=== PATIENT | female | born 1955 | race Caucasian/White ===

== ENCOUNTER → 2016-03-16 | Outpatient (REF) | payer OTHER ==
[2016-03-16 17:31] LABS: ANION GAP 6 MEQ/L (8-16); BLOOD UREA NITROGEN 10 MG/DL (7-18); CALCIUM LEVEL 9.5 MG/DL (8.8-10.2); CARBON DIOXIDE LEVEL 32 MEQ/L (21-32); CHLORIDE LEVEL 104 MEQ/L (98-107); CREATININE FOR GFR 0.76 MG/DL (0.55-1.02); GLOMERULAR FILTRATION RATE > 60.0 (>45); GLUCOSE, FASTING 91 MG/DL (80-110); POTASSIUM SERUM 4.2 MEQ/L (3.5-5.1); SODIUM LEVEL 142 MEQ/L (136-145)
[2016-03-16 18:17] LABS: MEAN CORPUSCULAR HGB CONC 33.5 g/dl (32.0-36.5); MEAN CORPUSCULAR VOLUME 89.6 fl (80.0-96.0); RED CELL DISTRIBUTION WIDTH 13.2 % (11.5-14.5)
== END ==
LOC: M SFHCLERA 11:08
PROVIDERS: ATTEND Family Medicine
DX: R53.82 Chronic fatigue, unspecified (principal); E55.9 Vitamin D deficiency, unspecified

== ENCOUNTER → 2016-06-15 | Outpatient (REF) | payer OTHER ==
[2016-06-15 11:58] LABS: MEAN CORPUSCULAR HEMOGLOBIN 30.9 pg (27.0-33.0); MEAN CORPUSCULAR HGB CONC 34.2 g/dl (32.0-36.5); MEAN CORPUSCULAR VOLUME 90.4 fl (80.0-96.0); RED CELL DISTRIBUTION WIDTH 13.9 % (11.5-14.5)
[2016-06-15 12:19] LABS: ALBUMIN 3.3 GM/DL (3.2-5.2); ALBUMIN/GLOBULIN RATIO 1.03 (1.00-1.93); ALKALINE PHOSPHATASE 46 U/L (45-117); ALT/SGPT 24 U/L (12-78); ANION GAP 5 MEQ/L (8-16); AST/SGOT 27 U/L (15-37); BILIRUBIN,TOTAL 0.6 MG/DL (0.2-1.0); BLOOD UREA NITROGEN 11 MG/DL (7-18); CALCIUM LEVEL 8.4 MG/DL (8.8-10.2); CARBON DIOXIDE LEVEL 32 MEQ/L (21-32); CHLORIDE LEVEL 105 MEQ/L (98-107); CHOLESTEROL LEVEL 142 MG/DL (<200); CREATININE FOR GFR 0.71 MG/DL (0.55-1.02); GLOMERULAR FILTRATION RATE > 60.0 (>45); GLUCOSE, FASTING 86 MG/DL (80-110); POTASSIUM SERUM 4.4 MEQ/L (3.5-5.1); SODIUM LEVEL 142 MEQ/L (136-145); TOTAL PROTEIN 6.5 GM/DL (6.4-8.2); TRIGLYCERIDES LEVEL 66 MG/DL (<150)
== END ==
LOC: M SFHCLERA 09:46
PROVIDERS: ATTEND Family Medicine
DX: E78.2 Mixed hyperlipidemia (principal); R73.02 Impaired glucose tolerance (oral); R53.82 Chronic fatigue, unspecified; E55.9 Vitamin D deficiency, unspecified

== ENCOUNTER → 2017-01-25 | Outpatient (REF) | payer OTHER | LOC: M SFHCLERA 09:32 | PROVIDERS: ATTEND Family Medicine | DX: R53.82 Chronic fatigue, unspecified (principal); E78.5 Hyperlipidemia, unspecified ==

== ENCOUNTER → 2017-07-19 | Outpatient (CLI) | payer BC, OTHER ==
[2017-07-19 15:35] LABS: ALBUMIN 3.5 GM/DL (3.2-5.2); ALBUMIN/GLOBULIN RATIO 1.09 (1.00-1.93); ALKALINE PHOSPHATASE 51 U/L (45-117); ALT/SGPT 24 U/L (12-78); ANION GAP 6 MEQ/L (8-16); AST/SGOT 28 U/L (7-37); BILIRUBIN,TOTAL 0.7 MG/DL (0.2-1.0); BLOOD UREA NITROGEN 14 MG/DL (7-18); CARBON DIOXIDE LEVEL 32 MEQ/L (21-32); CHLORIDE LEVEL 103 MEQ/L (98-107); CHOLESTEROL LEVEL 132 MG/DL (<200); CHOLESTEROL RISK RATIO 2.588 (<5); CREATININE FOR GFR 0.73 MG/DL (0.55-1.30); GLOMERULAR FILTRATION RATE > 60.0 (>45); GLUCOSE, FASTING 94 MG/DL (70-100); HDL CHOLESTEROL 51 MG/DL (>40); LDL CHOLESTEROL 57.6 MG/DL (<100); NON-HDL-C 81 MG/DL; POTASSIUM SERUM 3.7 MEQ/L (3.5-5.1); SODIUM LEVEL 141 MEQ/L (136-145); TOTAL PROTEIN 6.7 GM/DL (6.4-8.2); TRIGLYCERIDES LEVEL 117 MG/DL (<150)
== END ==
LOC: M RAD 14:32
DX: Z12.31 Encounter for screening mammogram for malignant neoplasm of breast (principal); E78.2 Mixed hyperlipidemia; N60.31 Fibrosclerosis of right breast; N60.32 Fibrosclerosis of left breast
CPT/HCPCS: 77067

== ENCOUNTER 2017-10-07 10:54 | Emergency (ER) | payer BC, OTHER | END 2017-10-07 12:13 | disposition home or self-care (01) | LOC: M ED 10:54 | DX: S90.112A Contusion of left great toe without damage to nail, initial encounter (principal); W19.XXXA Unspecified fall, initial encounter; Y92.099 Unspecified place in other non-institutional residence as the place of occurrence of the external cause; Y93.9 Activity, unspecified; Y99.9 Unspecified external cause status; Z87.891 Personal history of nicotine dependence; Z79.82 Long term (current) use of aspirin; Z79.899 Other long term (current) drug therapy; Z88.5 Allergy status to narcotic agent; Z88.0 Allergy status to penicillin | CPT/HCPCS: 73660 ==

== ENCOUNTER → 2017-10-20 | Outpatient (CLI) | payer BC, OTHER | LOC: M RAD 08:08 | DX: M79.604 Pain in right leg (principal) | CPT/HCPCS: 73564 ==

== ENCOUNTER → 2020-03-05 | Outpatient (CLI) | payer MEDICARE, BC, OTHER ==
[~2020-03-05] MED LIST: ASPI81TA86 PO; ATOR1TAB21; CENT1TAB PO; CITA20TA6; LOSARTAN/HCT
[2020-03-05 11:45] LABS: BASO # 0.1 10^3/uL (0.0-0.2); BASO % 1.3 % (0.0-1.0); EOS # 0.2 10^3/uL (0.0-0.5); EOS % 3.4 % (0.0-3.0); HEMATOCRIT 40.4 % (36.0-47.0); HEMOGLOBIN 13.6 g/dl (12.0-15.5); LYMPH % 32.7 % (24.0-44.0); MEAN CORPUSCULAR HGB CONC 33.7 g/dl (32.0-36.5); MONO # 0.5 10^3/uL (0.0-0.8); MONO % 7.6 % (0.0-5.0); NEUTROPHILS # 3.4 10^3/uL (1.5-8.5); NEUTROPHILS % 54.5 % (36.0-66.0); PLATELET COUNT, AUTOMATED 224 10^3/uL (150-450); RED BLOOD COUNT 4.54 10^6/uL (4.00-5.40); WHITE BLOOD COUNT 6.2 10^3/uL (4.0-10.0)
[2020-03-05 12:50] LABS: BLOOD UREA NITROGEN 13 MG/DL (7-18); CALCIUM LEVEL 9.4 MG/DL (8.8-10.2); CARBON DIOXIDE LEVEL 31 MEQ/L (21-32); CHLORIDE LEVEL 104 MEQ/L (98-107); CHOLESTEROL LEVEL 125 MG/DL (<200); CHOLESTEROL RISK RATIO 2.906 (<5); GLOMERULAR FILTRATION RATE > 60.0 (>45); GLUCOSE, FASTING 98 MG/DL (70-100); HDL CHOLESTEROL 43 MG/DL (>40); LDL CHOLESTEROL 64 MG/DL (<100); NON-HDL-C 82 MG/DL; POTASSIUM SERUM 4.2 MEQ/L (3.5-5.1); SODIUM LEVEL 140 MEQ/L (136-145); TRIGLYCERIDES LEVEL 91 MG/DL (<150)
[2020-03-05 15:51] LABS: HEMOGLOBIN A1c 6.3 %
== END ==
LOC: M LAB 10:27
PROVIDERS: ATTEND Family Medicine
DX: E78.2 Mixed hyperlipidemia (principal); I10 Essential (primary) hypertension; R73.01 Impaired fasting glucose

== ENCOUNTER → 2021-01-02 | Outpatient (CLI) | payer MEDICARE, BC, OTHER ==
[~2021-01-02] MED LIST changes: +AMIT25TA17 PO; -ATOR1TAB21; +ATOR1TAB21 PO; -CITA20TA6; +CITA20TA6 PO; +HYDR12.55 PO; +LOSA50TA88 PO
== END ==
LOC: M LABSMTC 09:34
PROVIDERS: ATTEND Anesthesiology
DX: Z11.52 Encounter for screening for COVID-19 (principal); Z20.828 Contact with and (suspected) exposure to other viral communicable diseases

== ENCOUNTER 2021-01-07 07:45 | Day surgery (SDC) | payer MEDICARE, BC, OTHER ==
[~2021-01-07] VITALS: Ht 160 cm; Wt 113.1 kg
[~2021-01-07 07:45] MED LIST changes: +LIDOCAINE 2% 100MG/5ML SDV (FOR ANES.) As Ordered ONE; +NS 1,000 ML IV ONE; +propofoL 200 MG/20 ML VIAL As Ordered ONE
--- OUTSIDE RECORDS SUMMARY | 2021-01-07 07:49 | CCD | Continuity of Care Document ---
Author Author Ava WILSON DPM-PC Organization Unknown Address [address] [place] [address] Phone [phone] Care Team Providers Care Underground Roof Bolter Name Role Phone Formerly [facility], [facility] AUTM [phone] Problems Active Problems Provider Date Essential hypertension De Henderson MD Onset: 06/17/2020 Pure hypercholesterolemia De Henderson MD Onset: 021 Pain in limb Kayce Wilson DPM-pc Onset: 10/26/2020 Ingrowing nail Kayce Wilson DPM-pc Onset: 10/26/2020 Pronation Kayce Wilson DPM-pc Onset: 10/26/2020 Epidermoid cyst De Henderson MD Onset: 06/17/2020 Social History Type Date Description Comments Sex Unknown Tobacco Use Start: Unknown Patient has never smoked Smoking Status Reviewed: 10/26/20 Patient has never smoked Allergies, Adverse Reactions, Alerts Active Allergies Criticality Reaction | Severity Comments Date Penicillin V Unable to assess criticality 06/17/2020 Morphine Unable to assess criticality Nausea 10/26/2020 Medications Active Medications SIG Qnty Indications Ordering Provide r Date Hydrochlorothiazide 12.5mg Capsule s 1 tab every other day 90caps De Henderson MD 06/17/2020 Atorvastatin Calcium 20mg Tablets 1 by mouth every day 90tamartín Henderson MD 06/17/2020 Citalopram Hydrobromide 10mg Table ts 1 tablet by mouth daily. 90tamartín Henderson MD 06/18/19 Losartan Potassium 50mg Tablets Take One Tablet By Mouth Every Day Unknown Amitriptyline HCL 25mg Tablets Take One Tablet By Mouth AT Bedtime Unknown Multivitamin Tablets take one tablet by mouth every morning Unknown History Medications Lotrimin Ultra 1% Cream apply locally to skin rash twice daily for 6 weeks 24gm De Henderson MD 06/17/2020 - 10/26/2020 Immunizations Description No Information Available Vital Signs Date Vital Result Comment 07/09/2020 9:49am BP Systolic 115 mmHg BP Diastolic 78 mmHg Heart Rate 111 /min Body Temperature 98.6 F Respiratory Rate 18 /min O2 % BldC Oximetry 96 % Weight 255.00 lb Weight 115.668 kg Height 63 inches 5'3" BMI (Body Mass Index) 45.2 kg/m2 BSA (Body Surface Area) 2.14 m2 06/17/2020 10:47am BP Systolic 132 mmHg BP Diastolic 83 mmHg Heart Rate 90 /min Body Temperature 98.2 F Respiratory Rate 18 /min O2 % BldC Oximetry 97 % Weight 263.00 lb Weight 119.297 kg Height 63 inches 5'3" BMI (Body Mass Index) 46.6 kg/m2 BSA (Body Surface Area) 2.17 m2 Results Description No Information Available Procedures Date Code Description Status 10/26/2020 86483 Office/Outpatient New Low MDM 30 -44 Minutes Completed 10/26/2020 84941 Strapping Ankle/foot Completed 10/26/2020 12909 Excise Nail Bed & Matrix Complet ed 07/09/2020 78850 Office/Outpatient New SF MDM 15- 29 Minutes Completed 06/17/2020 97791 Office/Outpatient New SF MDM 15- 29 Minutes Completed Medical Devices Description No Information Available Encounters Description No Information Available Assessments Date Code Description Provider 10/26/2020 M21.6x9 Other acquired deformities of un specified foot Aj Stafford 10/26/2020 M76.62 Achilles tendinitis, left leg De Aj Canales 10/26/2020 L60.0 Ingrowing nail Aj Stafford 10/26/2020 M79.672 Pain in left foot Aj Stafford 07/09/2020 L72.3 Sebaceous cyst De Henderson MD 06/17/2020 L72.3 Sebaceous cyst De Henderson MD Plan of Treatment No Information Available Functional Status Description No Information Available Mental Status Description No Information Available Referrals Description No Information Available
--- OUTSIDE RECORDS SUMMARY | 2021-01-07 07:49 | CCD | Continuity of Care Document ---
Author Ava De Santiago DP- Organization Unknown Address [address] [place] [address] Phone [phone] Care Team Providers Care Room Attendant Name Role Phone [facility] AUTM [phone] Problems Active Problems Provider Date Essential hypertension De Henderson MD Onset: 06/17/2020 Pure hypercholesterolemia De Henderson MD Onset: 021 Epidermoid cyst De Henderson MD Onset: 06/17/2020 Social History Type Date Description Comments Sex Unknown Tobacco Use Start: Unknown Patient has never smoked Allergies, Adverse Reactions, Alerts Active Allergies Criticality Reaction | Severity Comments Date Penicillin V Unable to assess criticality 06/17/2020 Morphine Unable to assess criticality Nausea 10/26/2020 Medications Active Medications SIG Qnty Indications Ordering Provide r Date Hydrochlorothiazide 12.5mg Capsule s 1 tab every other day 90caps De Henderson MD 06/17/2020 Atorvastatin Calcium 20mg Tablets 1 by mouth every day 90tabs De Henderson MD 06/17/2020 Citalopram Hydrobromide 10mg Table ts 1 tablet by mouth daily. 90tabs De Henderson MD 06/18/19 21 Losartan Potassium 50mg Tablets Take One Tablet [...] Information Available Procedures Date Code Description Status 07/09/2020 08456 Office/Outpatient New [facility] 15- 29 Minutes Completed 06/17/2020 01524 Office/Outpatient New [facility] 15- 29 Minutes Completed Medical Devices Description No Information Available Encounters Description No Information Available Assessments Date Code Description Provider 07/09/2020 L72.3 Sebaceous cyst De Henderson MD 06/17/2020 L72.3 Sebaceous cyst De Henderson MD Plan of Treatment Future Appointment(s):* 11/04/2020 9:45 am - Kayce Cueva DPM-pc at [facility] Podiatry Functional Status Description No Information Available Mental Status Description No Information Available Referrals Description No Information Available
--- OUTSIDE RECORDS SUMMARY | 2021-01-07 07:49 | CCD | Continuity of Care Document ---
Author Ava Rosa Organization Unknown Address [address], [address] [place] [address] Phone [phone] Care Team Providers Care Grill Associate Name Role Phone Chapito Santana M.D. AUTM [phone] Problems Active Problems Provider Date Essential hypertension MICHI Espinosa Onset: 10/21/2020 Social History Type Date Description Comments Sex Unknown ETOH Use Rarely Recreational Drug Use Denies Drug Use Tobacco Use Start: Unknown End: Unknown Patient is a former smoker quit in early Allergies, Adverse Reactions, Alerts Active Allergies Criticality Reaction | Severity Comments Date Penicillin V Unable to assess criticality rash, vomiting 10/21/2020 Morphine Unable to assess criticality Rash, vomiting 10/21/2020 Medications Active Medications SIG Qnty Indications Ordering Provide r Date Amitriptyline HCL 25mg Tablets Take One Tablet By Mouth AT Bedtime Unknown Losartan Potassium 50mg Tablets Take One Tablet By Mouth Every Day Unknown Hydrochlorothiazide 12.5mg Tablets Take One Tablet By Mouth Every Morning Unknown Citalopram Hydrobromide 20mg Table ts Take One Tablet By Mouth Every Day Unknown Atorvastatin Calcium 20mg Tablets Take One Tablet By Mouth Every Day Unknown Centrum Silver 50+Women 50+Women T ablets 1 by mouth every day Unknown Stool Softener 100mg Capsules take one capsule by mouth once a day Unknown Immunizations Description No Information Available Vital Signs Date Vital Result Comment 10/21/2020 1:46pm BP Systolic 138 mmHg BP Diastolic 81 mmHg Heart Rate 87 /min Body Temperature 98.4 F Height 63 inches 5'3" Weight 251.00 lb BMI (Body Mass Index) 44.5 kg/m2 [place] Body Weight 115 lb Weight 113.854 kg BSA (Body Surface Area) 2.13 m2 Results Description No Information Available Procedures Date Code Description Status 10/21/2020 33486 Office/Outpatient New Low MDM 30 -44 Minutes Completed Medical Devices Description No Information Available Encounters Type Date Location Provider Dx Diagnosis Office Visit 10/21/2020 1:30p [facility] MICHI Walker Z12.11 Encounter for screening for malignant ne oplasm of colon Z80.0 Family history of malignant neoplasm of digestive organs Assessments Date Code Description Provider 10/21/2020 Z12.11 Encounter for screening for melissa gnant neoplasm of colon MICHI Espinosa 10/21/2020 Z80.0 Family history of malignant neop lasm of digestive organs MICHI Espinosa Plan of Treatment Future Appointment(s):* 01/18/2021 9:15 am - MICHI Espinosa at [facility] * 01/07/2021 9:00 am - Agapito Swartz JR, MD at [facility] 10/21/2020 - MICHI Espinosa* Z12.11 Encounter for screening for malignant neoplasm of colon * Z80.0 Family history of malignant neoplasm of digestive organs Functional Status Description No Information Available Mental Status Description No Information Available Referrals Description No Information Available
--- OUTSIDE RECORDS SUMMARY | 2021-01-07 07:49 | CCD | Continuity of Care Document ---
Author Ava Rosa Organization Unknown Address [address], [address] [place] [address] Phone [phone] Care Team Providers Care Coal Handling Supervisor Name Role Phone Chapito Santana M.D. AUTM [phone] Problems Active Problems Provider Date Essential hypertension [...] lb BMI (Body Mass Index) 44.5 kg/m2 [place] Body Weight 115 lb Weight 113.854 kg BSA (Body Surface Area) 2.13 m2 Results Description No Information Available Procedures Description No Information Available Medical Devices Description No Information Available Encounters Description No Information Available Assessments Date Code Description Provider 10/21/2020 Z12.11 Encounter for screening for melissa gnant neoplasm of colon MICHI Espinosa 10/21/2020 Z80.0 Family history of malignant neop lasm of digestive organs MICHI Epsinosa Plan of Treatment No Information Available Functional Status Description No Information Available Mental Status Description No Information Available Referrals Description No Information Available
--- OUTSIDE RECORDS SUMMARY | 2021-01-07 07:49 | CCD ---
Author Author [facility] Organization [facility] Address Unknown Phone Unavailable Care Team Providers Care Rental Sales Agent Name Role Phone Chapito Santana Unavailable PROBLEMS Type Condition ICD9-CM Code [id number] Code Onset Dates Condition S tatus W/U Status Risk SNOMED Code Notes Problem Essential (primary) hypertension I10 Active conf irmed 91569850 Problem Impaired glucose tolerance R73.02 Active confirmed 2756451 Problem Chronic fatigue R53.82 Active confirmed 5270 2003 Problem Mixed hyperlipidemia E78.2 Active confirmed 795535350 Problem Moderate major depression F32.1 Active confirmed 578201 Problem Vitamin D insufficiency E55.9 Active confirmed 440545886 Problem Skin candidiasis B37.2 Active confirmed 498 05476 Problem Type 2 diabetes mellitus wit hout complication, without long-term current use of insulin E11.9 Active confirmed 759839804 Problem Abdominal pannus E65 Active confirmed 106 8088656041 Problem Dysthymia F34.1 Active confirmed 82692482 Problem External hemorrhoid K64.4 Active confirmed 96702787 Problem Insomnia, unspecified type G47.00 Active confirmed 986857055 Problem Constipation, unspecified constipation type K59.00 Active confirmed 42833759 Problem Mild episode of recurrent major depressive disorder F33.0 Active confirmed 470385068 Problem Depression, unspecified depression type F32.9 Active confirmed 67604508 Problem Hyperlipidemia, unspecified hyperlipidemia type E7 8.5 Active confirmed 93526876 Problem Obesity, morbid, BMI 40.0-49.9 E66.01 Active confir med 632068984 ALLERGIES Allergen (clinical drug ingredient) Drug/Non Drug Allergy do cumented on EMR Reaction Allergy Type Onset Date Status Penicillin (For Allergies Use Only) Hives Drug Allerg y Active ENCOUNTERS from 1955 to 2020-11-05 Encounter Location Date Provider Diagnosis [facility] [place] [address] [facility] [phone] [place] [address] 29 Oct, 2020 Chapito Santana IMMUNIZATIONS Vaccine Route Administration Date Status Moderna #1 dose COVID-19(given elsewhere) SARSCOV2 VAC 100MC G/0.5ML IM Unknown Apr 03, 2020 Administered Moderna #2 dose COVID-19(given elsewhere) SARSCOV2 VAC 100MC G/0.5ML IM Unknown May 04, 2020 Administered COVID-19 dose #2 given elsewhere Unspecified Unknown Apr Administered COVID-19 dose #1 given elsewhere Unspecified Unknown Apr 03, 2020 Administered Influenza Pharmacy Given Unknown Nov 20, 2018 Adminis tered Pneumococcal Adult 0.5mL Pneumovax 23 IM Intramuscular Sep 23 Administered TDAP 0.5mL (Boostrix) IM Intramuscular Jan 24, 2018 Administe red Influenza 6mo & up Fluzone Unknown Nov 06, 2014 Admin istered Influenza 6mo & up Fluzone Unknown Apr 04, 2014 Admin istered SOCIAL HISTORY Tobacco Use: Social History Observation Description Date Details (start date - stop date) Former Smoker Sex Assigned At : Social History Observation Description Sex Assigned At Unknown Sexual Hx: Question Answer Notes Had sex in the last 12 months (vaginal, oral, or anal)? No Have you ever had an STD? No Alcohol Screening: Question Answer Notes Did you have a drink containing alcohol in the past year? No Points 0 Interpretation Negative BMI Care Goal Follow-Up Question Answer Notes Above Normal BMI Follow-Up Dietary management educatio n, guidance, and counseling Tobacco Use: Question Answer Notes Are you a: former smoker How long has it been since you last smoked? > 10 years REASON FOR REFERRAL No Information VITAL SIGNS No information MEDICATIONS Medication SIG (Take, Route, Frequency, Duration) Notes Start Da te End Date Status Amitriptyline HCl 25 MG 1 tablet at bedtime Orally Once a day for 90 days Active Losartan Potassium 50 MG 1 tablet Orally Once a day for 90 d ays take individually while combo med is on backorder Active Multivital 1 tab(s) Orally daily Act patrick Senna S 8.6-50 MG 2 tablets in the evening as needed Orally qhs for 90 day(s) Feb, Active Hydrochlorothiazide 12.5 MG 1 tablet in the morning Or ally Once a day for 90 days take individually while combo med is on backorder Active Clobetasol Propionate 0.05 % 1 application to affected area of belly Externally As needed for 30 Days Active Atorvastatin Calcium 20 MG 1 tablet Orally Once a day for 90 Active Citalopram Hydrobromide 20 MG 1 tablet Orally Once a day for 90 day(s ) Active Keflex 250 MG 1 capsule Orally four times daily Not-Taking PROCEDURES No Information RESULTS No Results REASON FOR VISIT Atorvastatin refill MEDICAL (GENERAL) HISTORY Type Description Date Medical History HTN (hypertension) Medical History Hyperglycemia Medical History Depression Medical History Morbid obesity with BMI of 40.0-44.9, ad ult Medical History Constipation Medical History Hemorrhoids Medical History Skin candidiasis Medical History Right wrist pain Medical History Sebaceous cyst of labia Medical History Covid vaccine completed Surgical History appendectomy 1982 Surgical History multiple manager gyn surgeries Surgical History total hysterectomy 1996 Hospitalization History above Hospitalization History COVID/sepsis 01/26/2020 Goals Section No Information Health Concerns No Information MEDICAL EQUIPMENT No Information MENTAL STATUS No Information FUNCTIONAL STATUS No Information ASSESSMENTS No Information PLAN OF TREATMENT Medication Medication Name Sig Start Date Stop Date Amitriptyline HCl 25 MG 1 tablet at bedtime Orally Once a day fo r 90 days Atorvastatin Calcium 20 MG 1 tablet Orally Once a day for 90 Hydrochlorothiazide 12.5 MG 1 tablet in the morning Or ally Once a day for 90 days Citalopram Hydrobromide 20 MG 1 tablet Orally Once a day for 90 day(s) Losartan Potassium 50 MG 1 tablet Orally Once a day for 90 days Next Appt Details Provider Name:Chapito Santana, 2021-03-24 11:00:00 AM, [address] [facility], , [place], [address], Insurance Providers Payer Name Payer Address Payer Phone Insured Name Patient Relati onship to Insured Coverage Start Date Coverage End Date MEDICARE Part A and B [address] [facility] [id number] ABBIE R[facility]NER [facility] [address] [facility] [id number] ABBIE YAÑEZ
--- OUTSIDE RECORDS SUMMARY | 2021-01-07 07:50 | CCD ---
Author Author [facility] Organization [facility] Address Unknown Phone Unavailable Care Team Providers Care Superintendent Police Name Role Phone Castro Falanga, A Elaine IRONING PLEATER Unavailable Unavailable Winslow Falanga, A Elaine IRONING PLEATER Unavailable Unavailable Castro Falanga, A Elaine IRONING PLEATER Unavailable Unavailable Winslow Falanga, A Elaine IRONING PLEATER Unavailable Unavailable Castro Falanga, A Elaine IRONING PLEATER Unavailable Unavailable Winslow Falanga, A Elaine IRONING PLEATER Unavailable Unavailable Winslow Falanga, A Elaine IRONING PLEATER Unavailable Unavailable Winslow Falanga, A Elaine IRONING PLEATER Unavailable Unavailable Winslow Falanga, A Elaine IRONING PLEATER Unavailable Unavailable Winslow Falanga, A Elaine IRONING PLEATER Unavailable Unavailable Castro Falanga, A Elaine IRONING PLEATER Unavailable Unavailable Castro Falanga, A Elaine IRONING PLEATER Unavailable Unavailable Winslow Falanga, A Elaine IRONING PLEATER Unavailable Unavailable Castro Falanga, A Elaine IRONING PLEATER Unavailable Unavailable Castro Falanga, A Elaine IRONING PLEATER Unavailable Unavailable Castro Falanga, A Elaine IRONING PLEATER Unavailable Unavailable Winslow Falanga, A Elaine IRONING PLEATER Unavailable Unavailable Castro Falanga, A Elaine IRONING PLEATER Unavailable Unavailable Castro Falanga, A Elaine IRONING PLEATER Unavailable Unavailable Castro Falchristaa, A Elaine IRONING PLEATER Unavailable Unavailable Winslow Falchristaa, A Elaine IRONING PLEATER Unavailable Unavailable Winslow Falchristaa, A Elaine IRONING PLEATER Unavailable Unavailable Castro Falchristaa, A Elaine IRONING PLEATER Unavailable Unavailable Winslow Falchristaa, A Elaine IRONING PLEATER Unavailable Unavailable Winslow Falchristaa, A Elaine IRONING PLEATER Unavailable Unavailable Winslow Falchristaa, A Elaine IRONING PLEATER Unavailable Unavailable Castro Monya, A Elaine IRONING PLEATER Unavailable Unavailable Castro Falchristaa, A Elaine IRONING PLEATER Unavailable Unavailable Castro Elisabeth, A Elaine IRONING PLEATER Unavailable Unavailable Castro Falchristaa, A Elaine IRONING PLEATER Unavailable Unavailable [facility] Unavailable Unavailable FINN, W ERIC Unavailable Unavailable FINN, W ERIC Unavailable Unavailable FINN, W ERIC Unavailable Unavailable FINN, W ERIC Unavailable Unavailable FINN, W ERIC Unavailable Unavailable FINN, W ERIC Unavailable Unavailable FINN, W ERIC Unavailable Unavailable FINN, W ERIC Unavailable Unavailable FINN, W ERIC Unavailable Unavailable FINN, W ERIC Unavailable Unavailable FINN, W ERIC Unavailable Unavailable FINN, W ERIC Unavailable Unavailable FINN, W ERIC Unavailable Unavailable FINN, W ERIC Unavailable Unavailable FINN, W ERIC Unavailable Unavailable FINN, W ERIC Unavailable Unavailable FINN, W ERIC Unavailable Unavailable FINN, W ERIC Unavailable Unavailable FINN, W ERIC Unavailable Unavailable FINN, W ERIC Unavailable Unavailable FINN, W ERIC Unavailable Unavailable FINN, W ERIC Unavailable Unavailable FINN, W ERIC Unavailable Unavailable FINN, W ERIC Unavailable Unavailable FINN, W ERIC Unavailable Unavailable FINN, W ERIC Unavailable Unavailable FINN, W ERIC Unavailable Unavailable FINN, W ERIC Unavailable Unavailable FINN, W ERIC Unavailable Unavailable FINN, W ERIC Unavailable Unavailable FINN, W ERIC Unavailable Unavailable FINN, W ERIC Unavailable Unavailable FINN, W ERIC Unavailable Unavailable FINN, W ERIC Unavailable Unavailable FINN, W ERIC Unavailable Unavailable FINN, W ERIC Unavailable Unavailable FINN, W ERIC Unavailable Unavailable FINN, W ERIC Unavailable Unavailable FINN, W ERIC Unavailable Unavailable Eugenia Henderson MD Unavailable Unavailable Eugenia Henderson MD Unavailable Unavailable Eugenia Henderson MD Unavailable Unavailable Eugenia Henderson MD Unavailable Unavailable Eugenia Henderson MD Unavailable Unavailable Eugenia Henderson MD Unavailable Unavailable Eugenia Henderson MD Unavailable Unavailable Santiago, Eugenia Kc MD Unavailable Unavailable Santiago, Eugenia Kc MD Unavailable Unavailable Santiago, Eugenia Kc MD Unavailable Unavailable Santiago, Eugenia Kc MD Unavailable Unavailable Santiago, Eugenia Kc MD Unavailable Unavailable Santiago, Eugenia Kc MD Unavailable Unavailable Santiago, Eugenia Kc MD Unavailable Unavailable Santiago, Eugenia Kc MD Unavailable Unavailable Santiago, Eugenia Kc MD Unavailable Unavailable Santiago, Eugenia Kc MD Unavailable Unavailable Santiago, Eugenia Kc MD Unavailable Unavailable Santiago, Eugenia Kc MD Unavailable Unavailable Santiago, Eugenia Kc MD Unavailable Unavailable Santiago, Eugenia Kc MD Unavailable Unavailable Santiago, Eugenia Kc MD Unavailable Unavailable Santiago, Eugenia Kc MD Unavailable Unavailable Santiago, Eugenia Kc MD Unavailable Unavailable Santiago, Eugenia Kc MD Unavailable Unavailable Santiago, Eugenia Kc MD Unavailable Unavailable Santiago, Eugenia Kc MD Unavailable Unavailable Santiago, Eugenia Kc MD Unavailable Unavailable Santiago, Eugenia Kc MD Unavailable Unavailable Santiago, Eugenia Kc MD Unavailable Unavailable Santiago, Eugenia Kc MD Unavailable Unavailable Santiago, Eugenia Kc MD Unavailable Unavailable Santiago, Eugenia Kc MD Unavailable Unavailable Santiago, Eugenia Kc MD Unavailable Unavailable Santiago, Eugenia Kc MD Unavailable Unavailable Santiago, Eugenia Kc MD Unavailable Unavailable Santiago, Eugenia Kc MD Unavailable Unavailable Santiago, Eugenia Kc MD Unavailable Unavailable Santiago, Eugenia Kc MD Unavailable Unavailable Satniago, Eugenia Kc MD Unavailable Unavailable Santiago, Eugenia Kc MD Unavailable Unavailable Santiago, Eugenia Kc MD Unavailable Unavailable Caterina NARANJO MD Unavailable Unavailable Caterina NARANJO MD Unavailable Unavailable Caterina NARANJO MD Unavailable Unavailable Caterina NARANJO MD Unavailable Unavailable Caterina NARANJO MD Unavailable Unavailable Caterina NARANJO MD Unavailable Unavailable Caterina NARANJO MD Unavailable Unavailable Caterina NARANJO MD Unavailable Unavailable Caterina NARANJO MD Unavailable Unavailable Davila, L Zo RPA Unavailable Unavailable Davila, L Zo RPA Unavailable Unavailable Davila, L Zo RPA Unavailable Unavailable Davila, L Zo RPA Unavailable Unavailable Davila, L Zo RPA Unavailable Unavailable Davila, L Zo RPA Unavailable Unavailable Davila, L Zo RPA Unavailable Unavailable Davila, L Zo RPA Unavailable Unavailable Davila, L Zo RPA Unavailable Unavailable Davila, L Zo RPA Unavailable Unavailable Davila, L Zo RPA Unavailable Unavailable Davila, L Zo RPA Unavailable Unavailable Davila, L Zo RPA Unavailable Unavailable Davila, L Zo RPA Unavailable Unavailable Davila, L Zo RPA Unavailable Unavailable Davila, L Zo RPA Unavailable Unavailable Davila, L Zo RPA Unavailable Unavailable Davila, L Zo RPA Unavailable Unavailable Davila, L Zo RPA Unavailable Unavailable Davila, L Zo RPA Unavailable Unavailable Davila, L Zo RPA Unavailable Unavailable Davila, L Zo RPA Unavailable Unavailable Davila, L Zo RPA Unavailable Unavailable Davila, L Zo RPA Unavailable Unavailable Davila, L Zo RPA Unavailable Unavailable Davila, L Zo RPA Unavailable Unavailable Davila, L Zo RPA Unavailable Unavailable Davila, L Zo RPA Unavailable Unavailable Davila, L Zo RPA Unavailable Unavailable Davila, L Zo RPA Unavailable Unavailable Davila, L Zo RPA Unavailable Unavailable Davila, L Zo RPA Unavailable Unavailable Eugenia Henderson MD Unavailable Unavailable SantiagoEugenia marks MD Unavailable Unavailable SantiagoEugenia marks MD Unavailable Unavailable SantiagoEugenia marks MD Unavailable Unavailable SantiagoEugenia marks MD Unavailable Unavailable SantiagoEugenia marks MD Unavailable Unavailable SantiagoEugenia marks MD Unavailable Unavailable SantiagoEugenia marks MD Unavailable Unavailable SantiagoEugenia marks MD Unavailable Unavailable SantiagoEugenia marks MD Unavailable Unavailable SantiagoEugenia marks MD Unavailable Unavailable SantiagoEugenia marks MD Unavailable Unavailable SantiagoEugenia marks MD Unavailable Unavailable SantiagoEugenia marks MD Unavailable Unavailable SantiagoEugenia marks MD Unavailable Unavailable SantiagoEugenia marks MD Unavailable Unavailable SantiagoEugenia marks MD Unavailable Unavailable SantiagouEgenia marks MD Unavailable Unavailable SantiagoEugenia marks MD Unavailable Unavailable SantiagoEugenia marks MD Unavailable Unavailable Eugenia Henderson MD Unavailable Unavailable SantiagoEugenia marks MD Unavailable Unavailable SantiagoEugenia marks MD Unavailable Unavailable SantiagoEugenia marks MD Unavailable Unavailable SantiagoEugenia marks MD Unavailable Unavailable SantiagoEugenia marks MD Unavailable Unavailable SantiaogEugenia marks MD Unavailable Unavailable Eugenia Henderson MD Unavailable Unavailable Eugenia Henderson MD Unavailable Unavailable Eugenia Henderson MD Unavailable Unavailable Eugenia Henderson MD Unavailable Unavailable SantiagoEugenia marks MD Unavailable Unavailable Eugenia Henderson MD Unavailable Unavailable Eugenia Henderson MD Unavailable Unavailable Eugenia Henderson MD Unavailable Unavailable Eugenia Henderson MD Unavailable Unavailable Eugenia Henderson MD Unavailable Unavailable Eugenia Henderson MD Unavailable Unavailable SantiagoEugenia marks MD Unavailable Unavailable SantiagoEugenia marks MD Unavailable Unavailable SantiagoEugenia marks MD Unavailable Unavailable SantiagoEugenia marks MD Unavailable Unavailable KATIE, J RENNY DPM PC Unavailable Unavailable KATIE, J RENNY DPM PC Unavailable Unavailable KATIE, J RENNY DPM PC Unavailable Unavailable KATIE, J RENNY DPM PC Unavailable Unavailable KATIE, J RENNY DPM PC Unavailable Unavailable KATIE, J RENNY DPM PC Unavailable Unavailable KATIE, J RENNY DPM PC Unavailable Unavailable KATIE, J RENNY DPM PC Unavailable Unavailable KATIE, J RENNY DPM PC Unavailable Unavailable KATIE, J RENNY DPM PC Unavailable Unavailable KATIE, J RENNY DPM PC Unavailable Unavailable KATIE, J RENNY DPM PC Unavailable Unavailable KATIE, J RENNY DPM PC Unavailable Unavailable KATIE, J RENNY DPM PC Unavailable Unavailable KATIE, J RENNY DPM PC Unavailable Unavailable KATIE, J RENNY DPM PC Unavailable Unavailable KATIE, J RENNY DPM PC Unavailable Unavailable KATIE, J RENNY DPM PC Unavailable Unavailable KATIE, J RENNY DPM PC Unavailable Unavailable KATIE, J RENNY DPM PC Unavailable Unavailable KATIE, J RENNY DPM PC Unavailable Unavailable KATIE, J RENNY DPM PC Unavailable Unavailable KATIE, J RENYN DPM PC Unavailable Unavailable KATIE, J RENNY DPM PC Unavailable Unavailable KATIE, J RENNY DPM PC Unavailable Unavailable KATIE, J RENNY DPM PC Unavailable Unavailable KATIE, J RENNY DPM PC Unavailable Unavailable KATIE, J RENNY DPM PC Unavailable Unavailable WOLFENDEN, T CASS PA Unavailable Unavailable WOLFENDEN, T CASS PA Unavailable Unavailable WOLFENDEN, T CASS PA Unavailable Unavailable WOLFENDEN, T CASS PA Unavailable Unavailable WOLFENDEN, T CASS PA Unavailable Unavailable WOLFENDEN, T CASS PA Unavailable Unavailable WOLFENDEN, T CASS PA Unavailable Unavailable WOLFENDEN, T CASS PA Unavailable Unavailable WOLFENDEN, T CASS PA Unavailable Unavailable WOLFENDEN, T CASS PA Unavailable Unavailable WOLFENDEN, T CASS PA Unavailable Unavailable WOLFENDEN, T CASS PA Unavailable Unavailable WOLFENDEN, T CASS PA Unavailable Unavailable WOLFENDEN, T CASS PA Unavailable Unavailable WOLFENDEN, T CASS PA Unavailable Unavailable WOLFENDEN, T CASS PA Unavailable Unavailable WOLFENDEN, T CASS PA Unavailable Unavailable WOLFENDEN, T CASS PA Unavailable Unavailable WOLFENDEN, T CASS PA Unavailable Unavailable WOLFENDEN, T CASS PA Unavailable Unavailable WOLFENDEN, T CASS PA Unavailable Unavailable WOLFENDEN, T CASS PA Unavailable Unavailable WOLFENDEN, T CASS PA Unavailable Unavailable WOLFENDEN, T CASS PA Unavailable Unavailable WOLFENDEN, T CASS PA Unavailable Unavailable WOLFENDEN, T CASS PA Unavailable Unavailable WOLFENDEN, T CASS PA Unavailable Unavailable WOLFENDEN, T CASS PA Unavailable Unavailable WOLFENDEN, T CASS PA Unavailable Unavailable WOLFENDEN, T CASS PA Unavailable Unavailable CHANLIECCO, C RENÉE MD Unavailable Unavailable CHANLIECCO, C RENÉE MD Unavailable Unavailable CHANLIECCO, C RENÉE MD Unavailable Unavailable CHANLIECCO, C RENÉE MD Unavailable Unavailable CHANLIECCO, C RENÉE MD Unavailable Unavailable CHANLIECCO, C RENÉE MD Unavailable Unavailable CHANLIECCO, C RENÉE MD Unavailable Unavailable CHANLIECCO, C RENÉE MD Unavailable Unavailable CHANLIECCO, C RENÉE MD Unavailable Unavailable CHANLIECCO, C RENÉE MD Unavailable Unavailable CHANLIECCO, C RENÉE MD Unavailable Unavailable Re-disclosure Warning The records that you are about to access may contain information from federally-assisted alcohol or drug abuse programs. If such information is present, then the following federally mandated warning applies: This information has been disclosed to you from records protected by federal confidentiality rules (42 CFR part 2). The federal rules prohibit you from making any further disclosure of this information unless further disclosure is expressly permitted by the written consent of the person to whom it pertains or as otherwise permitted by 42 CFR part 2. A general authorization for the release of medical or other information is NOT sufficient for this purpose. The Federal rules restrict any use of the information to criminally investigate or prosecute any alcohol or drug abuse patient.The records that you are about to access may contain highly sensitive health information, the redisclosure of which is protected by Article 27-F of the [facility] Public Health law. If you continue you may have access to information: Regarding HIV / AIDS; Provided by facilities licensed or operated by the [facility] Office of Mental Health; or Provided by the [facility] Office for People With Developmental Disabilities. If such information is present, then the following [facility] mandated warning applies: This information has been disclosed to you from confidential records which are protected by state law. State law prohibits you from making any further disclosure of this information without the specific written consent of the person to whom it pertains, or as otherwise permitted by law. Any unauthorized further disclosure in violation of state law may result in a fine or long term sentence or both. A general authorization for the release of medical or other information is NOT sufficient authorization for further disc losure. Allergies and Adverse Reactions Type Description Substance Reaction Status Data Source(s ) Propensity to adverse reactions PENICILLIN PENICILLIN HIVES [facility] Encounters Encounter Providers Location Date Indications Data Source(s ) Outpatient Attender: RENNY WILSON DPM PCConsultant: IRMA BRISENO 11/04/2020 09:22:00 AM EDT - 11/04/2020 09:22:00 AM EDT [facility] Unknown [address] [facility] [id number] 11/04/2020 12:00:00 AM EDT eCW1 ([facility]) Outpatient Attender: RENNY WILSON DPM PCConsultant: IRMA BRISENO 10/26/2020 09:36:00 AM EDT - 10/26/2020 09:36:00 AM EDT [facility] Outpatient Attender: Zo Varela/Dayna/Raul/Archana butts 10/21/2020 01:30:00 PM EDT [facility] ([facility]) Unknown [address] [facility] [place] [address] 09/30/2020 12:00:00 AM EDT eCW1 ([facility]) Unknown [address] [facility] [place] [address] 09/27/2020 12:00:00 AM EDT eCW1 ([facility]) Outpatient [address] [facility] [id number] 09/23/2020 12:00:00 AM EDT eCW1 ([facility]) Unknown [address] [facility] [place] [address] 09/23/2020 12:00:00 AM EDT eCW1 ([facility]) Unknown [address] [facility] [place] [address] 09/10/2020 12:00:00 AM EDT eCW1 ([facility]) Outpatient Attender: De Henderson MDConsultant: ERIC Kee 07/09/2020 09:44:00 AM EDT - 07/09/2020 09:44:00 AM EDT [facility] Unknown [address] [facility] [place] [address] 06/22/2020 12:00:00 AM EDT eCW1 ([facility]) Outpatient Attender: De Henderson MD [facility] 06/17/2020 1 0:30:00 AM EDT [facility] ([facility]) Outpatient Attender: De Henderson MDConsultant: ERIC Kee 06/17/2020 10:25:00 AM EDT - 06/17/2020 10:25:00 AM EDT [facility] Outpatient [address] [facility] [place] [address] 06/08/2020 12:00:00 AM EDT eCW1 ([facility]) Outpatient [address] [facility] [place] [address] 03/09/2020 12:00:00 AM EST eCW1 ([facility]) Outpatient [address] [facility] [place] [address] 02/11/2020 12:00:00 AM EST eCW1 ([facility]) Unknown [address] [facility] [place] [address] 02/06/2020 12:00:00 AM EST eCW1 ([facility]) Unknown [address] [facility] [place] [address] 02/06/2020 12:00:00 AM EST eCW1 ([facility]) Unknown [address] [facility] [place] [address] 02/05/2020 12:00:00 AM EST eCW1 ([facility]) Inpatient Attender: RENÉE Styles MDAttender: Elaine Barber FNPAttender: CASS WEST PAConsultant: ERIC BRISENO 01/29/2020 01:57:00 PM EST - 02/04/2020 01:20:00 PM EST [facility] Patient discharged. Unknown [address] [facility] [place] [address] 01/27/2020 12:00:00 AM EST eCW1 ([facility]) Outpatient Attender: [facility] 01/26/2020 09:0 2:00 AM [facility] Inpatient Attender: CASS BORDEN 1 03/28/2019 08:38:00 AM EST - 01/29/2020 01:57:00 PM [facility] Emergency Attender: RENÉE CREWS MD 01/26/2020 08:38:00 AM [facility] - 01/26/2020 11:02:00 AM [facility] TeleMedicine Phone E/M by Brenda 21-30 Min [address] [place] [address] 01/23/2020 12:00:00 AM EST eCW1 ([facility]) Unknown [address] [facility] [place] [address] 01/23/2020 12:00:00 AM EST eCW1 ([facility]) Unknown [address] [facility] [place] [address] 01/23/2020 12:00:00 AM EST eCW1 ([facility]) Unknown [address] [facility] [place] [address] 01/23/2020 12:00:00 AM EST eCW1 ([facility]) Outpatient Attender: [facility] 01/20/2020 07:0 5:00 AM [facility] Emergency Attender: RILEY NARANJO MDConsultant: ERIC ODEN 01/20/2020 06:17:00 AM EST - 01/20/2020 09:00:00 AM [facility] Patient discharged. Unknown [address] [facility] [place] [address] 12/23/2019 12:00:00 AM EST eCW1 ([facility]) Unknown [address] [facility] [place] [address] 12/21/2019 12:00:00 AM EST eCW1 [facility]) Immunizations Vaccine Date Status Description Data Source(s) COVID-19 VACCINE Moderna 12/30/2020 12:00:00 AM EST completed [employer] Vaccine Series Complete: YESThis Data wa s Submitted to [facility] Via [employer]. pneumococcal polysaccharide PPV23 09/23/2020 07:28:00 AM EDT comple madhav eCW1 ([facility]) pneumococcal polysaccharide PPV23 09/23/2020 07:28:00 AM EDT comple madhav eCW1 ([facility]) pneumococcal polysaccharide PPV23 09/23/2020 07:28:00 AM EDT comple madhav eCW1 ([facility]) pneumococcal polysaccharide PPV23 09/23/2020 07:28:00 AM EDT comple madhav eCW1 ([facility]) pneumococcal polysaccharide PPV23 09/23/2020 07:28:00 AM EDT comple madhav eCW1 ([facility]) Moderna #2 dose COVID-19(given elsewhere) SARSCOV2 VAC 100MCG/0.5ML IM 05/04/2020 11:16:00 AM EDT completed eCW1 ([facility]) Moderna #2 dose COVID-19(given elsewhere) SARSCOV2 VAC 100MCG/0.5ML IM 05/04/2020 11:16:00 AM EDT completed eCW1 ([facility]) Moderna #2 dose COVID-19(given elsewhere) SARSCOV2 VAC 100MCG/0.5ML IM 05/04/2020 11:16:00 AM EDT completed eCW1 ([facility]) Moderna #2 dose COVID-19(given elsewhere) SARSCOV2 VAC 100MCG/0.5ML IM 05/04/2020 11:16:00 AM EDT completed eCW1 ([facility]) Moderna #2 dose COVID-19(given elsewhere) SARSCOV2 VAC 100MCG/0.5ML IM 05/04/2020 11:16:00 AM EDT completed eCW1 ([facility]) COVID-19 dose #2 given elsewhere Unspecified 05/04/2020 09:5 9:00 AM EDT completed eCW1 ([facility]) COVID-19 dose #2 given elsewhere Unspecified 05/04/2020 09:5 9:00 AM EDT completed eCW1 ([facility]) COVID-19 dose #2 given elsewhere Unspecified 05/04/2020 09:5 9:00 AM EDT completed eCW1 ([facility]) COVID-19 dose #2 given elsewhere Unspecified 05/04/2020 09:5 9:00 AM EDT completed eCW1 ([facility]) COVID-19 dose #2 given elsewhere Unspecified 05/04/2020 09:5 9:00 AM EDT completed eCW1 ([facility]) COVID-19 dose #2 given elsewhere Unspecified 05/04/2020 09:5 9:00 AM EDT completed eCW1 ([facility]) COVID-19 dose #2 given elsewhere Unspecified 05/04/2020 09:5 9:00 AM EDT completed eCW1 ([facility]) COVID-19 dose #2 given elsewhere Unspecified 05/04/2020 09:5 9:00 AM EDT completed eCW1 ([facility]) COVID-19 VACCINE Moderna 05/04/2020 12:00:00 AM EDT completed [employer] Vaccine Series Complete: YESThis Data wa s Submitted to [facility] Via [employer]. COVID-19 VACCINE, MRNA-1273, LNP-S (MODERNA)/PF 05/04/2020 1 2:00:00 AM EDT completed [facility] Moderna #1 dose COVID-19(given elsewhere) SARSCOV2 VAC 100MCG/0.5ML IM 04/03/2020 11:16:00 AM EST completed eCW1 ([facility]) Moderna #1 dose COVID-19(given elsewhere) SARSCOV2 VAC 100MCG/0.5ML IM 04/03/2020 11:16:00 AM EST completed eCW1 ([facility]) Moderna #1 dose COVID-19(given elsewhere) SARSCOV2 VAC 100MCG/0.5ML IM 04/03/2020 11:16:00 AM EST completed eCW1 ([facility]) Moderna #1 dose COVID-19(given elsewhere) SARSCOV2 VAC 100MCG/0.5ML IM 04/03/2020 11:16:00 AM EST completed eCW1 ([facility]) Moderna #1 dose COVID-19(given elsewhere) SARSCOV2 VAC 100MCG/0.5ML IM 04/03/2020 11:16:00 AM EST completed eCW1 ([facility]) COVID-19 dose #1 given elsewhere Unspecified 04/03/2020 09:5 8:00 AM EST completed eCW1 ([facility]) COVID-19 dose #1 given elsewhere Unspecified 04/03/2020 09:5 8:00 AM EST completed eCW1 ([facility]) COVID-19 dose #1 given elsewhere Unspecified 04/03/2020 09:5 8:00 AM EST completed eCW1 ([facility]) COVID-19 dose #1 given elsewhere Unspecified 04/03/2020 09:5 8:00 AM EST completed eCW1 ([facility]) COVID-19 dose #1 given elsewhere Unspecified 04/03/2020 09:5 8:00 AM EST completed eCW1 ([facility]) COVID-19 dose #1 given elsewhere Unspecified 04/03/2020 09:5 8:00 AM EST completed eCW1 ([facility]) COVID-19 dose #1 given elsewhere Unspecified 04/03/2020 09:5 8:00 AM EST completed eCW1 ([facility]) COVID-19 dose #1 given elsewhere Unspecified 04/03/2020 09:5 8:00 AM EST completed eCW1 ([facility]) COVID-19 VACCINE Moderna 04/03/2020 12:00:00 AM EST completed [facility] Vaccine Series Complete: NOThis Data was Submitted to [facility] Via [facility] [employer]. COVID-19 VACCINE, MRNA-1273, LNP-S (MODERNA)/PF 04/03/2020 1 2:00:00 AM EST completed [facility] VARICELLA-ZOSTER VIRUS GLYCOPROTEIN E,REC/AS01B ADJUVA NT/PF 12/27/2019 12:00:00 AM EST completed [facility] FLU VACCINE QUADRIV (4 YEARS AND OLDER)CELL D ERIVED 11/15/2019 12:00:00 AM EDT completed [facility] Medications Medication Brand Name Start Date Product Form Dose Route Admi nistrative Instructions Pharmacy Instructions Status Indications Reaction Description Data Source(s) 100 mcg/0.5 mL 12/30/2020 12:00:00 AM EST suspension 0 INJECT DIRECTED PER STANDING ORDER INJECT DIRECTED PER STANDING ORDER SOLD: 12/30/2020 [facility] SUPREP BOWEL PREP KIT 17.5-3.13-1.6 gram SODIUM, POTASSIUM,M AG SULFATES 12/27/2020 12:00:00 AM EST recon soln 354 TAKE PER DOCTOR'S BOWEL PREP INSTRUCTIONS TAKE PER DOCTOR'S BOWEL PREP INSTRUCTIONS SOLD: 12/30/2020 [facility] 25 mg 12/09/2020 12:00:00 AM EDT tablet 90 TAKE ONE TABLET BY MOUTH AT BEDTIME TAKE ONE TABLET BY MOUTH AT BEDTIME SOLD: 12/11/2020 [facility] 50 mg 12/09/2020 12:00:00 AM EDT tablet 90 TAKE ONE TABLET BY MOUTH EVERY DAY TAKE ONE TABLET BY MOUTH EVERY DAY SOLD: 12/11/2020 [facility] 20 mg 12/09/2020 12:00:00 AM EDT tablet 90 TAKE ONE TABLET BY MOUTH EVERY DAY TAKE ONE TABLET BY MOUTH EVERY DAY SOLD: 12/11/2020 [facility] Hydrochlorothiazide 12.5 MG Oral Tablet HYDROCHLOROTHIAZIDE 12/09/2020 12:00:00 AM EDT tablet 90 TAKE ONE TABLET BY MOUTH BENIGNO RY MORNING TAKE ONE TABLET BY MOUTH EVERY MORNING SOLD: 12/11/2020 [facility] 240 mcg/0.7 mL 11/11/2020 12:00:00 AM EDT syringe 0 INJECT BY [facility] INJECT BY [facility] SOLD: 11/11/2020 [facility] atorvastatin 20 MG Oral Tablet ATORVASTATIN CALCIUM 11/06/2020 1 2:00:00 AM EDT tablet 90 TAKE ONE TABLET BY MOUTH EVERY D AY TAKE ONE TABLET BY MOUTH EVERY DAY SOLD: 11/09/2020 [facility] 25 mg 09/12/2020 12:00:00 AM EDT tablet 90 TAKE ONE TABLET BY MOUTH AT BEDTIME TAKE ONE TABLET BY MOUTH AT BEDTIME SOLD: 09/13/2020 [facility] atorvastatin 20 MG Oral Tablet ATORVASTATIN CALCIUM 08/05/2020 1 2:00:00 AM EDT tablet 90 TAKE ONE TABLET BY MOUTH EVERY D AY TAKE ONE TABLET BY MOUTH EVERY DAY SOLD: 08/09/2020 [facility] Citalopram 10 MG Oral Tablet Citalopram Hydrobromide 06/17/2020 12:00:00 AM EDT ORAL active [facility] ( [facility]) Butenafine hydrochloride 10 MG/ML Topical Cream Lotrimin Ult ra 06/17/2020 12:00:00 AM EDT completed [facility] ([facility]) Hydrochlorothiazide 12.5 MG Oral Capsule Hydrochlorothiazide 06/17/2020 12:00:00 AM EDT active [facility] ([facility]) atorvastatin 20 MG Oral Tablet Atorvastatin Calcium 06/17/2020 1 2:00:00 AM EDT ORAL active [facility] ( [facility]) 50 mg 06/08/2020 12:00:00 AM EDT tablet 90 TAKE ONE TABLET BY MOUTH EVERY DAY TAKE ONE TABLET BY MOUTH EVERY DAY SOLD: 09/13/2020 [facility] Amitriptyline Hydrochloride 25 MG Oral Tablet Amitript yline HCl 25 MG Amitriptyline HCl 25 MG 06/08/2020 12:00:00 AM EDT 1.0 {tablet_at_b edtime} active Amitriptyline HCl 25 MG e CW1 ([facility]) 20 mg 06/08/2020 12:00:00 AM EDT tablet 90 TAKE ONE TABLET BY MOUTH EVERY DAY TAKE ONE TABLET BY MOUTH EVERY DAY SOLD: 06/10/2020 [facility] Hydrochlorothiazide 12.5 MG Oral Tablet HYDROCHLOROTHIAZIDE 06/08/2020 12:00:00 AM EDT tablet 90 TAKE ONE TABLET BY MOUTH BENIGNO RY MORNING TAKE ONE TABLET BY MOUTH EVERY MORNING SOLD: 09/13/2020 [facility] 50 mg 06/08/2020 12:00:00 AM EDT tablet 90 TAKE ONE TABLET BY MOUTH EVERY DAY TAKE ONE TABLET BY MOUTH EVERY DAY SOLD: 06/10/2020 [facility] Amitriptyline Hydrochloride 25 MG Oral Tablet AMITRIPTYLINE HCL 06/08/2020 12:00:00 AM EDT tablet 90 TAKE ONE TABLET BY MOUTH AT BEDTIME TAKE ONE TABLET BY MOUTH AT BEDTIME SOLD: 06/10/2020 [facility] 20 mg 06/08/2020 12:00:00 AM EDT tablet 90 TAKE ONE TABLET BY MOUTH EVERY DAY TAKE ONE TABLET BY MOUTH EVERY DAY SOLD: 09/13/2020 [facility] Hydrochlorothiazide 12.5 MG Oral Tablet HYDROCHLOROTHIAZIDE 06/08/2020 12:00:00 AM EDT tablet 90 TAKE ONE TABLET BY MOUTH BENIGNO RY MORNING TAKE ONE TABLET BY MOUTH EVERY MORNING SOLD: 06/10/2020 [facility] Amitriptyline Hydrochloride 25 MG Oral Tablet Amitript yline HCl 25 MG Amitriptyline HCl 25 MG 06/08/2020 12:00:00 AM EDT 1.0 {tablet_at_b edtime} active Amitriptyline HCl 25 MG e CW1 ([facility]) Amitriptyline Hydrochloride 25 MG Oral Tablet Amitript yline HCl 25 MG Amitriptyline HCl 25 MG 06/08/2020 12:00:00 AM EDT 1.0 {tablet_at_b edtime} active eCW1 ([facility]) atorvastatin 20 MG Oral Tablet ATORVASTATIN CALCIUM 01/28/2020 1 2:00:00 AM EST tablet 90 TAKE ONE TABLET BY MOUTH EVERY D AY TAKE ONE TABLET BY MOUTH EVERY DAY SOLD: 02/06/2020 [facility] atorvastatin 20 MG Oral Tablet ATORVASTATIN CALCIUM 01/28/2020 1 2:00:00 AM EST tablet 90 TAKE ONE TABLET BY MOUTH EVERY D AY TAKE ONE TABLET BY MOUTH EVERY DAY SOLD: 05/09/2020 [facility] 250 mg 01/21/2020 12:00:00 AM EST capsule 40 TAKE ONE CAPSULE BY MOUTH FOUR TIMES A DAY FOR 10 DAYS TAKE ONE CAPSULE BY MOUTH FOUR TIMES A DAY FOR 10 DAYS SOLD: 01/21/2020 [facility] benzonatate 100 MG Oral Capsule BENZONATATE 01/20/2020 12:00:00 AM EST capsule 15 TAKE ONE CAPSULE BY MOUTH THREE TIMES DA MONSE TAKE ONE CAPSULE BY MOUTH THREE TIMES DAILY SOLD: 01/20/2020 [facility] Citalopram 20 MG Oral Tablet CITALOPRAM HYDROBROMIDE 12/23/2019 12:00:00 AM EST tablet 90 TAKE ONE TABLET BY MOUTH EVERY D AY TAKE ONE TABLET BY MOUTH EVERY DAY SOLD: 03/27/2020 [facility] Citalopram 20 MG Oral Tablet CITALOPRAM HYDROBROMIDE 12/23/2019 12:00:00 AM EST tablet 90 TAKE ONE TABLET BY MOUTH EVERY D AY TAKE ONE TABLET BY MOUTH EVERY DAY SOLD: 12/27/2019 [facility] 50 mg 06/14/2019 12:00:00 AM EDT tablet 90 TAKE ONE TABLET BY MOUTH EVERY DAY TAKE ONE TABLET BY MOUTH EVERY DAY SOLD: 12/18/2019 [facility] 50 mg 06/14/2019 12:00:00 AM EDT tablet 90 TAKE ONE TABLET BY MOUTH EVERY DAY TAKE ONE TABLET BY MOUTH EVERY DAY SOLD: 03/19/2020 [facility] Hydrochlorothiazide 12.5 MG Oral Tablet HYDROCHLOROTHIAZIDE 06/10/2019 12:00:00 AM EDT tablet 90 TAKE ONE TABLET BY MOUTH BENIGNO RY DAY IN THE MORNING TAKE ONE TABLET BY MOUTH EVERY DAY IN THE MORNING SOLD: 12/18/2019 [facility] Hydrochlorothiazide 12.5 MG Oral Tablet HYDROCHLOROTHIAZIDE 06/10/2019 12:00:00 AM EDT tablet 90 TAKE ONE TABLET BY MOUTH BENIGNO RY DAY IN THE MORNING TAKE ONE TABLET BY MOUTH EVERY DAY IN THE MORNING SOLD: 03/19/2020 [facility] Insurance Providers Payer name Policy type / Coverage type Policy ID Covered green party ID Covered green party's relationship to lema Policy Lema Plan Information [employer] [id number] [facility] [id number] [facility] [id number] [facility] [id number] [employer] [id number] [facility] [id number] [employer] [id number] [facility] [id number] [facility] Maintenance Organization ([facility]) [id number] Family Dependent [id number] [facility] Maintenance Organization (O) [id number] Family Dependent [id number] [facility] (O) [id number] Family Dependent [id number] [facility] (O) [id number] Family Dependent [id number] [facility] ([facility]) 8 [id number] Family Dependent [id number] [facility] ([facility]) 8 [id number] Family Dependent [id number] MEDICARE PART A -O [id number] 18 [id number] MEDICARE PART A -I/P [id number] 18 [id number] [place] [employer] -I/P [id number] 18 [id number] [facility]UE [facility] -O/P [id number] 18 [id number] MEDICARE PART A -O/P [id number] 18 [id number] [facility] [id number] 2 [id number] ANSI-Commercial [id number] ANSI-Commercial [id number] ANSI-Commercial [id number] [facility] ([facility]) O [id number] 8 [id number] [facility] [id number] 2 [id number] [employer] BL[employer]IELD -O/P [id number] ANSI-Commercial [id number] ANSI-Commercial [id number] ANSI-Commercial [id number] [employer] [id number] [employer] [id number] HU2 [id number] [employer] [id number] HU2 [id number] [facility] [id number] HU2 [id number] [facility] [id number] SP [id number] [employer] [id number] SP [id number] MEDICARE [id number] SP [id number] [facility] [id number] SP [id number] [facility] EMPIRE PLAN [id number] 18 [id number] MEDICARE PART A [facility] [id number] 18 [id number] [employer] [id number] SP [id number] MEDICARE PART B -PHYSICIAN [id number] 18 [id number] MEDICARE PART A -I [id number] 18 [id number] MEDICARE -SWING BED [id number] 18 [id number] [employer] [id number] Problems, Conditions, and Diagnoses Code Display Name Description Problem Type Effective Dates Data Source(s) M7662 Achilles tendinitis, left leg Achilles tendinitis, lef t leg Diagnosis 10/26/2020 09:36:00 AM EDT [facility] M216X9 Other acquired deformities of unspecifie d foot Other acquired deformities of unspecified foot Diagnosis 10/26/2020 09:36:00 AM [facility] L600 Ingrowing nail Ingrowing nail Diagnosis 10/26/2020 09:36: 00 AM [facility] U91169 Pain in left foot Pain in left foot Diagnosis 10/26/2020 09:36:00 AM [facility] R99 Ill-defined and unknown cause of mortali ty Ill-defined and unknown cause of mortality Diagnosis 07/09/2020 09:44:00 AM [facility] L723 Sebaceous cyst Sebaceous cyst Diagnosis 06/17/2020 10:25: 00 AM [facility] Z6842 Body mass index [BMI] 45.0-49.9, adult B irineo mass index [BMI] 45.0-49.9, adult Diagnosis 01/29/2020 01:57:00 PM [facility] E669 Obesity, unspecified Obesity, unspecified Diagnosis 01/29/2020 01:57:00 PM [facility] R739 Hyperglycemia, unspecified Hyperglycemia, unspecified Diagnosis 01/29/2020 01:57:00 PM [facility] B9729 Other coronavirus as the cause of diseas es classified elsewhere Other coronavirus as the cause of diseases classified elsewhere Diagnosis 01/29/2020 01:57:00 PM [facility] J1289 Other viral pneumonia Other viral pneumonia Diagnosis 01/29/2020 01:57:00 PM [facility] R531 Weakness Weakness Diagnosis 01/26/2020 08:38:00 AM [facility] E785 Hyperlipidemia, unspecified Hyperlipidemia, unspecifie d Diagnosis 01/26/2020 08:38:00 AM [facility] I10 Essential (primary) hypertension Essential (primary) h ypertension Diagnosis 01/26/2020 08:38:00 AM [facility] R7881 Bacteremia Bacteremia Diagnosis 01/26/2020 08:38:00 AM [facility] U071 COVID-19 COVID-19 Diagnosis 01/26/2020 08:38:00 AM [facility] J181 Lobar pneumonia, unspecified organism Lo bar pneumonia, unspecified organism Diagnosis 01/26/2020 08:38:00 AM [facility] G22795 Personal history of nicotine dependence Personal history of nicotine dependence Diagnosis 01/20/2020 06:17:00 AM [facility] E7800 Pure hypercholesterolemia, unspecified P ure hypercholesterolemia, unspecified Diagnosis 01/20/2020 06:17:00 AM [facility] R05 Cough Cough Diagnosis 01/20/2020 06:17:00 AM [facility] M21.6X9 Pronation Pronation Problem 10/26/2020 12:00:00 AM ED T [facility] ([facility]) L60.0 Ingrowing nail Ingrowing nail Problem 10/26/2020 12:00: 00 AM EDT [facility] ([facility]) M79.672 Pain in limb Pain in limb Problem 10/26/2020 12:00:00 A M EDT [facility] ([facility]) [id number] Essential hypertension Essential hypertension Problem 10/21/2020 12:00:00 AM EDT [facility] ([facility] ) L72.3 Epidermoid cyst Epidermoid cyst Problem 06/17/2020 12:0 0:00 AM EDT [facility] ([facility]) [id number] Pure hypercholesterolemia Pure hypercholesterolemia Pr oblem 06/17/2020 12:00:00 AM EDT [facility] ([facility]) [id number] Essential hypertension Essential hypertension Problem 06/17/2020 12:00:00 AM EDT [facility] ([facility]) G47.00 [id number] Insomnia, unspecified type Problem 12:00:00 AM EST eCW1 ([facility]) Surgeries/Procedures Procedure Description Date Indications Data Source(s) Excise Nail Bed & Matrix 10/26/2020 12:00:00 AM EDT [facility] ([facility]) Strapping Ankle/foot 10/26/2020 12:00:00 AM EDT [facility] ([facility]) OFFICE OUTPATIENT NEW 30 MINUTES 10/26/2020 12:00:00 A M EDT [facility] ([facility]) OFFICE OUTPATIENT NEW 30 MINUTES 10/21/2020 12:00:00 A M EDT [facility] ([facility] ) PNEUMOCOCCAL POLYSAC VACCINE 23-V 2 />YR SUBQ/IM 09/23 12:00:00 AM EDT eCW1 ([facility]) OFFICE OUTPATIENT NEW 20 MINUTES 07/09/2020 12:00:00 A M EDT [facility] ([facility]) OFFICE OUTPATIENT NEW 20 MINUTES 06/17/2020 12:00:00 A M EDT [facility] ([facility]) Introduction of Electrolytic and Water B alance Substance into Peripheral Vein, Percutaneous Approach Introduction of Electrolytic and Water B alance Substance into Peripheral Vein, Percutaneous Approach 01/26/2020 12:00:00 AM [facility] Introduction of Anesthetic Agent into Re spiratory Tract, Via Natural or Artificial Opening Introduction of Anesthetic Agent into Re spiratory Tract, Via Natural or Artificial Openin 01/26/2020 12:00:00 AM [facility] Introduction of Other Anti-infective int o Peripheral Vein, Percutaneous Approach Introduction of Other Anti-infective int o Peripheral Vein, Percutaneous Approach 01/26/2020 12:00:00 AM [facility] Results ID Date Data Source [id number] 01/02/2021 09:35:00 AM EST [facility] Name Value Range Interpretation Code Description Data Makayla rce(s) Supporting Document(s) SARS-CoV-2 (COVID-19) RNA [Presence] in Respiratory specimen by ALEJANDRA with probe detection Not Detected [facility] This lab was ordered by [facility] and reported by [email or web address]. ID Date Data Source [id number] 02/03/2020 06:54:00 AM [facility] Name Value Range Interpretation Code Description Data Makayla rce(s) Supporting Document(s) CBC W/AUTOMATED DIFF [facility] COMPLETE BLOOD COUNT Leukocytes [#/volume] in Blood by Automated count 7.3 10^3/uL 4.2 - 1 1.0 [facility] Erythrocytes [#/volume] in Blood by Automated count 4.31 10^6/uL 4. 20 - 5.40 [facility] Hemoglobin [Mass/volume] in Blood 12.7 g/dL 12.0 - 16.0 [facility] Hematocrit [Volume Fraction] of Blood by Automated count 38.1 % 3 7.0 - 47.0 [facility] Erythrocyte mean corpuscular volume [Entitic volume] by Auto mated count 88.4 fL 81.0 - 101 [facility] Erythrocyte mean corpuscular hemoglobin [Entitic mass] by Automated count 29.5 pg 27.0 - 34.0 [facility] Erythrocyte mean corpuscular hemoglobin concentration [Mass/volume] by Automated count 33.3 g/dL 31.0 - 36.0 [facility] Erythrocyte distribution width [Ratio] by Automated count 13.6 % 11.5 - 14.5 [facility] Platelets [#/volume] in Blood by Automated count 239 10^3/uL 150 - 45 0 [facility] Platelet mean volume [Entitic volume] in Blood by Automated count 9.6 fL 7.4 - 10.4 [facility] Neutrophils/100 leukocytes in Blood by Automated count 60.9 % 37. 0 - 80.0 [facility] Lymphocytes/100 leukocytes in Blood by Manual count 23.6 % 25.0 - 40.0 L [facility] Monocytes/100 leukocytes in Blood by Automated count 7.4 % 3.0 - 8.0 [facility] Eosinophils/100 leukocytes in Blood by Automated count 1.5 % 0.0 - 7.0 [facility] Basophils/100 leukocytes in Blood by Automated count 0.7 % 0.0 - 2.5 [facility] %IG 5.9 % 0.0 - [facility] % 0.0 - 0.0 [facility] al Neutrophils [#/volume] in Blood by Automated count 4.44 10^3/uL 2.00 - 6.90 [facility] Lymphocytes [#/volume] in Blood by Automated count 1.72 10^3/uL 0.60 - 3.40 [facility] Monocytes [#/volume] in Blood by Automated count 0.54 10^3/uL 0.00 - 0.90 [facility] Eosinophils [#/volume] in Blood by Automated count 0.11 10^3/uL 0.00 - 0.70 [facility] Basophils [#/volume] in Blood by Automated count 0.05 10^3/uL 0.00 - 0.20 [facility] #IG 0.43 10^3/uL 0.00 - 0.10 [facility] #NRBC 0.00 10^3/uL 0.00 - 0.00 [facility] MANUAL DIFF SEE BELOW [facility] ital Segmented neutrophils/100 leukocytes in Blood by Manual count 71 % 37 - 80 [facility] %LYMPH 19 % 25 - 40 L [facility] al %MONO 9 % 3 - 8 H [facility] al %EOS 1 % 0 - 7 [facility] al RBC MORPH NOT INDICATED [facility] ID Date Data Source [id number] 02/03/2020 06:52:00 AM EST [facility] Name Value Range Interpretation Code Description Data Makayla rce(s) Supporting Document(s) COMPREHENSIVE METABOLIC PANEL [facility] COMPREHENSIVE METABOLIC PANEL Sodium [Moles/volume] in Serum or Plasma 142 mEq/L 134 - 153 [facility] Potassium [Moles/volume] in Serum or Plasma 3.7 mEq/L 3.6 - 5.0 [facility] Chloride [Moles/volume] in Serum or Plasma 104 mEq/L 98 - 107 [facility] Carbon dioxide, total [Moles/volume] in Serum or Plasma 32 MEQ/L 22 - 30 H [facility] Glucose [Mass/volume] in Serum or Plasma 97 MG/DL 65 - 110 [facility] BUN 13 MG/DL 7 - 21 [facility] al Creatinine [Mass/volume] in Serum or Plasma 0.7 MG/DL 0.7 - 1.5 [facility] BUN/CREAT 19 8 - 27 [facility] al Protein [Mass/volume] in Serum or Plasma 5.2 G/DL 6.3 - 8.2 L [facility] Albumin [Mass/volume] in Serum or Plasma 3.2 G/DL 3.9 - 5.0 L [facility] Globulin [Mass/volume] in Serum by calculation 2.0 GM/DL 2.4 - 3.2 L [facility] A/G RATIO 1.6 0.8 - 2.0 [facility] al Calcium [Mass/volume] in Serum or Plasma 8.9 MG/DL 8.4 - 10.2 [facility] Bilirubin.total [Mass/volume] in Serum or Plasma 0.8 MG/DL 0.2 - 1.3 [facility] Alkaline phosphatase [Enzymatic activity/volume] in Serum or Plasma 36 U/L 38 - 126 L [facility] Aspartate aminotransferase [Enzymatic activity/volume] in Serum or Plasma 36 U/L 5 - 40 [facility] Alanine aminotransferase [Enzymatic activity/volume] in Seru m or Plasma 35 U/L 7 - 56 [facility] Anion gap 3 in Serum or Plasma 6.0 mmol/L 8.0 - 16.0 L [facility] AGE 64 yrs [facility] al NON-AA GFR >60 mL/min [facility] ital AFR AMER GFR >60 [facility] Male GFR In terprentation 20-49 yrs >60 mL/min Normal 50-59 yrs >56 mL/min Normal 60-69 yrs >49 mL/min Normal 70-79yrs >42 mL/min Normal 80 and above >35 mL/min Normal Female GFR Interpretation 20-39 yrs >60 mL/min Normal 40-49 yrs >58 mL/min Normal 50-59 yrs >51 mL/min Normal 60-69 yrs >45 mL/min Normal 70-79 yrs >39 mL/min Normal 80 and above >32 mL/min Normal ID Date Data Source [id number] 02/02/2020 09:40:00 AM EST [facility] Name Value Range Interpretation Code Description Data Makayla rce(s) Supporting Document(s) CBC W/AUTOMATED DIFF [facility] COMPLETE BLOOD COUNT Leukocytes [#/volume] in Blood by Automated count 8.5 10^3/uL 4.2 - 1 1.0 [facility] Erythrocytes [#/volume] in Blood by Automated count 4.38 10^6/uL 4. 20 - 5.40 [facility] Hemoglobin [Mass/volume] in Blood 13.0 g/dL 12.0 - 16.0 [facility] Hematocrit [Volume Fraction] of Blood by Automated count 38.5 % 3 7.0 - 47.0 [facility] Erythrocyte mean corpuscular volume [Entitic volume] by Auto mated count 87.9 fL 81.0 - 101 [facility] Erythrocyte mean corpuscular hemoglobin [Entitic mass] by Automated count 29.7 pg 27.0 - 34.0 [facility] Erythrocyte mean corpuscular hemoglobin concentration [Mass/volume] by Automated count 33.8 g/dL 31.0 - 36.0 [facility] Erythrocyte distribution width [Ratio] by Automated count 13.7 % 11.5 - 14.5 [facility] Platelets [#/volume] in Blood by Automated count 268 10^3/uL 150 - 45 0 [facility] Platelet mean volume [Entitic volume] in Blood by Automated count 9.6 fL 7.4 - 10.4 [facility] Neutrophils/100 leukocytes in Blood by Automated count 63.3 % 37. 0 - 80.0 [facility] Lymphocytes/100 leukocytes in Blood by Manual count 22.0 % 25.0 - 40.0 L [facility] Monocytes/100 leukocytes in Blood by Automated count 5.6 % 3.0 - 8.0 [facility] Eosinophils/100 leukocytes in Blood by Automated count 1.2 % 0.0 - 7.0 [facility] Basophils/100 leukocytes in Blood by Automated count 0.9 % 0.0 - 2.5 [facility] %IG 7.0 % 0.0 - 0.0 H [facility] al %NRBC 0.0 % 0.0 - 0.0 [facility] al Neutrophils [#/volume] in Blood by Automated count 5.36 10^3/uL 2.00 - 6.90 [facility] Lymphocytes [#/volume] in Blood by Automated count 1.86 10^3/uL 0.60 - 3.40 [facility] Monocytes [#/volume] in Blood by Automated count 0.47 10^3/uL 0.00 - 0.90 [facility] Eosinophils [#/volume] in Blood by Automated count 0.10 10^3/uL 0.00 - 0.70 [facility] Basophils [#/volume] in Blood by Automated count 0.08 10^3/uL 0.00 - 0.20 [facility] #IG 0.59 10^3/uL 0.00 - 0.10 [facility] #NRBC 0.00 10^3/uL 0.00 - 0.00 [facility] ospital MANUAL DIFF NOT INDICATED [facility] RBC MORPH NOT INDICATED [facility] spital ID Date Data Source [id number] 02/02/2020 09:00:00 AM EST [facility] Name Value Range Interpretation Code Description Data Makayla rce(s) Supporting Document(s) COMPREHENSIVE METABOLIC PANEL [facility] COMPREHENSIVE METABOLIC PANEL Sodium [Moles/volume] in Serum or Plasma 141 mEq/L 134 - 153 [facility] Potassium [Moles/volume] in Serum or Plasma 3.6 mEq/L 3.6 - 5.0 [facility] Chloride [Moles/volume] in Serum or Plasma 102 mEq/L 98 - 107 [facility] Carbon dioxide, total [Moles/volume] in Serum or Plasma 31 MEQ/L 22 - 30 H [facility] Glucose [Mass/volume] in Serum or Plasma 89 MG/DL 65 - 110 [facility] BUN 14 MG/DL 7 - 21 [facility] Creatinine [Mass/volume] in Serum or Plasma 0.8 MG/DL 0.7 - 1.5 [facility] BUN/CREAT 18 8 - 27 [facility] Protein [Mass/volume] in Serum or Plasma 5.4 G/DL 6.3 - 8.2 L [facility] Albumin [Mass/volume] in Serum or Plasma 2.9 G/DL 3.9 - 5.0 L [facility] Globulin [Mass/volume] in Serum by calculation 2.5 GM/DL 2.4 - 3.2 [facility] A/G RATIO 1.2 0.8 - 2.0 [facility] Calcium [Mass/volume] in Serum or Plasma 8.5 MG/DL 8.4 - 10.2 [facility] Bilirubin.total [Mass/volume] in Serum or Plasma 0.8 MG/DL 0.2 - 1.3 [facility] Alkaline phosphatase [Enzymatic activity/volume] in Serum or Plasma 39 U/L 38 - 126 [facility] Aspartate aminotransferase [Enzymatic activity/volume] in Serum or Plasma 45 U/L 5 - 40 H [facility] Alanine aminotransferase [Enzymatic activity/volume] in Seru m or Plasma 42 U/L 7 - 56 [facility] Anion gap 3 in Serum or Plasma 8.0 mmol/L 8.0 - 16.0 [facility] AGE 64 yrs [facility] NON-AA GFR >60 mL/min [facility] AFR AMER GFR >60 [facility] Male GFR In terprentation 20-49 yrs >60 mL/min Normal 50-59 yrs >56 mL/min Normal 60-69 yrs >49 mL/min Normal 70-79yrs >42 mL/min Normal 80 and above >35 mL/min Normal Female GFR Interpretation 20-39 yrs >60 mL/min Normal 40-49 yrs >58 mL/min Normal 50-59 yrs >51 mL/min Normal 60-69 yrs >45 mL/min Normal 70-79 yrs >39 mL/min Normal 80 and above >32 mL/min Normal ID Date Data Source [id number] 02/01/2020 08:11:00 AM EST [facility] Name Value Range Interpretation Code Description Data Makayla rce(s) Supporting Document(s) SARS coronavirus 2 RNA [facility] This lab was ordered by [facility] and reported by [facility]. ID Date Data Source [id number] 02/02/2020 02:15:00 PM EST [facility] Name Value Range Interpretation Code Description Data Makayla rce(s) Supporting Document(s) SARS-CoV-2, ALEJANDRA Not Detected Not Detected [facility] This nucleic acid amplification test was developed and its performancecharacteristics determined by [employer]. Nucleic acidamplification tests include PCR and TMA. This test has not been FDAcleared or approved. This test has been authorized by FDA under anEmergency Use Authorization (EUA). This test is only authorized forthe duration of time the declaration that circumstances existjustifying the authorization of the emergency use of in vitrodiagnostic tests for detection of SARS-CoV-2 virus and/or diagnosisof COVID-19 infection under section 564(b)(1) of the Act, 21 U.S.C.360bbb-3(b) (1), unless the authorization is terminated or revokedsooner.When diagnostic testing is negative, the possibility of a falsenegative result should be considered in the context of a patient'srecent exposures and the presence of clinical signs and symptomsconsistent with COVID- 19. An individual without symptoms of COVID-19and who is not shedding SARS-CoV-2 virus would expect to have anegative (not detected) result in this assay. ID Date Data Source [id number] 01/31/2020 07:53:00 AM EST [facility] Name Value Range Interpretation Code Description Data Makayla rce(s) Supporting Document(s) CBC W/AUTOMATED DIFF [facility] COMPLETE BLOOD COUNT Leukocytes [#/volume] in Blood by Automated count 12.1 10^3/uL 4.2 - 11.0 H [facility] Erythrocytes [#/volume] in Blood by Automated count 4.34 10^6/uL 4. 20 - 5.40 [facility] Hemoglobin [Mass/volume] in Blood 12.8 g/dL 12.0 - 16.0 [facility] Hematocrit [Volume Fraction] of Blood by Automated count 37.6 % 3 7.0 - 47.0 [facility] Erythrocyte mean corpuscular volume [Entitic volume] by Auto mated count 86.6 fL 81.0 - 101 [facility] Erythrocyte mean corpuscular hemoglobin [Entitic mass] by Automated count 29.5 pg 27.0 - 34.0 [facility] Erythrocyte mean corpuscular hemoglobin concentration [Mass/volume] by Automated count 34.0 g/dL 31.0 - 36.0 [facility] Erythrocyte distribution width [Ratio] by Automated count 13.6 % 11.5 - 14.5 [facility] Platelets [#/volume] in Blood by Automated count 272 10^3/uL 150 - 45 0 [facility] Platelet mean volume [Entitic volume] in Blood by Automated count 9.8 fL 7.4 - 10.4 [facility] Neutrophils/100 leukocytes in Blood by Automated count 66.9 % 37. 0 - 80.0 [facility] Lymphocytes/100 leukocytes in Blood by Manual count 17.1 % 25.0 - 40.0 L [facility] Monocytes/100 leukocytes in Blood by Automated count 6.2 % 3.0 - 8.0 [facility] Eosinophils/100 leukocytes in Blood by Automated count 0.0 % 0.0 - 7.0 [facility] Basophils/100 leukocytes in Blood by Automated count 1.1 % 0.0 - 2.5 [facility] %IG 8.7 % 0.0 - 0.0 H [facility] %NRBC 0.0 % 0.0 - 0.0 [facility] al Neutrophils [#/volume] in Blood by Automated count 8.10 10^3/uL 2.00 - 6.90 H [facility] Lymphocytes [#/volume] in Blood by Automated count 2.07 10^3/uL 0.60 - 3.40 [facility] Monocytes [#/volume] in Blood by Automated count 0.75 10^3/uL 0.00 - 0.90 [facility] Eosinophils [#/volume] in Blood by Automated count 0.00 10^3/uL 0.00 - 0.70 [facility] Basophils [#/volume] in Blood by Automated count 0.13 10^3/uL 0.00 - 0.20 [facility] #IG 1.05 10^3/uL 0.00 - 0.10 H [facility] #NRBC 0.00 10^3/uL 0.00 - 0.00 [facility] MANUAL DIFF NOT INDICATED [facility] RBC [facility]ORPH [facility] [Presence] in Blood by Light microscopy 1+ PRIYA L: NONE SEEN A [facility] { SICKLE CELL (NORMAL: NONE SEEN ) Platelet adequacy [Presence] in Blood by Light microscopy NORMAL NORMAL: NORMAL [facility] COMMENT: ID Date Data Source [id number] 01/31/2020 07:43:00 AM EST [facility] Name Value Range Interpretation Code Description Data Makayla rce(s) Supporting Document(s) COMPREHENSIVE METABOLIC PANEL [facility] COMPREHENSIVE METABOLIC PANEL Sodium [Moles/volume] in Serum or Plasma 138 mEq/L 134 - 153 [facility] Potassium [Moles/volume] in Serum or Plasma 3.6 mEq/L 3.6 - 5.0 [facility] Chloride [Moles/volume] in Serum or Plasma 103 mEq/L 98 - 107 [facility] Carbon dioxide, total [Moles/volume] in Serum or Plasma 26 MEQ/L 22 - 30 [facility] Glucose [Mass/volume] in Serum or Plasma 91 MG/DL 65 - 110 [facility] BUN 21 MG/DL 7 - 21 [facility] Creat[facility] [Mass/volume] in Serum or Plasma 0.7 MG/DL 0.7 - 1.5 [facility] BUN/CREAT 30 8 - 27 [facility] Protein [Mass/volume] in Serum or Plasma 5.2 G/DL 6.3 - 8.2 L [facility] Albumin [Mass/volume] in Serum or Plasma 3.2 G/DL 3.9 - 5.0 L [facility] Globulin [Mass/volume] in Serum by calculation 2.0 GM/DL 2.4 - 3.2 L [facility] A/G RATIO 1.6 0.8 - 2.0 [facility] Calcium [Mass/volume] in Serum or Plasma 8.4 MG/DL 8.4 - 10.2 [facility] Bilirubin.total [Mass/volume] in Serum or Plasma <0.7 MG/DL 0.2 - 1.3 [facility] Alkaline phosphatase [Enzymatic activity/volume] in Serum or Plasma 38 U/L 38 - 126 [facility] Aspartate aminotransferase [Enzymatic activity/volume] in Serum or Plasma 57 U/L 5 - 40 H [facility] Alanine aminotransferase [Enzymatic activity/volume] in Seru m or Plasma 53 U/L 7 - 56 [facility] Anion gap 3 in Serum or Plasma 9.0 mmol/L 8.0 - 16.0 [facility] AGE 64 yrs [facility] NON-AA GFR >60 mL/min [facility] AFR AMER GFR >60 [facility] Male GFR In terprentation 20-49 yrs >60 mL/min Normal 50-59 yrs >56 mL/min Normal 60-69 yrs >49 mL/min Normal 70-79yrs >42 mL/min Normal 80 and above >35 mL/min Normal Female GFR Interpretation 20-39 yrs >60 mL/min Normal 40-49 yrs >58 mL/min Normal 50-59 yrs >51 mL/min Normal 60-69 yrs >45 mL/min Normal 70-79 yrs >39 mL/min Normal 80 and above >32 mL/min Normal ID Date Data Source [id number] 01/30/2020 08:10:00 AM EST [facility] Name Value Range Interpretation Code Description Data Makayla rce(s) Supporting Document(s) CBC W/AUTOMATED DIFF [facility] COMPLETE BLOOD COUNT Leukocytes [#/volume] in Blood by Automated count 14.1 10^3/uL 4.2 - 11.0 H [facility] Erythrocytes [#/volume] in Blood by Automated count 4.18 10^6/uL 4. 20 - 5.40 L [facility] Hemoglobin [Mass/volume] in Blood 12.4 g/dL 12.0 - 16.0 [facility] Hematocrit [Volume Fraction] of Blood by Automated count 36.7 % 3 7.0 - 47.0 L [facility] Erythrocyte mean corpuscular volume [Entitic volume] by Auto mated count 87.8 fL 81.0 - 101 [facility] Erythrocyte mean corpuscular hemoglobin [Entitic mass] by Automated count 29.7 pg 27.0 - 34.0 [facility] Erythrocyte mean corpuscular hemoglobin concentration [Mass/volume] by Automated count 33.8 g/dL 31.0 - 36.0 [facility] Erythrocyte distribution width [Ratio] by Automated count 13.7 % 11.5 - 14.5 [facility] Platelets [#/volume] in Blood by Automated count 267 10^3/uL 150 - 45 0 [facility] Platelet mean volume [Entitic volume] in Blood by Automated count 10.0 fL 7.4 - 10.4 [facility] Neutrophils/100 leukocytes in Blood by Automated count 73.7 % 37. 0 - 80.0 [facility] Lymphocytes/100 leukocytes in Blood by Manual count 11.9 % 25.0 - 40.0 L [facility] Monocytes/100 leukocytes in Blood by Automated count 6.8 % 3.0 - 8.0 [facility] Eosinophils/100 leukocytes in Blood by Automated count 0.0 % 0.0 - 7.0 [facility] Basophils/100 leukocytes in Blood by Automated count 0.8 % 0.0 - 2.5 [facility] %IG 6.8 % 0.0 - 0.0 H [facility] %NRBC 0.0 % 0.0 - 0.0 [facility] al Neutrophils [#/volume] in Blood by Automated count 10.41 10^3/uL 2. 00 - 6.90 H [facility] Lymphocytes [#/volume] in Blood by Automated count 1.68 10^3/uL 0.60 - 3.40 [facility] Monocytes [#/volume] in Blood by Automated count 0.96 10^3/uL 0.00 - 0.90 H [facility] Eosinophils [#/volume] in Blood by Automated count 0.00 10^3/uL 0.00 - 0.70 [facility] Basophils [#/volume] in Blood by Automated count 0.11 10^3/uL 0.00 - 0.20 [facility] #IG 0.96 10^3/uL 0.00 - 0.10 H [facility] #NRBC 0.00 10^3/uL 0.00 - 0.00 [facility]spital MANUAL DIFF SEE BELOW [facility] Segmented neutrophils/100 leukocytes in Blood by Manual count 80 % 37 - 80 [facility] BAND 1 % 0 - 5 [facility] %LYMPH 13 % 25 - 40 L [facility] al %MONO 4 % 3 - 8 [facility] al Metamyelocytes/100 leukocytes in Blood by Manual count 2 % [facility] RBC MORPH NOT INDICATED [facility] ID Date Data Source [id number] 01/30/2020 07:38:00 AM EST [facility] Name Value Range Interpretation Code Description Data Makayla rce(s) Supporting Document(s) COMPREHENSIVE METABOLIC PANEL [facility] COMPREHENSIVE METABOLIC PANEL Sodium [Moles/volume] in Serum or Plasma 139 mEq/L 134 - 153 [facility] Potassium [Moles/volume] in Serum or Plasma 3.4 mEq/L 3.6 - 5.0 L [facility] Chloride [Moles/volume] in Serum or Plasma 104 mEq/L 98 - 107 [facility] Carbon dioxide, total [Moles/volume] in Serum or Plasma 26 MEQ/L 22 - 30 [facility] Glucose [Mass/volume] in Serum or Plasma 113 MG/DL 65 - 110 H [facility] BUN 19 MG/DL 7 - 21 [facility] al Creatinine [Mass/volume] in Serum or Plasma 0.7 MG/DL 0.7 - 1.5 [facility] BUN/CREAT 27 8 - 27 [facility] al Protein [Mass/volume] in Serum or Plasma 5.1 G/DL 6.3 - 8.2 L [facility] Albumin [Mass/volume] in Serum or Plasma 3.2 G/DL 3.9 - 5.0 L [facility] Globulin [Mass/volume] in Serum by calculation 1.9 GM/DL 2.4 - 3.2 L [facility] A/G RATIO 1.7 0.8 - 2.0 [facility] Calcium [Mass/volume] in Serum or Plasma 8.0 MG/DL 8.4 - 10.2 L [facility] Bilirubin.total [Mass/volume] in Serum or Plasma <0.7 MG/DL 0.2 - 1.3 [facility] Alkaline phosphatase [Enzymatic activity/volume] in Serum or Plasma 40 U/L 38 - 126 [facility] Aspartate aminotransferase [Enzymatic activity/volume] in Serum or Plasma 64 U/L 5 - 40 H [facility] Alanine aminotransferase [Enzymatic activity/volume] in Seru m or Plasma 49 U/L 7 - 56 [facility] Anion gap 3 in Serum or Plasma 9.0 mmol/L 8.0 - 16.0 [facility] AGE 64 yrs [facility] NON-AA GFR >60 mL/min [facility] AFR AMER GFR >60 [facility] Male GFR In terprentation 20-49 yrs >60 mL/min Normal 50-59 yrs >56 mL/min Normal 60-69 yrs >49 mL/min Normal 70-79yrs >42 mL/min Normal 80 and above >35 mL/min Normal Female GFR Interpretation 20-39 yrs >60 mL/min Normal 40-49 yrs >58 mL/min Normal 50-59 yrs >51 mL/min Normal 60-69 yrs >45 mL/min Normal 70-79 yrs >39 mL/min Normal 80 and above >32 mL/min Normal ID Date Data Source [id number] 01/30/2020 01:28:00 AM [facility] Name Value Range Interpretation Code Description Data Makayla rce(s) Supporting Document(s) Vancomycin [Mass/volume] in Serum or Plasma --trough 12.0 ug/mL 10.0 - 15.0 [facility] TROUG H First trough is drawn 30 minutes prior to fourth dose. If patient is not hemodynamically stable, a trough is obtained as deemed medically necessary. If patient is hemodynamically stable, a trough should be drawn once a week. The trough is drawn 30 minutes prior to the next dose. Mild Infections Trough 10-15 mg/L Severe Infections Trough 15-20 mg/L [facility] Infections Trough 20-25 mg/L *Severe Infections - Endocarditis, Osteomyelitis, Hospital Acquired Pneumonia, Sepsis ID Date Data Source [id number] 01/29/2020 08:18:00 AM [facility] Name Value Range Interpretation Code Description Data Makayla rce(s) Supporting Document(s) COMPREHENSIVE METABOLIC PANEL [facility] COMPREHENSIVE METABOLIC PANEL Sodium [Moles/volume] in Serum or Plasma 139 mEq/L 134 - 153 [facility] Potassium [Moles/volume] in Serum or Plasma 3.7 mEq/L 3.6 - 5.0 [facility] Chloride [Moles/volume] in Serum or Plasma 105 mEq/L 98 - 107 [facility] Carbon dioxide, total [Moles/volume] in Serum or Plasma 26 MEQ/L 22 - 30 [facility] Glucose [Mass/volume] in Serum or Plasma 136 MG/DL 65 - 110 H [facility] BUN 16 MG/DL 7 - 21 [facility] Creatinine [Mass/volume] in Serum or Plasma 0.6 MG/DL 0.7 - 1.5 L [facility] BUN/CREAT 27 8 - 27 [facility] Protein [Mass/volume] in Serum or Plasma 5.2 G/DL 6.3 - 8.2 L [facility] Albumin [Mass/volume] in Serum or Plasma 3.3 G/DL 3.9 - 5.0 L [facility] Globulin [Mass/volume] in Serum by calculation 1.9 GM/DL 2.4 - 3.2 L [facility] A/G RATIO 1.7 0.8 - 2.0 [facility] Calcium [Mass/volume] in Serum or Plasma 8.0 MG/DL 8.4 - 10.2 L [facility] Bilirubin.total [Mass/volume] in Serum or Plasma <0.7 MG/DL 0.2 - 1.3 [facility] Alkaline phosphatase [Enzymatic activity/volume] in Serum or Plasma 38 U/L 38 - 126 [facility] Aspartate aminotransferase [Enzymatic activity/volume] in Serum or Plasma 65 U/L 5 - 40 H [facility] Alanine aminotransferase [Enzymatic activity/volume] in Seru m or Plasma 44 U/L 7 - 56 [facility] Anion gap 3 in Serum or Plasma 8.0 mmol/L 8.0 - 16.0 [facility]GE 64 [facility]60 [facility]/min [facility] AFR AMER GFR >60 [facility] Male GFR In terprentation 20-49 yrs >60 mL/min Normal 50-59 yrs >56 mL/min Normal 60-69 yrs >49 mL/min Normal 70-79yrs >42 mL/min Normal 80 and above >35 mL/min Normal Female GFR Interpretation 20-39 yrs >60 mL/min Normal 40-49 yrs >58 mL/min Normal 50-59 yrs >51 mL/min Normal 60-69 yrs >45 mL/min Normal 70-79 yrs >39 mL/min Normal 80 and above >32 mL/min Normal ID Date Data Source [id number] 01/29/2020 07:15:00 AM EST [facility] Name Value Range Interpretation Code Description Data Makayla rce(s) Supporting Document(s) CBC W/AUTOMATED DIFF [facility] COMPLETE BLOOD COUNT Leukocytes [#/volume] in Blood by Automated count 15.0 10^3/uL 4.2 - 11.0 H [facility] Erythrocytes [#/volume] in Blood by Automated count 4.19 10^6/uL 4. 20 - 5.40 L [facility] Hemoglobin [Mass/volume] in Blood 12.4 g/dL 12.0 - 16.0 [facility] Hematocrit [Volume Fraction] of Blood by Automated count 36.9 % 3 7.0 - 47.0 L [facility] Erythrocyte mean corpuscular volume [Entitic volume] by Auto mated count 88.1 fL 81.0 - 101 [facility] Erythrocyte mean corpuscular hemoglobin [Entitic mass] by Automated count 29.6 pg 27.0 - 34.0 [facility] Erythrocyte mean corpuscular hemoglobin concentration [Mass/volume] by Automated count 33.6 g/dL 31.0 - 36.0 [facility] Erythrocyte distribution width [Ratio] by Automated count 13.7 % 11.5 - 14.5 [facility] Platelets [#/volume] in Blood by Automated count 263 10^3/uL 150 - 45 0 [facility] Platelet mean volume [Entitic volume] in Blood by Automated count 9.8 fL 7.4 - 10.4 [facility] Neutrophils/100 leukocytes in Blood by Automated count 79.7 % 37. 0 - 80.0 [facility] Lymphocytes/100 leukocytes in Blood by Manual count 9.9 % 25.0 - 40.0 L [facility] Monocytes/100 leukocytes in Blood by Automated count 5.3 % 3.0 - 8.0 [facility] Eosinophils/100 leukocytes in Blood by Automated count 0.0 % 0.0 - 7.0 [facility] Basophils/100 leukocytes in Blood by Automated count 0.3 % 0.0 - 2.5 [facility] %IG 4.8 % 0.0 - 0.0 H [facility] %NRBC 0.0 % 0.0 - 0.0 [facility] al Neutrophils [#/volume] in Blood by Automated count 11.95 10^3/uL 2. 00 - 6.90 H [facility] Lymphocytes [#/volume] in Blood by Automated count 1.48 10^3/uL 0.60 - 3.40 [facility] Monocytes [#/volume] in Blood by Automated count 0.80 10^3/uL 0.00 - 0.90 [facility] Eosinophils [#/volume] in Blood by Automated count 0.00 10^3/uL 0.00 - 0.70 [facility] Basophils [#/volume] in Blood by Automated count 0.05 10^3/uL 0.00 - 0.20 [facility] #IG 0.72 10^3/uL 0.00 - 0.10 H [facility] #NRBC 0.00 10^3/uL 0.00 - 0.00 [facility] MANUAL DIFF NOT INDICATED [facility] RBC MORPH NOT INDICATED [facility] spital ID Date Data Source [id number] 01/28/2020 07:44:00 AM EST [facility] Name Value Range Interpretation Code Description Data Makayla rce(s) Supporting Document(s) CBC W/AUTOMATED DIFF [facility] COMPLETE BLOOD COUNT Leukocytes [#/volume] in Blood by Automated count 14.1 10^3/uL 4.2 - 11.0 H [facility] Erythrocytes [#/volume] in Blood by Automated count 4.08 10^6/uL 4. 20 - 5.40 L [facility] Hemoglobin [Mass/volume] in Blood 12.2 g/dL 12.0 - 16.0 [facility] Hematocrit [Volume Fraction] of Blood by Automated count 36.0 % 3 7.0 - 47.0 L [facility] Erythrocyte mean corpuscular volume [Entitic volume] by Auto mated count 88.2 fL 81.0 - 101 [facility] Erythrocyte mean corpuscular hemoglobin [Entitic mass] by Automated count 29.9 pg 27.0 - 34.0 [facility] Erythrocyte mean corpuscular hemoglobin concentration [Mass/volume] by Automated count 33.9 g/dL 31.0 - 36.0 [facility] Erythrocyte distribution width [Ratio] by Automated count 13.6 % 11.5 - 14.5 [facility] Platelets [#/volume] in Blood by Automated count 239 10^3/uL 150 - 45 0 [facility] Platelet mean volume [Entitic volume] in Blood by Automated count 9.9 fL 7.4 - 10.4 [facility] Neutrophils/100 leukocytes in Blood by Automated count 80.1 % 37. 0 - 80.0 H [facility] Lymphocytes/100 leukocytes in Blood by Manual count 11.5 % 25.0 - 40.0 L [facility] Monocytes/100 leukocytes in Blood by Automated count 5.8 % 3.0 - 8.0 [facility] Eosinophils/100 leukocytes in Blood by Automated count 0.0 % 0.0 - 7.0 [facility] Basophils/100 leukocytes in Blood by Automated count 0.2 % 0.0 - 2.5 [facility] %IG 2.4 % 0.0 - 0.0 [facility] 0.0 % 0.0 - 0.0 [facility] al Neutrophils [#/volume] in Blood by Automated count 11.29 10^3/uL 2. 00 - 6.90 H [facility] Lymphocytes [#/volume] in Blood by Automated count 1.62 10^3/uL 0.60 - 3.40 [facility] Monocytes [#/volume] in Blood by Automated count 0.82 10^3/uL 0.00 - 0.90 [facility] Eosinophils [#/volume] in Blood by Automated count 0.00 10^3/uL 0.00 - 0.70 [facility] Basophils [#/volume] in Blood by Automated count 0.03 10^3/uL 0.00 - 0.20 [facility] #IG 0.34 10^3/uL 0.00 - 0.10 H [facility] #NRBC 0.00 10^3/uL 0.00 - 0.00 [facility] MANUAL DIFF SEE BELOW [facility] ital Segmented neutrophils/100 leukocytes in Blood by Manual count 82 % 37 - 80 H [facility] BAND 3 % 0 - 5 [facility] %LYMPH 9 % 25 - 40 L [facility] al %MONO 6 % 3 - 8 [facility] al RBC MORPH NOT INDICATED [facility] ID Date Data Source [id number] 01/28/2020 07:25:00 AM EST [facility] Name Value Range Interpretation Code Description Data Makayla rce(s) Supporting Document(s) COMPREHENSIVE METABOLIC PANEL [facility] COMPREHENSIVE METABOLIC PANEL Sodium [Moles/volume] in Serum or Plasma 142 mEq/L 134 - 153 [facility] Potassium [Moles/volume] in Serum or Plasma 4.0 mEq/L 3.6 - 5.0 [facility] Chloride [Moles/volume] in Serum or Plasma 109 mEq/L 98 - 107 H [facility] Carbon dioxide, total [Moles/volume] in Serum or Plasma 25 MEQ/L 22 - 30 [facility] Glucose [Mass/volume] in Serum or Plasma 138 MG/DL 65 - 110 H [facility] BUN 13 MG/DL 7 - 21 [facility] al Creatinine [Mass/volume] in Serum or Plasma 0.6 MG/DL 0.7 - 1.5 L [facility] BUN/CREAT 22 8 - 27 [facility] al Protein [Mass/volume] in Serum or Plasma 5.2 G/DL 6.3 - 8.2 L [facility] Albumin [Mass/volume] in Serum or Plasma 3.2 G/DL 3.9 - 5.0 L [facility] Globulin [Mass/volume] in Serum by calculation 2.0 GM/DL 2.4 - 3.2 L [facility] A/G RATIO 1.6 0.8 - 2.0 [facility] al Calcium [Mass/volume] in Serum or Plasma 8.1 MG/DL 8.4 - 10.2 L [facility] Bilirubin.total [Mass/volume] in Serum or Plasma <0.7 MG/DL 0.2 - 1.3 [facility] Alkaline phosphatase [Enzymatic activity/volume] in Serum or Plasma 36 U/L 38 - 126 L [facility] Aspartate aminotransferase [Enzymatic activity/volume] in Serum or Plasma 65 U/L 5 - 40 H [facility] Alanine aminotransferase [Enzymatic activity/volume] in Seru m or Plasma 35 U/L 7 - 56 [facility] Anion gap 3 in Serum or Plasma 8.0 mmol/L 8.0 - 16.0 [facility] AGE 64 yrs [facility] al NON-AA GFR >60 mL/min [facility] AFR AMER GFR >60 [facility] Male GFR In terprentation 20-49 yrs >60 mL/min Normal 50-59 yrs >56 mL/min Normal 60-69 yrs >49 mL/min Normal 70-79yrs >42 mL/min Normal 80 and above >35 mL/min Normal Female GFR Interpretation 20-39 yrs >60 mL/min Normal 40-49 yrs >58 mL/min Normal 50-59 yrs >51 mL/min Normal 60-69 yrs >45 mL/min Normal 70-79 yrs >39 mL/min Normal 80 and above >32 mL/min Normal ID Date Data Source [id number] 01/28/2020 12:17:00 AM EST [facility] Name Value Range Interpretation Code Description Data Makayla rce(s) Supporting Document(s) Vancomycin [Mass/volume] in Serum or Plasma --trough 15.1 ug/mL 10.0 - 15.0 H [facility] TROUG H First trough is drawn 30 minutes prior to fourth dose. If patient is not hemodynamically stable, a trough is obtained as deemed medically necessary. If patient is hemodynamically stable, a trough should be drawn once a week. The trough is drawn 30 minutes prior to the next dose. Mild Infections Trough 10-15 mg/L Severe Infections Trough 15-20 mg/L [facility] Infections Trough 20-25 mg/L *Severe Infections - Endocarditis, Osteomyelitis, Hospital Acquired Pneumonia, Sepsis ID Date Data Source [id number] 01/27/2020 11:17:00 AM EST [facility] [address] [place] [address] PHONE: [phone] FAX: [phone] Name .................. : ZURDO Shetty Acct Number.................. : [id number] ROOM. ................. : TR-1B MR Number ................... : [id number] Stay type ............. : E/R Discharge Date......... ... : Admit Date ......... : 01/26/20 Admit Phys .................... : BURTON Date of ....... : 1955 Family Phys ................... : FINN RIOS Phone .................. : [phone] Age ................................ : 64 Film# .................. .:[id number] Sex ................................. : F Unsigned transcriptions are preliminary reports and do not represent a medical or legal document CHEST PORTABLE [id number] COMPLETE:01/26/20 09:00 [facility] 569 Reason(s): shortness of breath, COVID positive PORTABLE CHEST X-RAY: CLINICAL HISTORY: 64-year-old woman with shortness of breath, COVID positive. COMPARISON: Prior study from 01/20/20. FINDINGS: A portable AP upright chest study is obtained. This study is somewhat difficult to interpret since it is underexposed. If further evaluations are required, a CT scan would be helpful. The heart, mediastinum and vascularity are within normal limits. There is a question of a subtle left upper lobe infiltrate. The left lung base is difficult to evaluate due to overlapping structures. No definite effusion is seen. There may be elevation of the left hemidiaphragm, but this appearance in the left lung base is most likely related to overlapping structures. IMPRESSION: 1. Limited study. 2. Question of a left upper lobe infiltrate. 3. A follow up chest study or CT scan of the chest would be helpful for further evaluation. Electronically Reviewed and Signed By Roque Platt MD , 01/27/20 11:17, [facility] Transcribe Initials: DEDRICK , Transcribe Date: 01/26/20 10:19, Dictation Date: Copy for: 002 [facility] Copy for: 710 [facility] REC Page 1 of 1 Name Value Range Interpretation Code Description Data Makayla rce(s) Supporting Document(s) ID Date Data Source [id number] 01/27/2020 10:11:00 [place] [address] RESPIRATORY CARE REPORT ==== ---------NAME------- NUMBER SEX AGE ADMIT DISC. XRAY# F/C GINNYJACKGEOVANNY LEIVA Sena [id number] F 64 01/26/20 [id number] M4 I/P DATE OF : 1955 M/R# [id number] #: [id number] 112-2 LOCATION: EMERGENCY DEPT EKG 76542 COMP LETE:01/27/20 07:05 ED 39869 PHYSICIAN: USNI Name Value Range Interpretation Code Description Data Makayla rce(s) Supporting Document(s) ID Date Data Source [id number] 01/27/2020 10:11:00 [place] [address] RESPIRATORY CARE REPORT ==== ---------NAME------- NUMBER SEX AGE ADMIT DISC. XRAY# F/C GINNYJACKGEOVANNY Shetty [id number] F 64 01/26/20 [id number] M4 I/P DATE OF : 1955 M/R# [id number] PH#: [phone] 112-2 LOCATION: EMERGENCY DEPT [facility] [address] COMP LETE:01/26/20 15:53 [facility] [address] PHYSICIAN: SUNI CREWS Name Value Range Interpretation Code Description Data Makayla rce(s) Supporting Document(s) ID Date Data Source [id number] 01/27/2020 09:34:00 [place] [address] PHONE: [phone] FAX: [phone] Name .................. : ZURDO Shetty Acct Number.................. : [id number] [facility]. ................. : 112-2 Number ................... : [id number] Stay type ............. : I/P Discharge Date......... ... : Admit Date ......... : 12/20/20 Admit Phys .................... : SUNI Date of ....... : 1955 Family Phys ................... : FINN RIOS Phone .................. : [phone] Age ................................ : 64 Film# .................. .:[id number] Sex ................................. : F Unsigned transcriptions are preliminary reports and do not represent a medical or legal document CT THORAX W/O CONTRAST [id number] COMPLETE:01/26/20 10:48 575 (REASON FOR CHEST: SHORTNESS OF BREATH CT OF THE CHEST WITHOUT CONTRAST: CLINICAL HISTORY: Shortness of breath. FINDINGS: The neck base is clear. There are patchy ground glass and confluent infiltrates bilaterally. The heart is normal in size. No lymphadenopathy. The visualized upper abdomen demonstrates no acute abnormality. There is no acute osseous abnormality. IMPRESSION: Findings consistent with history of COVID infection. While performing the above CT examination, radiation dose reduction was accomplished utilizing automated exposure control, adjusting of the mA and kV based on the patient's body size and/or the use of imperative reconstructive techniques. CT dose: 794.1 mGycm Electronically Reviewed and Signed By Richard Kapadia M.D. , 01/27/20 09:34, [facility] Transcribe Initials: DEDRICK , Transcribe Date: 01/26/20 20:02, Dictation Date: Copy for: 002 [facility] Copy for: 710 [facility] REC Page 1 of 1 Name Value Range Interpretation Code Description Data Makayla rce(s) Supporting Document(s) ID Date Data Source [id number] 01/27/2020 09:50:00 AM [facility] Name Value Range Interpretation Code Description Data Makayla rce(s) Supporting Document(s) Hemoglobin A1c/Hemoglobin.total in Blood 5.8 % 4.4 - 6.1 [facility] {A1]{HB] ID Date Data Source [id number] 01/27/2020 07:44:00 AM EST [facility] Name Value Range Interpretation Code Description Data Makayla rce(s) Supporting Document(s) CBC W/AUTOMATED DIFF [facility] COMPLETE BLOOD COUNT Leukocytes [#/volume] in Blood by Automated count 4.4 10^3/uL 4.2 - 1 1.0 [facility] Erythrocytes [#/volume] in Blood by Automated count 4.11 10^6/uL 4. 20 - 5.40 L [facility] Hemoglobin [Mass/volume] in Blood 12.4 g/dL 12.0 - 16.0 [facility] Hematocrit [Volume Fraction] of Blood by Automated count 36.0 % 3 7.0 - 47.0 L [facility] Erythrocyte mean corpuscular volume [Entitic volume] by Auto mated count 87.6 fL 81.0 - 101 [facility] Erythrocyte mean corpuscular hemoglobin [Entitic mass] by Automated count 30.2 pg 27.0 - 34.0 [facility] Erythrocyte mean corpuscular hemoglobin concentration [Mass/volume] by Automated count 34.4 g/dL 31.0 - 36.0 [facility] Erythrocyte distribution width [Ratio] by Automated count 13.3 % 11.5 - 14.5 [facility] Platelets [#/volume] in Blood by Automated count 189 10^3/uL 150 - 45 0 [facility] Platelet mean volume [Entitic volume] in Blood by Automated count 9.6 fL 7.4 - 10.4 [facility] Neutrophils/100 leukocytes in Blood by Automated count 74.1 % 37. 0 - 80.0 [facility] Lymphocytes/100 leukocytes in Blood by Manual count 21.1 % 25.0 - 40.0 L [facility] Monocytes/100 leukocytes in Blood by Automated count 3.4 % 3.0 - 8.0 [facility] Eosinophils/100 leukocytes in Blood by Automated count 0.0 % 0.0 - 7.0 [facility] Basophils/100 leukocytes in Blood by Automated count 0.0 % 0.0 - 2.5 [facility] %IG 1.4 % 0.0 - [facility].0 [facility] % 0.0 - 0.0 [facility] al Neutrophils [#/volume] in Blood by Automated count 3.27 10^3/uL 2.00 - 6.90 [facility] Lymphocytes [#/volume] in Blood by Automated count 0.93 10^3/uL 0.60 - 3.40 [facility] Monocytes [#/volume] in Blood by Automated count 0.15 10^3/uL 0.00 - 0.90 [facility] Eosinophils [#/volume] in Blood by Automated count 0.00 10^3/uL 0.00 - 0.70 [facility] Basophils [#/volume] in Blood by Automated count 0.00 10^3/uL 0.00 - 0.20 [facility] #IG 0.06 10^3/uL 0.00 - 0.10 [facility] #NRBC 0.00 10^3/uL 0.00 - 0.00 [facility]spital MANUAL DIFF SEE BELOW [facility] ital Segmented neutrophils/100 leukocytes in Blood by Manual count 78 % 37 - 80 [facility] %LYMPH 19 % 25 - 40 L [facility] al %MONO 2 % 3 - 8 L [facility] al %EOS 1 % 0 - 7 [facility] al RBC MORPH NOT INDICATED [facility] ID Date Data Source [id number] 01/27/2020 07:17:00 AM EST [facility] Name Value Range Interpretation Code Description Data Makayla rce(s) Supporting Document(s) COMPREHENSIVE METABOLIC PANEL [facility] COMPREHENSIVE METABOLIC PANEL Sodium [Moles/volume] in Serum or Plasma 135 mEq/L 134 - 153 [facility] Potassium [Moles/volume] in Serum or Plasma 4.1 mEq/L 3.6 - 5.0 [facility] Chloride [Moles/volume] in Serum or Plasma 102 mEq/L 98 - 107 [facility] Carbon dioxide, total [Moles/volume] in Serum or Plasma 26 MEQ/L 22 - 30 [facility] Glucose [Mass/volume] in Serum or Plasma 158 MG/DL 65 - 110 H [facility] BUN 9 MG/DL 7 - 21 [facility] Creatinine [Mass/volume] in Serum or Plasma 0.6 MG/DL 0.7 - 1.5 L [facility] BUN/CREAT 15 8 - 27 [facility] Protein [Mass/volume] in Serum or Plasma 5.8 G/DL 6.3 - 8.2 L [facility] Albumin [Mass/volume] in Serum or Plasma 3.1 G/DL 3.9 - 5.0 L [facility] Globulin [Mass/volume] in Serum by calculation 2.7 GM/DL 2.4 - 3.2 [facility] A/G RATIO 1.1 0.8 - 2.0 [facility] Calcium [Mass/volume] in Serum or Plasma 7.9 MG/DL 8.4 - 10.2 L [facility] Bilirubin.total [Mass/volume] in Serum or Plasma <0.7 MG/DL 0.2 - 1.3 [facility] Alkaline phosphatase [Enzymatic activity/volume] in Serum or Plasma 35 U/L 38 - 126 L [facility] Aspartate aminotransferase [Enzymatic activity/volume] in Serum or Plasma 58 U/L 5 - 40 H [facility] Alanine aminotransferase [Enzymatic activity/volume] in Seru m or Plasma 24 U/L 7 - 56 [facility] Anion gap 3 in Serum or Plasma 7.0 mmol/L 8.0 - 16.0 L [facility] AGE 64 yrs [facility] al NON-AA GFR >60 mL/min [facility] ital AFR AMER GFR >60 [facility] Male GFR In terprentation 20-49 yrs >60 mL/min Normal 50-59 yrs >56 mL/min Normal 60-69 yrs >49 mL/min Normal 70-79yrs >42 mL/min Normal 80 and above >35 mL/min Normal Female GFR Interpretation 20-39 yrs >60 mL/min Normal 40-49 yrs >58 mL/min Normal 50-59 yrs >51 mL/min Normal 60-69 yrs >45 mL/min Normal 70-79 yrs >39 mL/min Normal 80 and above >32 mL/min Normal ID Date Data Source [id number] 01/26/2020 08:38:00 AM EST [facility] 1 OrderSheet [facility] Emergency Department [address] [place] [address] Phone #: ext- [phone] 01/26/2020 08:38 Patient: ABBIE OTT Sex: F : 1955 Age: 64yWEIGHT:119.4 kg (M) HEIGHT:64 inches BMI:45.2ALLERGIES: PenicillinsCHIEF COMPLAINT: dyspneaDIAGNOSIS: Fever, Pneumonia, BacteremiaLAB ORDERSOrder Description Priority Entered Acknowledged InitialedBlood Culture STAT 08:42 01/26/2020 09:07 [id number] X2 (Sched Renée Crews RN08:42 01/26/2020) ;Blood Culture STAT 08:42 01/26/2020 09:07 [id number] X2 (Sched Renée Crews RN08:52 01/26/2020) ;CBC w Diff STAT 08:42 01/26/2020 09:07 Renée Anthony RN ;CMP STAT 08:42 01/26/2020 09:07 Renée Anthony RN ;Culture, Urine STAT 08:42 01/26/2020 09:07 Roxanna(Urine, Renée Wade RNCatch) ;Lactic Acid STAT 08:42 01/26/2020 09:07 Renée Anthony RN ;PT/INR STAT 08:42 01/26/2020 09:07 Renée Anthony RN ;Troponin-T STAT 08:42 01/26/2020 09:07 Renée Anthony RN ;Urinalysis (Clean STAT 08:42 01/26/2020 10:28 DorisCatch) Renée Crews RN ;ABG STAT 08:42 01/26/2020 09:07 Renée Anthony RN ; 2 OrderSheet [facility] Emergency Department [address] [place] [address] Phone #: ext- [phone] 01/26/2020 08:38 Patient: ABBIE OTT Sex: F : 1955 Age: 64yDIAGNOSTIC STUDY ORDERSOrder Description Priority Entered Acknowledged InitialedChest Portable 1 STAT 08:42 01/26/2020 09:07 Renée Espinoza RN(Oxygen?(No)) ; Reason for Study: shortness of breath, COVID positiveMEDICATION/IV/DRIP/FLUID ORDERSOrder Description Priority Entered Acknowledged InitialedIV NS : Bolus 30 08:42 01/26/2020 09:14 DorismL/kg, then 150 Renée Crews RNmL/hr ;Clindamycin IVPB 09:00 01/26/2020 09:37 [id number] mg (NOW x1) Renée Crews RN ;Zithromax IVPB 500 10:22 01/26/2020 11:20 Dorismg X1 Dose: 500 Renée Crews RNmg with Dextrose ;Intravenous 250 mL(NOW x1)Tylenol PO 650 mg 11:33 01/26/2020 12:18 Roxanna(NOW) Renée Crews RN ;GENERAL ORDERSOrder Description Priority Entered Acknowledged InitialedAccucheck 08:42 01/26/2020 09:37 Renée Anthony RN ;Blood Pressure 08:42 01/26/2020 09:07 DorisMonitor Renée Crews RN ;EKG 08:42 01/26/2020 09:31 Renée Anthony RN ;NPO 08:42 01/26/2020 09:07 Renée Anthony RN ;Oxygen titrate to 08:42 01/26/2020 09:07 Roxanna92% Renée Crews RN ;Pulse oximeter 08:42 01/26/2020 09:07 Roxanna(Continuous) Renée Crews RN 3 OrderSheet [facility] Emergency Department [address] [place] [address] Phone #: ext- [phone] 01/26/2020 08:38 Patient: ABBIE OTT Sex: F : 1955 Age: 64y ;Saline Lock 08:42 01/26/2020 09:07 Renée Anthony RN ;Vitals 08:42 01/26/2020 09:07 Renée Anthony RN ;[Electronically signed by Roxanna Ricardo RN (12:32 01/26/2020)][Electronically signed by Renée Crews (16:31 01/26/2020)][Electronically locked by Roxanna Ricardo RN (12:32 01/26/2020)] Name Value Range Interpretation Code Description Data Makayla rce(s) Supporting Document(s) ID Date Data Source [id number] 01/26/2020 08:38:00 AM EST [facility] 1 Medication Reconciliation Report [facility] Emergency Department [address] [place] [address] Phone #: ext- [phone] 01/26/2020 08:38 Patient: ABBIE OTT Sex: F : 1955 Age: 64yWeight: 119.4 kgHeight/Length: 64 in.BMI: 45.2ALLERGIES: PenicillinsThe patient's Home Medications are listed below:THE FOLLOWING MEDICATIONS NEED TO BE RECONCILED: Atorvastatin Calcium Oral 20 mg, daily Losartan Potassium-HCTZ Oral Multivitamin Oral 1 TAB, dailyThe source(s) of the original Home Medication information:Not obtained.The following Medications were given to the patient in the Emergency Department:IV NS IV Fluids bolus 1000 mL wide open, then 1000 mL/hr, administered: 09:09 01/26/2020Clindamycin [IVPB] IVPB bolus 0, then 900 mg 100 mL/hr, administered: 09:37 01/26/2020IV NS IV Fluids bolus 1000 mL over 1 hour(s), then 1000 mL/hr, administered: 10:08 01/26/2020Zithromax [IVPB] IVPB bolus 0, then 500 mg 250 mL/hr, administered: 11:08 01/26/2020Tylenol [PO] PO 650 mg, administered: 11:39 01/26/2020IV NS IV Fluids bolus 1000 mL over 1 hour(s), then 1000 mL/hr, administered: 11:40 01/26/2020The following Medications were prescribed to the patient:None. Name Value Range Interpretation Code Description Data Makayla rce(s) Supporting Document(s) ID Date Data Source [id number] 01/26/2020 08:38:00 AM EST [facility] 1 Medication Administration Record [facility] Emergency Department [address] [place] [address] Phone #: ext- [phone] 01/26/2020 08:38 Patient: ABBIE OTT Sex: F : 1955 Age: 64yWeight: 119.4 kgHeight/Length: 64 inBMI: 45.2ALLERGIES: Penicillins Date/Time Medication Administered Medication OrderedStart IV NS IV NS : Bolus 30 mL/kg, then 53595:09 01/26/2020 Dose: IV Fluids mL/Hellen Ricardo RN Rate: 1000 mL/hr over 1 hour(s)---- Bolus: 1000 mL wide openStop Dispensed: 1000 mL bag10:07 01/26/2020 Site: #1 right Zayra Plata IV NS IV NS : Bolus 30 mL/kg, then 64108:08 01/26/2020 Dose: IV Fluids mL/Hellen Ricardo RN Rate: 1000 mL/hr over 1 hour(s)---- Bolus: 1000 mL over 1 hour(s)Stop Dispensed: 1000 mL bag11:08 01/26/2020 Site: #1 right Zayra Plata IV NS IV NS : Bolus 30 mL/kg, then 54496:40 Dose: IV Fluids mL/Hellen Ricardo RN Rate: 1000 mL/hr over 1 hour(s)---- Bolus: 1000 mL over 1 hour(s)Continued Upon Admission Dispensed: 1000 mL bag12:00 01/26/2020 Site: #1 right Zayra Plata CLINDAMYCIN [IVPB] Clindamycin IVPB 900 mg (NOW09:37 01/26/2020 Dose: 900 mg IVPB x1)Roxanna Ricardo RN Rate: 100 mL/hr over 30 minute(s)---- Dispensed: 50 mL bagStop Site: #1 right AC10:07 01/26/2020Zayra Daniels ZITHROMAX [IVPB] (AZITHROMYCIN) Zithromax IVPB 500 mg X1 Dose:11:08 01/26/2020 Dose: 500 mg IVPB 500 mg with Dextrose IntravenousRoxanna Ricardo RN Rate: 250 mL/hr over 1 hour(s) 250 mL (NOW x1)---- Dispensed: 250 mL bagContinued Upon Admission Site: #1 right AC12:00 01/26/2020Roxanna Ricardo RNGiven TYLENOL [PO] (APAP) Tylenol PO 650 mg (NOW)11:39 01/26/2020 Dose: 650 mg Tablets PODchio Ricardo RN Name Value Range Interpretation Code Description Data Makayla rce(s) Supporting Document(s) ID Date Data Source [id number] 01/26/2020 08:38:00 AM [facility] 1 General Instructions [facility] Emergency Department [address] [place] [address] Phone #: ext- [phone] 01/26/2020 08:38 Patient: ABBIE OTT Sex: F : 1955 Age: 64yAcute fever.Bacteremia.Bacterial and lobar pneumonia. No hypoxemia, respiratory failure or sepsis.(Electronically signed by Renée Crews 01/26/2020 16:31) Name Value Range Interpretation Code Description Data Makayla rce(s) Supporting Document(s) ID Date Data Source [id number] 01/26/2020 08:38:00 AM [facility] 1 Clinical Report - Nurses [facility] Emergency Department [address] [place] [address] Phone #: ext- [phone] 01/26/2020 08:38 Patient: ABBIE OTT Sex: F : 1955 Age: 64yTRIAGEHistorian: patient.Triage time: 08:42 01/26/2020. Acuity: LEVEL 3.Chief Complaint: FEVER, CHILLS, SWEATS and "NOT FEELING WELL".08:42 01/26/20. Alert. No acute distress.Onset. (1 weeks ago).SEPSIS SCREEN: SIRS SCREEN: heart rate greater than 90. SEPSIS SCREEN POSITIVE. Suspected /confirmed signs of infection present. --08:58 01/26/20 Roxanna Ricardo RN08:42 01/26/20. BP: 114/41. MAP: 65. HR: 93. RR: 15. O2 saturation: 95%. Temp: 100 F (oral). Pain levelnow: 0/10. --08:58 01/26/20 Roxanna Ricardo RN08:45 01/26/20.( Fever, chills, fatigue began Monday01/18/20, seen in this ED Monday01/20/20, diagnosed withBronchitis. Patient was notified from ED RN that she had positive blood cultures was called in a Rx forKeflex. Patient states she continues to have fevers ranging from 99.-103. has been nauseous, "can nottolerate fluids"). --10:34 01/26/20 Roxanna Ricardo RNTreatment JIRA ADMINISTRATOR:Took ibuprofen. (0500). --10:35 01/26/20 Roxanna Ricardo RN.Weight: 119.4 kg measured. Height/Length: 64 inches. BMI: 45.2. --08:42 01/26/20 Roxanna Ricardo RN.MedicationsAtorvastatin Calcium Oral 20 mg, daily. Losartan Potassium-HCTZ Oral. Multivitamin Oral 1 TAB, daily. --08:57 01/26/20 Roxanna Ricardo RN.AllergiesPenicillins. Definite Moderate(hives) --08:57 01/26/20 Roxanna Ricardo RN.PROBLEMS:Hypertension.Hypercholesterolemia.Obesity. --08:57 01/26/20 Roxanna Ricardo RN.ADDITIONAL SURGERIES: 2 Clinical Report - Nurses [facility] Emergency Department [address] [place] [address] Phone #: ext- [phone] 01/26/2020 08:38 Patient: ABBIE OTT [facility]#: [id number] Sex: F : 1955 Age: 64y Hysterectomy. --08:57 01/26/20 Roxanna Ricardo RN. History 08:42 01/26/20. PAST MEDICAL HX: Immunizations: up-to-date. SOCIAL HX: Never smoker. No alcohol use or drug use. She has had contact with a sick individual. (daughter diagnosed with COVID-19). She was offered HIV testing but declined and hepatitis C testing but declined. She has not traveled outside the [place] Infectious disease exposure: No infectious disease exposure. (Diagnosed with COVID-19 Monday seen in ED). Patient is not a known carrier of tuberculosis, hepatitis, HIV, MRSA or VRE. Patient is not a known carrier of CRE. SELF HARM ASSESSMENT: Self harm assessment was performed. The patient answered "no" to the question(s) "Do you have thoughts of harming or killing yourself?" and "Have you recently had thoughts about harming or killing others?". ABUSE ASSESSMENT: Abuse assessment. The patient had positive responses to the question(s) "Do you feel safe in your home?" (yes). No report of abuse. NUTRITIONAL RISK ASSESSMENT: The nutritional risk assessment revealed no deficiencies. FUNCTIONAL ASSESSMENT: Functional assessment: no impairments noted. LEARNING NEEDS ASSESSMENT: The learning needs assessment revealed no barriers. FALL RISK ASSESSMENT: Fall risk assessment completed. Fall interventions initiated. P atient placed on stretcher. Side rails up x2. Bed in low position. Brakes on. Patient identified as a fall risk by chart flagged. Call light in reach of patient. Instructed not to get up without assistance. Instructions given to patient including fall prevention information. Verbalizes understanding. --08:58 01/26/20 Roxanna Ricardo RN. Interventions 08:42 01/26/20. CORONAVIRUS (COVID- 19) protocol initiated. Isolation precautions initiated. Patient teaching given regarding isolation precautions, handwashing and keep door closed. Patient verbalized understanding. To treatment room. --08:58 01/26/20 Roxanna Ricardo RN.PHYSICAL FDPYXYLZCH55:00 01/26/20. Ambulatory to room.GENERAL / NEURO / PSYCH: Alert. Oriented X 4. Appears in no acute distress.HEENT: Pupils equal, round and reactive to light. Mucous membranes are pink.RESPIRATORY: Mild respiratory distress. Chest nontender. Decreased breath sounds in the left lungbase.CVS: Normal sinus rhythm noted. Cardiac rhythm: normal sinus rhythm; (94). Capillary refill less than 2seconds. Pulses within normal limits. 3 Clinical Report - Nurses [facility] Emergency Department [address] [place] [address] Phone #: ext- [phone] 01/26/2020 08:38 Patient: ABBIE OTT Sex: F : 1955 Age: 64y GI / : Abdomen soft and nontender and normal bowel sounds. SKIN: Skin intact. Skin is warm and dry. Normal skin turgor. --11:31 01/26/20 Roxanna Ricardo RN.NURSING PROGRESS NOTES08:42 01/26/20. fulfillment mail clerk, NIBP monitor and pulse oximeter placed on patient; av specialist-Lead II; monitor alarms on. Patient gowned. Head of bed elevated. Two patient identifiers checked.Call light placed in reach. Side rails up x 2. Bed placed in lowest position. Brakes of bed on. Patientready for evaluation- ED physician notified. --08:59 01/26/20 Roxanna Ricardo RN 08:58 01/26/20. Portable chest x-ray completed. --08:59 01/26/20 Roxanna Ricardo RN 09:02 01/26/2020 Site #1 started via IV in the right antecubital space with an 20g angiocath, with aseptic technique and good blood return; one attempt. Blood drawn: rainbow set and cultures x2. Labeled in the presence of the patient and sent to the lab. Saline lock flushed with 10 mL saline. --09:07 01/26/20 Roxanna Ricardo RN 09:09 01/26/2020 Started bag #1 1000 mL IV Fluids IV NS; bolus of 1000 mL wide open then at 1000 mL/hr over 1 hour(s) via site #1 via IV pump. Allergies verified and confirmed 5 rights. IV patency established. IV site chec ked: no pain, redness, or swelling. IV flushed thoroughly pre- and post- medication administration. Information reviewed with patient including reason for taking this medication, signs of allergic reaction and precautions. Verbalizes understanding. Completed per protocol. --09:14 01/26/20 Roxanna Ricardo RN 09:09 01/26/20. ( Liter #1 of 3570 ml bolus up site clear, patient resting comfortably, no cough, denies pain RSR on monitor). --09:16 01/26/20 Roxanna Ricardo RN 09:27 01/26/20. EKG time: (09:01/26/2020). EKG was ordered, performed by a nurse and shown to the ED physician. --09:33 01/26/20 Sultana Ricardo RN 09:37 01/26/2020 Started 900 mg of Clindamycin IVPB in bag #1 50 mL; at 100 mL/hr over 30 minute(s) via site #1. via IV pump. Allergies verified and confirmed 5 rights. IV patency established. IV site checked: no pain, redness, or swelling. IV flushed thoroughly pre- and post-medication administration. Information reviewed with patient including reason for taking this medication, signs of allergic reaction and precautions. Verbalizes understanding. Completed per protocol. --09:37 01/26/20 Roxanna Ricardo RN 09:43 01/26/20. Point of Care Testing: Performed by nurse. Finger stick glucose: 120 mg/dL. Result shown to the ED physician. --09:44 01/26/20 Roxanna Ricardo RN 09:44 01/26/20. ( No cough, denies pain, SR on monitor 78, no ectopy). GENERAL / NEURO / PSYCH: Alert. Oriented X 4. RESPIRATORY: No respiratory distress. Breath sounds normal. SKIN: Skin is warm and dry. --09:45 01/26/20 Roxanna Ricardo RN 4 Clinical Report - Nurses [facility] Emergency Department [address] [place] [address] Phone #: ext- [phone] 01/26/2020 08:38 Patient: ABBIE OTT [facility] [id number] Sex: F : 1955 Age: 64y10:07 01/26/2020 Clindamycin IVPB via IV site #1 Discontinued: completed. Total amount infused: 50 mL.IV patency established. IV site checked: no pain, redness, or sw elling. IV flushed thoroughly. --10: Roxanna Ricardo RN10:01/26/2020 IV Fluids IV NS via IV site #1 Discontinued: bag #1 completed. Total amount infused:1000 mL. IV patency established. IV site checked: no pain, redness, or swelling. IV flushed thoroughly.--10:29 01/26/20 Roxanna Ricardo RN10:08 01/26/2020 Started bag #2 1000 mL IV Fluids IV NS; bolus of 1000 mL over 1 hour(s) then at 1000mL/hr over 1 hour(s) via site #1 via IV pump. Allergies verified and confirmed 5 rights. IV patencyestablished. IV site checked: no pain, redness, or swelling. IV flushed thoroughly pre- and post-medic ationadministration. Information reviewed with patient including reason for taking this medication, signs ofallergic reaction and precautions. Verbalizes understanding. Completed per protocol. --10:30 01/26/20Roxanna Ricardo RN09:45 01/26/20. BP: 101/61. MAP: 74. HR: 77. RR: 15. O2 saturation: 92% on room air. O2 started vianasal cannula at 2 liters/minute. Temp: 98.4 F. Pain level now: 0/10. --10:36 01/26/20 Roxanna Ricardo RN10:10 01/26/20. Assisted patient to bedside commode; tolerated well (patient dyspneic with exertion).Patient ID band checked for patient name and birthdate: patient confirmed. Instructions provided to collectclean catch urine and patient verbalized understanding. Clean catch urine collected with return ofyellow-colored clear urine; sample sent to lab for urinalysis. Specimen labeled in the presence of thepatient. --10:38 01/26/20 Roxanna Ricardo RN10:35 01/26/20. Reassessment after medication administered. No adverse reaction. Nausea gone now.Reassessment after fluids ad ministered. She reports no complaints, she is calm and resting quietly andshe has had no adverse reaction. --10:36 01/26/20 Roxanna Ricardo RN11:08 01/26/2020 Started 500 mg of Zithromax (Azithromycin) IVPB in bag #1 250 mL; at 250 mL/hr over 1hour(s) via site #1. via IV pump. Allergies verified and confirmed 5 rights. IV patency established. IV sitechecked: no pain, redness, or swelling. IV flushed thoroughly pre- and post-medication administration.Information reviewed with patient including reason for taking this medication, signs of allergic reaction andprecautions. Verbalizes understanding. Completed per protocol. --11:20 01/26/20 Roxanna Ricardo RN11:08 01/26/2020 IV Fluids IV NS via IV site #1 Discontinued: bag #2 completed. Total amount infused:1000 mL. IV patency established. IV site checked: no pain, redness, or swelling. IV flushed thoroughly.--11:20 01/26/20 Roxanna Ricardo RN10:15 01/26/20. BP: 94/64. MAP: 74. HR: 83. RR: 14. O2 saturation: 98% on nasal cannula at 2liters/minute. Pain level now: 0/10. --11:23 01/26/20 Roxanna Ricardo RN10:30 01/26/20. BP: 97/64. MAP: 75. HR: 72. RR: 16. O2 saturation: 96% on nasal cannula at 2 5 Clinical Report - Nurses [facility] Emergency Department [address] [place] [address] Phone #: ext- [phone] 01/26/2020 08:38 Patient: ABBIE OTT Sex: F : 1955 Age: 64yliters/minute. Pain level now: 0/10. --11:24 01/26/20 Roxanna Ricardo RN10:45 01/26/20. BP: 107/64. MAP: 78. HR: 72. RR: 17. O2 saturation: 96%. Pain level now: 0/10.--11:24 01/26/20 Roxanna Ricardo RN11:00 01/26/20. BP: 103/67. MAP: 79. HR: 72. RR: 20. O2 saturation: 96% on nasal cannula at 2liters/minute. Pain level now: 0/10. --11:25 01/26/20 Roxanna Ricardo RN11:15 01/26/20. BP: 98/69. MAP: 78. HR: 79. RR: 20. O2 saturation: 97% on nasal cannula at 2liters/minute. Pain level now: 0/10. --11:29 01/26/20 Roxanna Ricardo RN11:15 01/26/20. Reassessment after medication administered. No adverse reaction. Reassessment afterfluids administered. She reports no complaints, she is calm and resting quietly and she has had noadverse reaction. Overall patient status is improved.GENERAL / NEURO / PSYCH: Alert. Oriented X 4.RESPIRATORY: No respiratory distress. --11:01/26/20 Roxanna Ricardo RN11:39 01/26/2020 Tylenol (APAP) PO Tablets 650 mg given. Allergies verified and confirmed 5 rights.Information reviewed with patient including reason for taking this medication, signs of allergic reaction andprecautions. Verbalizes understanding. --12:18 01/26/20 Roxanna Ricardo RN11:40 01/26/2020 Started bag #3 1000 mL IV Fluids IV NS; bolus of 1000 mL over 1 hour(s) then at 1000mL/hr over 1 hour(s) via site #1 via IV pump. Allergies verified and confirmed 5 rights. IV patencyestablished. IV site checked: no pain, redness, or swelling. IV flushed thoroughly pre- and post-medicationadministration. Information reviewed with patient including reason for taking this medication, signs ofallergic reaction and precautions. Verbalizes understanding. Completed per protocol. --12: 01/26/20Roxanna Ricardo, RN11:30 01/26/20. BP: 103/69. MAP: 80. HR: 73. RR: 18. O2 saturation: 96% on nasal cannula at 3liters/minute. Pain level now: 0/10. --12:24 01/26/20 Roxanna Ricardo RN11:40 01/26/20. Reassessment after medication administered. No adverse reaction. Reassessment afterfluids and oxygen administered. She reports no complaints and she is calm and resting quietly. ( IV NSBag #3 infusing at 1000 ml/hour total ordered 30 ml/kg mzauu=5311 ml. Zithromax infusing, site clear.Monitor shows RSR occasional PVC.). --12:28 01/26/20 Roxanna Ricardo RN12:00 01/26/2020 Zithromax IVPB via IV site #1 Continued: upon admission at the rate of 250 mL/hr. 50mL remaining bag #1. IV patency established. IV site checked: no pain, redness, or swelling. IV flushedthoroughly. --12:22 01/26/20 Roxanna Ricardo RN12:00 01/26/2020 IV Fluids IV NS via IV site #1 Continued: upon admission at the rate of 1000 mL/hr. 700mL remaining bag #3. IV patency established. IV site checked: no pain, redness, or swelling. IV flushedthoroughly. --12:23 01/26/20 Archana Daniels 6 Clinical Report - Nurses [facility] Emergency Department [address] [place] [address] Phone #: ext- [phone] 01/26/2020 08:38 Patient: ABBIE OTT Sex: F : 1955 Age: 64yDISPOSITION / DISCHARGE 12:00 01/26/20. BP: 88/48. MAP: 61. HR: 78. RR: 19. O2 saturation: 95% on nasal cannula at 2 liters/minute. Temp: 99.1 F. Pain level now: 0/10. --12:29 01/26/20 Roxanna Ricardo RN 12:00 01/26/20. Admitted to the Acute Inpatient Unit. Transported via stretcher by nurse with monitor, IV, O2 and mask. Bed obtained and ready (112). Patient's personal items include: shirt, pants, undergarments, shoes and purse; items were placed in belongings bag, given to the patient and transported with the patient. --12:30 01/26/20 Roxanna Ricardo RN 12:05 01/26/20. Report was given to a nurse in person and at bedside. Report included information regarding patient's care, treatment, allergies and condition, current vital signs and abnormal labs. Report included treatment information regarding medications given or pending; type and amount of IV fluids and medications infusing and total volume infused. All questions were answered. Report was acknowledged and care was transferred. --12:31 01/26/20 Roxanna Ricardo RN Departure time: 12:00 01/26/2020. --12:31 01/26/20 Roxanna Ricardo RN.Locked/Released at 01/26/2020 12:32 by Roxanna Ricardo RN Name Value Range Interpretation Code Description Data Makayla rce(s) Supporting Document(s) ID Date Data Source [id number] 01/26/2020 08:38:00 AM [facility] 1 Clinical Report - Physicians/Mid Levels [facility] Emergency Department [address] [place] [address] Phone #: ext- [phone] 01/26/2020 08:38 Patient: ABBIE OTT [facility] [id number] Sex: F : 1955 Age: 64y Time Seen: 08:39 01/26/2020; initial patient contact, initial documentation. Arrived- By private vehicle. Historian- patient. RETURN VISIT: recently seen in this ED by another ED physician within past 30 days. Seen now for the same problem as before. Disposition decision: 10:28 01/26/2020.HISTORY OF PRESENT ILLNESS Chief Complaint: DYSPNEA. This started 8 days ago and is still present. The dyspnea is described as moderate. The dyspnea is worsened by walking and ex ertion and is improved by rest. No improvement of dyspnea with oxygen or sitting upright. The patient has had a cough, fever, chills and dyspnea on exertion. No sputum production, sweating episodes, wheezing or chest pain or discomfort. No calf pain, foot swelling, orthopnea, paroxysmal nocturnal dyspnea or anxiety. No dizziness, tingling, numbness or palpitations. (this is a 64 y/o female who presented to the ER for general illness on Jan 20, 2000. had blood work done and tested for COVID. she was discharged home. and was told she had bronchitis. she was having fevers then. her blood culture came back positive on the and was t prescribed keflex and advised to follow up with her PMD for repeat blood cultures. she tested positive for COVID on the . she states that she has not been able to follow up with her doctor because of the COVID. she persisted to have fevers of 101-103 associated with note feeling well. she also states that she has been having non productive cough and some shortness of breath so she decided to come to the ERshe took Motrin prior to coming to the ER for her fever). Similar symptoms previously. Patient has had similar symptoms twice. Recent medical care: The patient was seen recently at this facility in the emergency department. ( 3 days ago).REVIEW OF SYSTEMSThe patient has not had weight loss. No muscle aches, eye irritation, sore throat, nasal discharge or s inusdrainage. No nausea, vomiting, abdominal pain, diarrhea or black stools. No bloody stools, headache,fainting episodes, blurred vision or difficulty with urination. No excessive urination, skin rash, enlargedlymph nodes or joint pain.PAST HISTORYProblems:Sick Contact.Hypertension.Hypercholesterolemia.Obesity. Medications: 2 Clinical Report - Physicians/Mid Levels [facility] Emergency Department [address] [place] [address] Phone #: ggl- [phone] 01/26/2020 08:38 Patient: ABBIE OTT Sex: F : 1955 Age: 64y Atorvastatin Calcium Oral 20 mg, daily. Losartan Potassium- HCTZ Oral. Multivitamin Oral 1 TAB, daily. Allergies: Penicillins. Definite Moderate(hives).SOCIAL HISTORYNever smoker. No alcohol use.ADDITIONAL NOTESThe nursing notes have been reviewed.PHYSICAL EXAMVital Signs: 01/26/2020 08:42 BP: 114/41. MAP: 65. HR: 93. RR: 15. O2 saturation: 95%. Temp: 100 F.Pain level now: 0/10. Have been reviewed. Febrile. Oxygen saturation normal.Appearance: Alert. No acute distress. (irritable).Eyes: Eyes normal inspection.ENT: Ears normal. No se normal. Pharynx normal. Uvula midline.Neck: Normal inspection. No jugular venous distention.CVS: Normal heart rhythm. Heart sounds normal. Pulses normal.Respiratory: No respiratory distress. Painless inspiration. Breath sounds normal. No accessorymuscle use, retractions, prolonged expiration, wheezes or stridor. No crackles or rhonchi.Abdomen: Soft and nontender. No organomegaly. Obese.Back: Normal inspection. CVA tenderness.Skin: Skin warm. Normal skin color. No rash. Normal skin turgor.Extremities: Extremities exhibit normal ROM. No lower extremity edema. No calf tenderness. No lowerextremity edema.Neuro: Oriented X 3. No motor deficit.LABS, X-RAYS, AND EKGEKG: EKG time: 09:40 01/26/2020. No acute process. No acute ischemia. Normal EKG. Normalsinus rhythm. Rate: 80. Normal P waves. Normal QRS complex. Normal ST and T waves. The EKGappears to be a good tracing. Artifact present.Chest X-ray: (Giulia malone Joseph - 01/26/2020 9:10:31 AMlimited; ?kerry infiltrate). The X-rays were interpreted by the radiologist.Laboratory Tests: CBC w Diff: (ADAMARIS: 01/26/2020 09:02) ( MsgRcvd 01/26/2020 09:43) Final results Test Result Flag Units (Reference) CBC W/AUTOMATED DIFF COMPLETE BLOOD COUNT WBC 5.2 10/uL (4.2 - 11.0) RBC 4.62 10/uL (4.20 - 5.40) HEMOGLOBIN 14.1 g/dL (12.0 - 16.0) HEMATOCRIT 40.7 % (37.0 - 47.0) MCV 88.1 fL (81.0 - 101) 3 Clinical Report - Physicians/Mid Levels [facility] Emergency Department [address] [place] [address] Phone #: ext- [phone] 01/26/2020 08:38 Patient: ABBIE OTT Sex: F : 1955 Age: 64y MCH 30.5 pg (27.0 - 34.0) MCHC 34.6 g/dL (31.0 - 36.0) RDW 13.5 % (11.5 - 14.5) PLATELETS 196 10/uL (150 - 450) MPV 9.6 fL (7.4 - 10.4) NEUT 73.2 % (37.0 - 80.0) LYMPH 21.0 L % (25.0 - 40.0) MONO 4.6 % (3.0 - 8.0) EOS 0.0 % (0.0 - 7.0) BASO 0.2 % (0.0 - 2.5) %IG 1.0 H % (0.0 - 0.0) %NRBC 0.0 % (0.0 - 0.0) #NEUT 3.79 10/uL (2.00 - 6.90) #LYMPH 1.09 10/uL (0.60 - 3.40) #MONO 0.24 10/uL (0.00 - 0.90) #EOS 0.00 10/uL (0.00 - 0.70) #BASO 0.01 10/uL (0.00 - 0.20) #IG 0.05 10/uL (0.00 - 0.10) #NRBC 0.00 10/uL (0.00 - 0.00) MANUAL DIFF NOT INDICATED RBC MORPH NOT INDICATEDCMP: (ADAMARIS: 01/26/2020 09:02) ( MsgRcvd 01/26/2020 10:06) Final results Test Result Flag Units (Reference) COMPREHENSIVE METABOLIC PANEL COMPREHENSIVE METABOLIC PANEL SODIUM 132 L mEq/L (134 - 153) POTASSIUM 4.0 mEq/L (3.6 - 5.0) CHLORIDE 96 L mEq/L (98 - 107) CO2 25 MEQ/L (22 - 30) GLUCOSE 162 H MG/DL (65 - 110) BUN 13 MG/DL (7 - 21) CREATININE 0.7 MG/DL (0.7 - 1.5) BUN/CREAT 19 (8 - 27) TOTAL PROTEIN 6.1 L G/DL (6.3 - 8.2) ALBUMIN 3.7 L G/DL (3.9 - 5.0) GLOBULIN 2.4 GM/DL (2.4 - 3.2) A/G RATIO 1.5 (0.8 - 2.0) CALCIUM 8.4 MG/DL (8.4 - 10.2) TOTAL BILI 0.7 MG/DL (0.2 - 1.3) ALKALINE PHOS 38 U/L (38 - 126) SGOT/AST 68 H U/L (5 - 40) SGPT/ALT 23 U/L (7 - 56) ANION GAP 11.0 mmol/L (8.0 - 16.0) AGE 64 yrs NON-AA GFR >60 mL/min AFR AMER GFR >60 Male GFR Interprentation 20-49 yrs >60 mL/min Ktvhjm54-10 yrs >56 mL/min Normal 60-69 yrs >49 mL/min Normal 70-79yrs>42 mL/min Normal 80 and above >35 mL/min Normal Female GFRInterpretation 20-39 yrs >60 mL/min Normal 40-49 yrs >58 mL/minNormal 50-59 yrs >51 mL/min Normal 60-69 yrs >45 mL/min Ztahvs25-84 yrs >39 mL/min Normal 80 and above >32 mL/min NormalPT/INR: (ADAMARIS: 01/26/2020 09:02) ( [facility] 09[facility]54) Final results Test Result Flag Units (Reference) PROTIME 13.2 SECONDS (11.0 - 15.5) INR 0.95 (0.93 - 1.23) 4 Clinical Report - Physicians/Mid Levels [facility] Emergency Department [address] [place] [address] Phone #: ext- [phone] 01/26/2020 08:38 Patient: ABBIE OTT Sex: F : 1955 Age: 64y \\BLDo\\INR INTERPRETATION\\BLDx\\ Therapeutic range for Coumadin and related oral anticoagulants. -International Normalized Ratio (INR): 2.0 - 3.0 for Venous Thrombosis, Pulmonary Embolus, Tissue heart valves, Acute PR, Atrial Fibrillation, Valvular heart disease and recurrent Systemic Embolism. -International Normalized Ratio (INR): 2.5 - 3.5 for Mechanical Prosthetic valve. Troponin-T: (ADAMARIS: 01/26/2020 09:02) ( [facility] 01/26/2020 10:06) Final results Test Result Flag Units (Reference) TROPONIN T <0.01 NG/ML (0.00 - 0.10) TROPONIN T0.1 ng/ml Recommended as the clinical threshold value forTroponin T. Chest Portable 1 View: (ADAMARIS: 01/26/2020 08:42) ( [facility] 01/26/2020 09:01) In Progress CHEST PORTABLE Reason(s): shortness of breath, COVID positive TRANSPORTATION: IV? O2? Oxygen?(No) Room: ED.PROGRESS AND PROCEDURESCourse of Care: 10:01/26/20. sepsis protocol initiated. patient's blood work reviewed and wbc normal .however patient has been on kelfex for positive blood culture which gre staph epidermidis. she wasgiven Clindamycin 900 mg IVPB for positive blood culture 10:21 01/26/20. CXR read by the radiologist as positive KERRY pneumonia. will give her zithromax IV as well to cover atypical organism 10:25 01/26/20. discussed the case with agronomy research manager hospitalist Cass BORDEN who accepted the patient. Critical care performed (60 minutes). Time is exclusive of separately billable procedures. Time includes: direct patient care, patient reassessment, coordination of patient care, interpretation of data (laboratory data, pulse oximetry and chest xrays), review of patient's medical records, medical consultation and documentation of patient care- see progress notes. Procedures included in critical care time: peripheral IV placement- see progress notes. Discussed case with hospitalist, (10:28). Reviewed test results. Agreed upon treatment plan and decision to admit. Health care provider will see patient in hospital. Disposition: Condition: good and stable. Admitted due to failed outpatient therapy and anticipated length of stay greater than 2 midnights. Admit decision based on need for further evaluation, monitoring and IV hydration, antibiotics and medications.CLINICAL IMPRESSION Acute fever. Bacteremia. 5 Clinical Report - Physicians/Mid Levels [facility] Emergency Department [address] [place] [address] Phone #: ext- [phone] 01/26/2020 08:38 Patient: ABBIE OTT Sex: F : 1955 Age: 64y Bacterial and lobar pneumonia. No hypoxemia, respiratory failure or sepsis.(Electronically signed by Renée Crews 01/26/2020 16:31) Name Value Range Interpretation Code Description Data Makayla rce(s) Supporting Document(s) ID Date Data Source [id number] 01/26/2020 01:00:00 PM EST [facility] Name Value Range Interpretation Code Description Data Makayla rce(s) Supporting Document(s) COVID-19 [facility]ENTER [facility] and reported [facility]. ID Date Data Source [id number] 01/26/2020 01:00:00 PM [facility] Name Value Range Interpretation Code Description Data Makayla rce(s) Supporting Document(s) COVID-19 [facility] This lab was [facility] and reported by [facility]. ID Date Data Source [id number] 01/26/2020 01:37:00 PM EST [facility] Name Value Range Interpretation Code Description Data Makayla rce(s) Supporting Document(s) COVID-19 DETECTED [facility] al COVID-19 REENTER DETECTED [facility] { PROCEDURAL CONTROL VALID KIT LOT # _[id number] 01/26/20.1332.CM . KIT EXP DATE _05/14/20 01/26/20.1332.CM . NORMAL RANGE IS NOT DETECTEDNEGATIVE RESULTS SHOULD BE TREATED PREUMPTIVE AND, IF INCONSISTENT WITHCLINICAL SIGNS AND SYMPTOMS OR NECESSARY FOR PATIENT MANAGEMENT, SHOULD BETESTED WITH DIFFERENT AUTHORIZED OR CLEARED MOLECULAR TESTS. NEGATIVE RESULTSDO NOT PRECLUDE SARS-CoV-2 INFECTION AND SHOULD NOT BE USED THE SOLE BASISFOR PATIENT MANAGEMENT DECISIONS. ID Date Data Source [id number] 01/30/2020 02:27:00 PM EST [facility] Name Value Range Interpretation Code Description Data Makayla rce(s) Supporting Document(s) CULTURE URINE [facility] spital _CULTURE URINE_$$[id number]$$[id number]$$[id number]$$[id number]$$275906$$334481$$575408$$295294$$366610$$ 636023$$869123$$227856$$814249$$019913$$364168$$346385$$660882$$079447$$[id number]$$ 069578$$240508$$240713$$667127$$051125$$096757$$755085$$[id number] -- Continued on next page --Patient: ZURDO Shetty Order: [id number] Page 2Culture: CULTURE URINE Status: Final ==== -- Continued on next page --Patient: ZURDO Shetty Order: [id number] Page 2Culture: CULTURE URINE Status: Prelim =====$$[id number]$$[id number] DATE/TIME: 01/30/2020 09:06Culture: CULTURE URINE Status: FinalUrine Culture,Comprehensive: P1No growth in 36 - 48 hours. Previous result entered on 01/29/2020 07:01 ET No growth after 18-24 hours.P1 Test performed by: [facility] Kaylan RAMOS #: [id number] [address] [place] [id number] [facility] [phone] Director : Newton Chandler MD NPI #:Lab Di antoinette : 01/29/20.0800.XMT.SENT REF 01/30/20.1427.XMT.SENT REF ID Date Data Source [id number] 01/26/2020 10:50:00 AM EST [facility] Name Value Range Interpretation Code Description Data Makayla rce(s) Supporting Document(s) [facility]IS [facility] URINALYSIS SOURCE Clean Catch [facility] COLOR yellow NORMAL: Yellow [facility] CLARITY clear NORMAL: Clear [facility] Specific gravity of Urine by Test strip 1.015 1.001 - 1.030 [facility] 7 5 - [facility] Gl[facility] [Mass/volume] in Urine by Test strip NORM NORMAL: Negat [facility] Bilirubin.total [Presence] in Urine by Test strip NEG NORMAL: Negative [facility] Ketones [Presence] in Urine by Test strip NEG NORMAL: Negative [facility] Protein [Mass/volume] in Urine by Test strip NEG NORMAL: Negat [facility] Nitrite [Presence] in Urine by Test strip NEG NORMAL: Negative [facility] BLOOD NEG NORMAL: Negative [facility] Leukocyte esterase [Presence] in Urine by Test strip NEG RPIYA L: Negative [facility] Urobilinogen [Mass/volume] in Urine by Test strip NOR less carline n 1.0 mg/dL [facility] MICROSCOPIC Not Indicate [facility] ID Date Data Source [id number] 02/01/2020 09:22:00 AM [facility] [address] Name Value Range Interpretation Code Description Data Makayla rce(s) Supporting Document(s) Bacteria identified in Blood by Culture [facility] NO GROWTH AFTER 5 DAYS ID Date Data Source [id number] 02/07/2020 05:54:00 PM [facility] Name Value Range Interpretation Code Description Data Makayla rce(s) Supporting Document(s) CULTURE BLOOD [facility] _CULTURE BLOOD_ TEST PERFORM ED AT [address] [address] CLIA# [id number] SEE SCANNED REPORT{ PRELIM ID Date Data Source [id number] 02/07/2020 05:54:00 PM [facility] Name Value Range Interpretation Code Description Data Makayla rce(s) Supporting Document(s) CULTURE BLOOD [facility] _CULTURE BLOOD_ TEST PERFORM ED AT [address] [address] CLIA# [id number] SEE SCANNED REPORT{ PRELIM ID Date Data Source [id number] 01/26/2020 01:25:00 PM [facility] Name Value Range Interpretation Code Description Data Makayla rce(s) Supporting Document(s) C reactive protein [Mass/volume] in Serum or Plasma by High sensitivity method 59.41 MG/L 1.00 - 3.00 H [facility]/S HS-CRP CUT-OFF: RELATIVE RISK: <1.0 mg/L Low 1.0 - 3.0 mg/L Average >3.0 mg/L High Optimally, the average of HS-CRP results repeated two weeks apart should be used for risk assessment. ID Date Data Source [id number] 01/26/2020 11:45:00 AM [facility] Name Value Range Interpretation Code Description Data Makayla rce(s) Supporting Document(s) Ferritin [Mass/volume] in Serum or Plasma 770.4 ng/mL 3.0 - 105 H [facility] ID Date Data Source [id number] 01/26/2020 10:19:00 AM [facility] Name Value Range Interpretation Code Description Data Makayla rce(s) Supporting Document(s) Lactate [Moles/volume] in Serum or Plasma 2.2 MMOL/L 0.2 - 2.2 [facility] ID Date Data Source [id number] 01/26/2020 10:06:00 AM [facility] Value Range Interpretation Code Description Data Makayla rce(s) Supporting Document(s) TROPONIN T <0.01 NG/ML 0.00 - 0.10 [facility] ospital TROPONIN T0.1 ng/ml Recommended as the c linical threshold value forTroponin T. ID Date Data Source [id number] 01/26/2020 10:06:00 AM [facility] Name Value Range Interpretation Code Description Data Makayla rce(s) Supporting Document(s) COMPREHENSIVE METABOLIC PANEL [facility] COMPREHENSIVE METABOLIC PANEL Sodium [Moles/volume] in Serum or Plasma 132 mEq/L 134 - 153 L [facility] Potassium [Moles/volume] in Serum or Plasma 4.0 mEq/L 3.6 - 5.0 [facility] Chloride [Moles/volume] in Serum or Plasma 96 mEq/L 98 - 107 L [facility] Carbon dioxide, total [Moles/volume] in Serum or Plasma 25 MEQ/L 22 - 30 [facility] Glucose [Mass/volume] in Serum or Plasma 162 MG/DL 65 - 110 H [facility] BUN 13 MG/DL 7 - 21 [facility] Creatinine [Mass/volume] in Serum or Plasma 0.7 MG/DL 0.7 - 1.5 [facility] BUN/CREAT 19 8 - 27 [facility] al Protein [Mass/volume] in Serum or Plasma 6.1 G/DL 6.3 - 8.2 L [facility] Albumin [Mass/volume] in Serum or Plasma 3.7 G/DL 3.9 - 5.0 L [facility] Globulin [Mass/volume] in Serum by calculation 2.4 GM/DL 2.4 - 3.2 [facility] A/G RATIO 1.5 0.8 - 2.0 [facility] Calcium [Mass/volume] in Serum or Plasma 8.4 MG/DL 8.4 - 10.2 [facility] Bilirubin.total [Mass/volume] in Serum or Plasma 0.7 MG/DL 0.2 - 1.3 [facility] Alkaline phosphatase [Enzymatic activity/volume] in Serum or Plasma 38 U/L 38 - 126 [facility] Aspartate aminotransferase [Enzymatic activity/volume] in Serum or Plasma 68 U/L 5 - 40 H [facility] Alanine aminotransferase [Enzymatic activity/volume] in Seru m or Plasma 23 U/L 7 - 56 [facility] Anion gap 3 in Serum or Plasma 11.0 mmol/L 8.0 - 16.0 [facility] AGE 64 yrs [facility] al NON-AA GFR >60 mL/min [facility] ital AFR AMER GFR >60 [facility] Male GFR In terprentation 20-49 yrs >60 mL/min Normal 50-59 yrs >56 mL/min Normal 60-69 yrs >49 mL/min Normal 70-79yrs >42 mL/min Normal 80 and above >35 mL/min Normal Female GFR Interpretation 20-39 yrs >60 mL/min Normal 40-49 yrs >58 mL/min Normal 50-59 yrs >51 mL/min Normal 60-69 yrs >45 mL/min Normal 70-79 yrs >39 mL/min Normal 80 and above >32 mL/min Normal ID Date Data Source [id number] 01/26/2020 09:54:00 AM [facility] Name Value Range Interpretation Code Description Data Makayla rce(s) Supporting Document(s) Prothrombin time (PT) 13.2 SECONDS 11.0 - 15.5 [facility] INR in Platelet poor plasma by Coagulation assay 0.95 0.93 - 1. 23 [facility] \\BLDo\\INR INTERPRETATION\\BLDx\\ Therapeutic range for Coumadin and related oral anticoagulants. - International Normalized Ratio (INR): 2.0 - 3.0 for Venous Thrombosis, Pulmonary Embolus, Tissue heart valves, Acute PR, Atrial Fibrillation, Valvular heart disease and recurrent Systemic Embolism. -International Normalized Ratio (INR): 2.5 - 3.5 for Mechanical Prosthetic valve. ID Date Data Source [id number] 01/26/2020 09:43:00 AM [facility] Name Value Range Interpretation Code Description Data Makayla rce(s) Supporting Document(s) CBC W/AUTOMATED DIFF [facility] COMPLETE BLOOD COUNT Leukocytes [#/volume] in Blood by Automated count 5.2 10^3/uL 4.2 - 1 1.0 [facility] Erythrocytes [#/volume] in Blood by Automated count 4.62 10^6/uL 4. 20 - 5.40 [facility] Hemoglobin [Mass/volume] in Blood 14.1 g/dL 12.0 - 16.0 [facility] Hematocrit [Volume Fraction] of Blood by Automated count 40.7 % 3 7.0 - 47.0 [facility] Erythrocyte mean corpuscular volume [Entitic volume] by Auto mated count 88.1 fL 81.0 - 101 [facility] Erythrocyte mean corpuscular hemoglobin [Entitic mass] by Automated count 30.5 pg 27.0 - 34.0 [facility] Erythrocyte mean corpuscular hemoglobin concentration [Mass/volume] by Automated count 34.6 g/dL 31.0 - 36.0 [facility] Erythrocyte distribution width [Ratio] by Automated count 13.5 % 11.5 - 14.5 [facility] Platelets [#/volume] in Blood by Automated count 196 10^3/uL 150 - 45 0 [facility] Platelet mean volume [Entitic volume] in Blood by Automated count 9.6 fL 7.4 - 10.4 [facility] Neutrophils/100 leukocytes in Blood by Automated count 73.2 % 37. 0 - 80.0 [facility] Lymphocytes/100 leukocytes in Blood by Manual count 21.0 % 25.0 - 40.0 L [facility] Monocytes/100 leukocytes in Blood by Automated count 4.6 % 3.0 - 8.0 [facility] Eosinophils/100 leukocytes in Blood by Automated count 0.0 % 0.0 - 7.0 [facility] Basophils/100 leukocytes in Blood by Automated count 0.2 % 0.0 - 2.5 [facility] %IG 1.0 % 0.0 - [facility].0 [facility] % 0.0 - 0.0 [facility] al Neutrophils [#/volume] in Blood by Automated count 3.79 10^3/uL 2.00 - 6.90 [facility] Lymphocytes [#/volume] in Blood by Automated count 1.09 10^3/uL 0.60 - 3.40 [facility] Monocytes [#/volume] in Blood by Automated count 0.24 10^3/uL 0.00 - 0.90 [facility] Eosinophils [#/volume] in Blood by Automated count 0.00 10^3/uL 0.00 - 0.70 [facility] Basophils [#/volume] in Blood by Automated count 0.01 10^3/uL 0.00 - 0.20 [facility] #IG 0.05 10^3/uL 0.00 - 0.10 [facility] #NRBC 0.00 10^3/uL 0.00 - 0.00 [facility] MANUAL DIFF NOT INDICATED [facility] RBC MORPH NOT INDICATED [facility] spital ID Date Data Source [id number] 01/20/2020 06:17:00 AM EST [facility] 1 OrderSheet [facility] Emergency Department [address] [place] [address] Phone #: ext- [phone] 01/20/2020 06:17 Patient: ABBIE OTT Sex: F : 1955 Age: 64yWEIGHT:113.3 kg (S) HEIGHT:64 inches (S) BMI:42.9ALLERGIES: PenicillinsCHIEF COMPLAINT: headache, nausea, nasal congestion, chills, cough, headache, nausea, nasalcongestion, chills, coughDIAGNOSIS: Upper respiratory infection, Upper respiratory infection, BronchitisLAB ORDERSOrder Description Priority Entered Acknowledged InitialedUrinalysis (Clean STAT 06:48 01/20/2020 07:08 Linnetteatch) Riley Burgos RN Physician;Blood Culture STAT 06:48 01/20/2020 07:36 [id number] X2 (Sched Riley Ricardo RN06:48 01/20/2020) Physician;Blood Culture STAT 06:48 01/20/2020 07:08 [id number] X2 (Sched Riley Burgos RN06:58 01/20/2020) Physician;CMP STAT 06:48 01/20/2020 07:09 Gerardo Burgos RN Physician;CBC w Diff STAT 06:48 01/20/2020 07:09 Gerardo Burgos RN Physician;Influenza Nasal A B STAT 06:48 01/20/2020 07:09 Gerardo Burgos RN Physician;CORONAVIRUS STAT 06:49 01/20/2020 07:09 DavidenCOVID-19 Riley Burgos RN(Symptomatic as Physician;Defined by CDC)(01/17/20) (FirstTest) (NotHospitalized) (Not) (NotResident inCongregate CareSetting) (NotEmployed inHealthcare Setting) 2 OrderSheet [facility] Emergency Department [address] [place] [address] Phone #: ext- [phone] 01/20/2020 06:17 Patient: ABBIE OTT [facility]#: [id number] Sex: F : 1955 Age: 64yDIAGNOSTIC STUDY ORDERSOrder Description Priority Entered Acknowledged InitialedChest Portable 1 STAT 06:48 01/20/2020 07:09 Geoffrey Burgos RN(Oxygen?(No)) Physician; Reason for Study: Cough, FeverChest 2 View STAT 07:33 01/20/2020 Ack'd: 07:37 08:02 Roxanna(Oxygen?(No)) Irvin Landin Jennifer Hagenston RN M.D.; R.N. Reason for Study: Cough, FeverMEDICATION/IV/DRIP/FLUID ORDERSOrder Description Priority Entered Acknowledged InitialedGENERAL ORDERSOrder Description Priority Entered Acknowledged Initialed[Electronically signed by Leela Gonzalez R.N. (09:13 01/20/2020)][Electronically signed by Irvin Landin M.D. (09:14 01/20/2020) ][Electronically signed by Riley Naranjo Physician (21:52 01/21/2020)][Electronically locked by Leela Gonzalez R.N. (09:13 01/20/2020)] Name Value Range Interpretation Code Description Data Makayla rce(s) Supporting Document(s) ID Date Data Source [id number] 01/20/2020 06:17:00 AM EST [facility] 1 Medication Reconciliation Report [facility] Emergency Department [address] [place] [address] Phone #: [phone]- [phone] 01/20/2020 06:17 Patient: ABBIE OTT Sex: F : 1955 Age: 64yWeight: 113.3 kgHeight/Length: 64 in.BMI: 42.9ALLERGIES: PenicillinsThe patient's Home Medications are listed below:CONTINUE TAKING THE FOLLOWING MEDICATIONS: Atorvastatin Calcium Oral 20 mg, daily Losartan Potassium-HCTZ Oral Multivitamin Oral 1 TAB, dailyThe s ource(s) of the original Home Medication information:patientThe following Medications were given to the patient in the Emergency Department:None.The following Medications were prescribed to the patient:Tessalon Perles 100 mg capsule Take 1 capsule three times a day for 5 days -- Dispense 15 capsule.Refills: 1. Substitution permitted.Pharmacy - [id number] - [address] ; [place], [place] [id number]. . -- Irvin Landin M.D. Name Value Range Interpretation Code Description Data [facility](s) Supporting Document(s) ID Date Data Source [id number] 01/20/2020 06:17:00 AM [place] [address] Medication Administration Record [facility] Emergency Department [address] [place] [address] Phone #: ext- [phone] 01/20/2020 06:17 Patient: ABBIE OTT Sex: F : 1955 Age: 64yWeight: 113.3 kgHeight/Length: 64 inBMI: 42.9ALLERGIES: PenicillinsDate/Time Medication Administered Medication Ordered Name Value Range Interpretation Code Description Data [facility](s) Supporting Document(s) ID Date Data Source [id number] 01/20/2020 06:17:00 AM [facility] 1 General Instructions [facility] Emergency Department [address] [place] [address] Phone #: ext- [phone] 01/20/2020 06:17 Patient: ABBIE OTT Sex: F : 1955 Age: 64y Acute viral (presumed) rhinitis and laryngitis (Pending Flu / COVID).(Electronically signed by Riley Naranjo, Physician 01/21/2020 21:52) Acute viral bronchitis. No viral (influenza) bronchitis. Acute viral rhinitis. Rule out Covid-19.INSTRUCTIONS (PLEASE QUARANTINE AT HOME UNTIL WE CALL YOU WITH A NEGATIVE COVID TEST RESULT). Warnings: Further evaluation is necessary. It is very important to follow up with a healthcare provider. GENERAL WARNINGS: Return or contact your physician immediately if your condition worsens or changes unexpectedly, if not improving as expected, or if other problems arise. Specifically return if pain, vomiting, bleeding, breathing difficulty or fever greater than 102 degrees F and not controlled by acetaminophen or ibuprofen worsens. Your Current Medications: Your current home medications have been reviewed. CONTINUE TAKING THE FOLLOWING MEDICATIONS: Atorvastatin Calcium Oral : 20 mg daily. Losartan Potassium-HCTZ Oral. Multivitamin Oral : 1 TAB daily. Prescription Medications: Tessalon Perles 100 mg capsule Take 1 capsule three times a day for 5 days -- Dispense 15 capsule. 2 General Instructions [facility] Emergency Department [address] [place] [address] Phone #: ext- [phone] 01/20/2020 06:17 Patient: ABBIE OTT Sex: F : 1955 Age: 64y Refills: 1. Substitution permitted. Pharmacy - [id number] - [address] ; [place], [place] [phone]. FaxNumber: . Follow-up: Return to the emergency department as needed. Follow up with your healthcare provider in seven days even if well. Call for an appointment. Reason for referral: evaluation and treatment. Summary of care provided to patient via paper. Understanding of the discharge instructions verbalized by patient. Expected course of illness, discharge instructions, activity level, diet, prescriptions x1, follow-up appointment and risks and benefits of treatment reviewed with patient and understanding verbalized. Agrees to plan of care. ADDITIONAL INFORMATIONViral Bronchitis (Adult) 3 General Instructions [facility] Emergency Department [address] [place] [address] Phone #: ext- [phone] 01/20/2020 06:17 Patient: ABBIE OTT Sex: F : 1955 Age: 64yYou have a viral bronchitis. Bronchitis is inflammation and swelling of the lining of the lungs. This isoften caused by an infection. Symptoms include a dry, hacking cough that is worse at night. Thecough may bring up yellow-green mucus. You may also feel short of breath or wheeze. Othersymptoms may include tiredness, chest discomfort, and chills.Bronchitis that is caused by a virus is not treated with antibiotics. Instead, medicines may be given tohelp relieve symptoms. Symptoms can last up to 2 weeks, although the cough may last much longer.This illness is contagious during the first few days and is spread through the air by coughing andsneezing, or by direct contact (touching the sick person and then touching your own eyes, nose, ormouth).Most viral illnesses resolve within 10 to 14 days with rest and simple home remedies, although theyma y sometimes last for several weeks.Home care If symptoms are severe, rest at home for the first 2 to 3 days. When you go back to your usual activities, don't let yourself get too tired. Do not smoke. Also avoid being exposed to secondhand smoke. You may use uirn-wjc-kinqekq medicine to control fever or pain, unless another pain medicine was prescribed. If you have chronic liver or kidney disease or have ever had a stomach ulcer or gastrointestinal bleeding, talk with your healthcare provider before using these medicines. Also talk to your provider if you are taking medicine to prevent blood clots. Aspirin should never be given to anyone younger than 18 years of age who is ill with a viral infection or fever. It may cause severe liver or brain damage. Your appetite may be poor, so a light diet is fine. Avoid dehydration by drinking 6 to 8 glasses of fluids per day (such as water, soft drinks, sports drinks, juices, tea, or soup). Extra fluids will help loosen secretions in the nose and lungs. Chsm-fmk-myjfibt cough, cold, and sore-throat medicines will not shorten the length of the illness, but they may help to reduce symptoms. Don't use decongestants if you have high blood pressure.Follow-up careFollow up with your healthcare provider, or as advised. If you had an X-ray or ECG(electrocardiogram), a specialist will review it. You will be notified of any new findings that may affectyour care.If you are age 65 or older, or if you have a chronic lung disease or condition that affects your immunesystem, or you smoke, ask your healthcare provider about getting a pneumococcal vaccine and a 4 General Instructions [facility] Emergency Department [address] [place] [address] Phone #: ext- [phone] 01/20/2020 06:17 Patient: ABBIE OTT [facility]#: [id number] Sex: F : 1955 Age: 64yyearly flu shot (influenza vaccine).When to seek medical adviceCall your healthcare provider right away if any of these occur: Fever of 100.4F (38C) or higher, or as directed by your healthcare provider Coughing up increased amounts of colored sputum Weakness, drowsiness, headache, facial pain, ear pain, or a stiff neckCall 911Call 911 if any of these occur: Coughing up blood Worsening weakness, drowsiness, headache, or stiff neck Trouble breathing, wheezing, or pain with breathing [id number] [employer] [place] [address]. All rights reserved. This information is not intended as asubstitute for professional medical care. Always follow your healthcare professional's instructions.Viral Upper Respiratory Illness (Adult) 5 General Instructions [facility] Emergency Department [address] [place] [address] Phone #: ext- [phone] 01/20/2020 06:17 Patient: ABBIE OTT Sex: F : 1955 Age: 64yYou have a viral upper respiratory illness (URI), which is another term for the common cold. Thisillness is contagious during the first few days. It is spread through the air by coughing and sneezing. Itmay also be spread by direct contact (touching the sick person and then touching your own eyes,nose, or mouth). Frequent handwashing will decrease risk of spread. Most viral illnesses go awaywithin 7 to 10 days with rest and simple home remedies. Sometimes the illness may last for severalweeks. Antibiotics will not kill a virus, and they are generally not prescribed for this condition.Home care If symptoms are severe, rest at home for the first 2 to 3 days. When you resume activity, don't let yourself get too tired. 6 General In structions [facility] Emergency Department [address] [place] [address] Phone #: ext- [phone] 01/20/2020 06:17 -- Patient: [facility]BIE OTT [facility] [id number] Sex: F : 1955 Age: 64y Don't smoke. If you need help stopping, talk with your healthcare provider. Avoid being exposed to cigarette smoke (yours or others'). You may use acetaminophen or ibuprofen to control pain and fever, unless another medicine was prescribed. If you have chronic liver or kidney disease, have ever had a stomach ulcer or gastrointestinal bleeding, or are taking blood-thinning medicines, talk with your healthcare provider before using these medicines. Aspirin should never be given to anyone under 18 years of age who is ill with a viral infection or fever. It may cause severe liver or brain damage. Your appetite may be poor, so a light diet is fine. Stay well hydrated by drinking 6 to 8 glasses of fluids per day (water, soft drinks, juices, tea, or soup). Extra fluids will help loosen secretions in the nose and lungs. Tbto-sln-biflnhm cold medicines will not shorten the length of time you're sick, but they may be helpful for the following symptoms: cough, sore throat, and nasal and sinus congestion. If you take prescription medici myriam, ask your healthcare provider or pharmacist which youk-noi-cowgkcy medicines are safe to use. (Note: Don't use decongestants if you have high blood pressure.)Follow-up careFollow up with your healthcare provider, or as advised.When to seek medical adviceCall your healthcare provider right away if any of these occur: Cough with lots of colored sputum (mucus) Severe headache; face, neck, or ear pain Difficulty swallowing due to throat pain Fever of 100.4F (38C) or higher, or as directed by your healthcare provider Call 911 Call 911 if any of these occur: Chest pain, shortness of breath, wheezing, or difficulty breathing Coughing up blood Very severe pain with swallowing, especially if it goes along with a muffled voice [employer]. [address] [place] [address]. All rights reserved. This information is not intended as a 7 General Instructions [facility] Emergency Department [address] [place] [address] Phone #: ext- [phone] 01/20/2020 06:17 Patient: ABBIE OTT Sex: F : 1955 Age: 64ysubstitute for professional medical care. Always follow your healthcare professional's instructions. Prevention steps for People with confirmed or suspected COVID-19 (including persons under investigation) who do not need to be hospitalized And People with confirmed COVID- 19 who were hospitalized and determined to be medically stable to go home Your healthcare provider and public health staff will evaluate whether you can be cared for at home. If it isdetermined that you do not need to be hospitalized and can be isolated at home, you will be monitored by staff [facility] or [facility]. You should follow the prevention steps below until a healthcare provider [facility] or [facility] says you can return to your normal activities. Stay home except to get medical care People who are mildly ill with COVID-19 are able to isolate at home during their illness. You should restrict activities outside yourhome, except for getting medical care. Do not go to work, school, or public areas. Avoid using public transportation, ride-sharing, ortaxis. Separate yourself from other people and animals in your home People: As much as possible, you should stay in a specificroom and away from other people in your home. Also, you should use a separate bathroom, if available.Animals: You should restrict contact with pets and other animals while you are sick with COVID-19, just like you would around otherpeople. Although there have not been reports of pets or other animals becoming sick with COVID-19, it is still recommended thatpeople sick with COVID-19 limit contact with animals until more information is known about the virus. When possible, have anothermember of your household care for your animals while you are sick. If you are sick with COVID- 19, avoid contact with your pet,including petting, snuggling, being kissed or licked, and sharing food. If you must care for your pet or be around animals while you aresick, wash your hands before and after you interact with pets and wear a facemask. See https:// www.cdc.gov/coronavirus/2019-ncov/faq.html#1565-wTqS-evf-animals for more information. Call ahead before visiting your doctor If you have a medical appointment, call the healthcare provider and tell them that you have or may have COVID-19. This will helpthe healthcare provider's office take steps to keep other people from getting infected or exposed. Wear a facemask You should wear a facemask when you are around other people {e.g., sharing a room or vehicle} or pets and before you enter [facility] provider's office. If you are not able to wear a facemask {for example, because it causes trouble breathing}, thenpeople who live with you should not stay in the same room with you, or they should wear a facemask if they enter your room. Cover your coughs and sneezes Cover your mouth and nose with a tissue when you cough or sneeze. Throw used tissues in a lined trash can. Immediately washyour hands with soap and water for at least 20 seconds or, if soap and water are not available, clean your hands with analcohol-based hand coiled coil inspector that contains at least 60% alcohol. Clean your hands often Wash your hands often with soap and water for at least 20 seconds, especially after blowing your nose, coughing, or sneezing;going to the bathroom; and before eating or preparing food. If soap and water are not readily available, use an alcohol-based handsanitizer with at least 60% alcohol, covering all surfaces of your hands and rubbing them together until they feel dry. Soap and water are the best option if hands are visibly dirty. Avoid touching your eyes, nose, and mouth with unwashedhands. 8 General Instructions [facility] Emergency Department [address] [place] [address] Phone #: ext- [phone] 01/20/2020 06:17 Patient: ABBIE OTT Sex: F : 1955 Age: 64yFlu Like Symptoms / Coronavirus Exposure - 30a Page 1 of 2Avoid sharing personal household itemsYou should not share dishes, drinking glasses, cups, eating utensils, towels, or bedding with other people or pets in yourhome. After using these items, they should be washed thoroughly with soap and water.Clean all "high-touch" surfaces everydayHigh touch surfaces include counters, tabletops, doorknobs, bathroom fixtures, toilets, phones, keyboards, tablets, and bedsidetables. Also, clean any surfaces that may have blood, stool, or body fluids on them. Use a household cleaning spray or wipe,according to the label instructions.Labels contain instructions for safe and effective use of the cleaning product including precautions you should take when applyingthe product, such as wearing gloves and making sure you have good ventilation during use of the product.Monitor your symptomshttps://www.tsystem.com/index.php Seek prompt medical attention if your illness is worsening {e.g., difficulty breathing}. Before seeking care, call your healthcareprovider and tell them that you have, or are being evaluated for, COVID-19. Put on a facemask before you enter the facility.These steps will help the healthcare provider's office to keep other people in the office or waiting room from getting infected orexposed. Ask your healthcare provider to call the local or state health department. Persons who are placed under activemonitoring or facilitated self-monitoring should follow instructions provided by their local health department or occupational healthprofessionals, as appropriate. When working with your local health department check their available hours.If you have a medical emergency and need to call 911, notify the dispatch personnel that you have, or are being evaluated forCOVID-19. If possible, put on a facemask before emergency medical services arrive.Discontinuing home isolationPatients with confirmed COVID-19 should remain under home isolation precautions until the risk of secondary transmission toothers is thought to be low. The decision to discontinue home isolation precautions should be made on a ugfa-yk-dltz basis, inconsultation with healthca reproviders and state and local health departments.Contacts 2019 [employer].Online informationhttps://www.cdc.gov/coronavirus/2019-ncov/about/index.html Content source: National Center for Immunization and Respiratory Diseases (NCIRD), Division of Viral Diseases 9 General Instructions [facility] Emergency Department [address] [place] [address] Phone #: ext- [phone] 01/20/2020 06:17 Patient: ABBIE OTT Sex: F : 1955 Age: 64y Recommended precautions for household members, intimate partners, and caregivers in a nonhealthcare setting1 of A patient with symptomatic laboratory-confirmed COVID-19 or A patient under investigationHousehold members, intimate partners, and caregivers in a nonhealthcare setting may have close contact2 with aperson with symptomatic, laboratory-confirmed COVID-19 or a person under investigation. Close contacts shouldmonitor their health; they should call their healthcare provider right away if they develop symptoms suggestive of COVID-19 {e.g., fever, cough, shortness of breath} {see Interim [place] Guidance for Risk Assessment and Public Health Management of Persons with Potential Coronavirus Disease 2019 {COVID-19} Exposure in Travel-associated or Community Settings.}Close contacts should also follow these recommendations: Make sure that you understand and can help the patient follow their healthcare provider's instructions for medication{s} and care. You should help the patient with basic needs in the home and provide support for getting groceries, prescriptions, and other personal needs. Monitor the patient's symptoms. If the patient is getting sicker, call his or her healthcare provider and tell them that the patient has laboratory-confirmed COVID-19. This will help the healthcare provider's office take steps to keep other people in the office or waiting room from getting infected. Ask the healthcare provider to call the local or state health department for additional guidance. If the patient has a medical emergency and you need to call 911, notify the dispatch personnel that the patient has, or is being evaluated for COVID-19. Household members should stay in another room or be from the patient as much as possible. Household members should use a separate bedroom and bathroom, if available. Prohibit visitors who do not have an essential need to be in the home. Household members should care for any pets in the home. Do not handle pets or other animals while sick. For more information, see COVID-19 and Animals. Make sure that shared spaces in the home have good air flow, such as by an air conditioner or an opened window, weather permitting. Perform hand hygiene frequently. Wash your hands often with soap and water for at least 20 seconds or use an alcohol-based hand coiled coil inspector that contains 60 to 95% alcohol, covering all surfaces of your hands and rubbing them together until they feel dry. Soap and water should be used preferentially if hands are visibly dirty.Avoid touching your eyes, nose, and mouth with unwashed hands. The patient should wear a facemask when around other people, except when unable {for example, because it causes trouble breathing}. You, as the caregiver should always wear a mask, regardless if the patient has one on or not whenever you are in the same room as the patient. Wear a disposable facemask and gloves when you touch or have contact with the patient's blood, stool, or body fluids, such as saliva, sputum, nasal mucus, vomit, urine. Throw out disposable facemasks and gloves after using them. Do not reuse. When removing personal protective equipment, first remove and dispose of gloves. Then, immediately clean your hands with soap and water or alcohol-based hand coiled coil inspector. Next, remove and dispose of facemask, and immediately clean your hands again with soap and water or alcohol-based hand coiled coil inspector. Avoid sharing household items with the patient. You should not share dishes, drinking glasses, cups, eating utensils, towels, bedding, or other items. After the patient uses these items, you should wash them thoroughly {see below "Wash laundry thoroughly"}. 10 General Instructions [facility] Emergency Department [address] [place] [address] Phone #: ext- [phone] 01/20/2020 06:17 Patient: ABBIE OTT Sex: F : 1955 Age: 64y Flu Like Symptoms / Coronavirus Exposure - 30a Page 2 of 2 Clean all "high-touch" surfaces, such as counters, tabletops, doorknobs, bathroom fixtures, toilets, phones, keyboards, tablets, and bedside tables, every day. Also, clean any surfaces that may have blood, stool, or body fluids on them. Use a household cleaning spray or wipe, according to the label instructions. Labels contain instructions for safe and effective use of the cleaning product including precautions you should take when applying the product, such as wearing gloves and making sure you have good ventilation during use of the product. Wash laundry thoroughly. Immed iately remove and wash clothes or bedding that have blood, stool, or body fluids on them. Wear disposable gloves while handling soiled items and keep soiled items away from your body. Clean your hands {with soap and water or an alcohol-based hand coiled coil inspector} immediately after removing your gloves. https://www.[employer]/index.php Read and follow directions on labels of laundry or clothing items and detergent. In general, using a normal laundry detergent according to washing machine instructions and dry thoroughly using the warmest temperatures recommended on the clothing label. Place all used disposable gloves, facemasks, and other contaminated items in a lined container before disposing of them with other household waste. Clean your hands {with soap and water or an alcohol-based hand coiled coil inspector} immediately after handling these items. Soap and water should be used preferentially if hands are visibly dirty. Discuss any additional questions with your state or local health department or healthcare provider. Check available hours when contacting your local health department.Contacts [employer] information https://www.cdc.gov/coronavirus/2019-ncov/about/index.htmlContent source: National Center for Immunization and Respiratory Diseases (NCIRD), Division of Viral DiseasesFootnotes 1Home healthcare personnel should refer to I janetm Infection Prevention and Control Recommendations for Patients with Known or Patients Under Investigationfor Coronavirus Disease 2019 (COVID-19) in a Healthcare Setting. 2Close contact is defined as-1. being within approximately 6 feet (2 meters) of a COVID-19 case for a prolonged period of time; close contact can occur while caring for, living with, visiting, or sharing a health care waiting area or room with a COVID-19 case - or - 11 General Instructions [facility] Emergency Department [address] [place] [address] Phone #: ext- [phone] 01/20/2020 06:17 Patient: ABBIE OTT Sex: F : 1955 Age: 64y2. having direct contact with infectious secretions of a COVID-19 case (e.g., being coughed on You have been given the following additional information: Bronchitis, No Antibiotic (Adult) URI, Viral, No Abx (Adult) COVID-19(Electronically signed by Irvin Landin M.D. 01/20/2020 09:14) Name Value Range Interpretation Code Description Data Makayla rce(s) Supporting Document(s) ID Date Data Source [id number] 01/20/2020 06:17:00 AM EST [facility] 1 Clinical Report - Nurses [facility] Emergency Department [address] [place] [address] Phone #: ext- [phone] 01/20/2020 06:17 Patient: ABBIE OTT [facility]#: [id number] Sex: F : 1955 Age: 64yTRIAGEArrived by private vehicle. Historian: patient. Accompanied by family.Triage time: 06:01/20/2020. Acuity: LEVEL 3.Chief Complaint: FEVER, COUGH and BODY ACHES.Onset was gradual. Symptoms are constant and still present (3 days ago). She has had chills, fatigue rubina headache. ( dry cough).Treatment JIRA ADMINISTRATOR:None.SEPSIS SCREEN: SIRS SCREEN NEGATIVE. SEPSIS SCREEN NEGATIVE. No suspected or confirmedsigns of infection present. --06:01/20/20 Gerardo Burgos RN06:01/20/20. BP: 122/90 (regular adult cuff) taken on the left arm, via an automated monitor, whilesitting. MAP: 100. HR: 107 (regular). RR: 20 (regular, unlabored and normal). O2 saturation: 95% on roomair. Temp: 1 00.1 F (oral). Pain level now: 710. --06:01/20/20 Gerardo Burgos RN.Weight: 113.3 kg stated. Height/Length: 64 inches Per Patient. BMI: 42.9. --06:01/20/20 ZEINA Concepcion.MedicationsAtorvastatin Calcium Oral 20 mg, daily. Multivitamin Oral 1 TAB, daily. --06:24 01/20/20 Gerardo Burgos RN Losartan Potassium-HCTZ Oral. --06:01/20/20 Gerardo Burgos RN.AllergiesPenicillins. Definite Moderate(hives) --06:01/20/20 Gerardo Burgos RN.PROBLEMS:Hypertension.Hypercholesterolemia. --06:27 01/20/20 Gerardo Burgos RN.Medication/allergy information source: the patient. --:01/20/20 Gerardo Burgos RN.HistoryPAST MEDICAL HX: Immunizations: up-to-date. The patient has had a hysterectomy.SOCIAL HX: Former smoker, end date 02/07/1984. No alcohol use or drug use. No recent travel. Noknown contact with a sick individual. She was offered HIV testing but declined and hepatitis C testing but 2 Clinical Report - Nurses [facility] Emergency Department [address] [place] [address] Phone #: ext- [phone] 01/20/2020 06:17 Patient: ABBIE OTT Sex: F : 1955 Age: 64y declined. She has not traveled outside the [place] Infectious disease exposure: No infectious disease exposure. Patient is not a known carrier of tuberculosis, hepatitis, HIV, MRSA or VRE. Patient is not a known carrier of CRE. SELF HARM ASSESSMENT: Self harm assessment was performed. The patient answered "no" to the question(s) "Have you recently felt down, depressed, or hopeless?", "Do you have thoughts of harming or killing yourself?", "Do you have a plan for harming or killing yourself?", "Have you recently had thoughts about harming or killing others?", "Do you have any dangerous items in your possession?", "Have you noticed less interest or pleasure in doing things?", "Are you here because you tried to hurt yourself?" and "Have you ever tried to hurt yourself before today?". ABUSE ASSESSMENT: No report of abuse. FALL RISK ASSESSMENT: Fall risk assessment completed. No risk factors identified. --06:28 01/20/20 Gerardo Burgos RN.PHYSICAL ASSESSMENTAmbulatory to room.GENERAL / NEURO / PSYCH: Alert. Oriented X 4. Appears in no acute distress.HEENT: Pupils equal, round and reactive to light. Mucous membranes are pink.RESPIRATORY: Mild respiratory distress. Respirations not labored. Chest nontender. Decreasedbreath sounds in the bases bilaterally.CVS: Capillary refill less than 2 seconds. Pulses within normal limits.GI / : Abdomen soft and nontender and normal bowel sounds.SKIN: Skin intact. Skin is warm and dry. Normal skin turgor. --06:29 01/20/20 Gerardo Burgos RN.NURSING PROGRESS NOTESPatient gowned. Head of bed elevated. Reassurance given to the patient. Call light placed in reach.Bed placed in lowest position. Brakes of bed on. Patient ready for evaluation- ED physician notified.--06:30 01/20/20 Gerardo Burgos RN Patient ID band checked for patient name and birthdate: patient confirmed. Flu swab obtained by RN via nasal swab. Labeled in the presence of the patient and sent to lab. Patient ID band checked for patient name and birthdate: patient confirmed. RSV nasal swab obtained by RN via nasal swab. Labeled in the presence of the patient and sent to lab. --07:10 01/20/20 Gerardo Burgos RN Patient ID band checked for patient name and birthdate: patient confirmed. COVID-19 specimen obtained by RN. Labeled in the presence of the patient and sent to lab. --07:10 01/20/20 Gerardo Burgos RN The patient is calm and resting quietly. ( MD Landin seeing pt currently.). Patient waiting for lab results and radiology study to be done. --07:38 01/20/20 Leela Gonzalez R.N. late entry - 07:55 01/20/20. Patient transported to radiology by wheelchair with mask and energy technician. --08:09 01/20/20 Leela Gonzalez R.N. 3 Clinical Report - Nurses [facility] Emergency Department [address] [place] [address] Phone #: ext- [phone] 01/20/2020 06:17 Patient: ABBIE OTT [facility]#: [id number] Sex: F : 1955 Age: 64y late entry - 08:00 01/20/20. Patient returned from radiology by wheelchair with mask and energy technician. --08:09 01/20/20 Leela Gonzalez R.N. late entry - 08:30 01/20/20. Reassessment acuity: LEVEL 3. Rounding: Pain: assessed pain level. Position: states comfortable. Proximity of possessions / care items: call light within easy reach. Set expectations: advised patient of rounding protocol timing and asked if they needed anything else at this time. The patient reports no complaints and she is calm and resting quietly. Overall patient status is the same- she states feels the same. RESPIRATORY: No respiratory distress. --09:11 01/20/20 Leela Gonzalez R.N.DISPOSITION / DISCHARGE Condition at departure: stable. --08:56 01/20/20 Leela Gonzalez R.N. 08:54 01/20/20. BP: 126/95. MAP: 105. HR: 100. RR: 20. O2 saturation: 98% on room air. Temp: 101.4 F (oral). --08:56 01/20/20 Leela Gonzalez R.N. Departure time: late entry - 09:00 01/20/2020. ( MD aware of pt VS, pt states she will take Motrin when she gets home and MD Landin okay with this and okay with D/C.). No learning barriers present. Discharge instructions provided and reviewed with the patient. Reviewed warnings (please see paper copy; QUARENTINE PRECAUTIONS). Reviewed medication(s) (Tessalon). Reviewed fever care instructions. Activity restrictions reviewed. Patient verbalized understanding. Written instructions provided in Cambodian. The patient was discharged by the physician. She was discharged home and unaccom panied at time of discharge. She left ambulatory and via private vehicle. Patient driving. --09:12 01/20/20 Leela Gonzalez R.N. 09:13 01/20/20. Pain level now 0/10. --09:13 01/20/20 Leela Gonzalez R.N.Locked/Released at 01/20/2020 09:13 by Leela Gonzalez R.N. Name Value Range Interpretation Code Description Data Makayla rce(s) Supporting Document(s) ID Date Data Source [id number] 01/20/2020 06:17:00 AM EST [facility] 1 Clinical Report - Physicians/Mid Levels [facility] Emergency Department [address] [place] [address] Phone #: ext- [phone] 01/20/2020 06:17 Patient: ABBIE OTT Sex: F : 1955 Age: 64y Time Seen: 06:33 01/20/2020. Arrived- By private vehicle. Historian- patient.HISTORY OF PRESENT ILLNESS Chief Complaint: CHILLS, NASAL CONGESTION, COUGH, NAUSEA and HEADACHE Says she had fever yesterday. This started 3 days ago and is still present. It was abrupt in onset. When seen in the E.D., severity described as 7 / 10. Modifying factors- worsened by movement and cough. No loss of appetite, weight loss, visual disturbance or muscle aches. She has had a headache and fatigue. Denies sleep problem. No decreased urine output. Similar symptoms previously. (for 3 days). Recent medical care: Not recently seen/assessed.REVIEW OF SYSTEMSThe patient has had fever (At home 102F?). No sore throat, chest pain, abdominal pain, nausea orvomiting. No diarrhea, black stools, bloody stools, difficulty with urination or abnormal bleeding. No skinrash, back pain, calf pain, headache or blackouts. No double vision. The patient has had mild difficultybreathing, sinus drainage, nasal congestion, a mild cough and chills. No difficulty with ambulation.PAST HISTORYPast history not negative. See nurses notes. Hypertension. ObesityHyperlipidemia. Surgeries: Hysterectomy.SOCIAL HISTORYFormer smoker. No alcohol use or drug use. No recent travel.ADDITIONAL NOTESThe nursing notes have been reviewed with agreement regarding the chief complaint, HPI, ROS, PMH andpatient medications and allergies.PHYSICAL EXAMVital Signs: 01/20/2020 06:21 BP: sitting 122/90. MAP: 100. HR: 107. RR: 20. O2 saturation: 95% onroom air. Temp: 100.1 F. Pain level now: 7/10. Have been reviewed and appear to be correct. Bloodpressure normal. Tachycardic. Respiratory rate normal. Temperature normal. Oxygen saturationnormal.Appearance: Alert. Anxious. Patient in mild distress. In distress.Eyes: Pupils equal, round and reactive to light. Eyes normal inspection.ENT: Ears normal. Nose normal. Pharynx normal. 2 Clinical Report - Physicians/Mid Levels [facility] Emergency Department [address] [place] [address] Phone #: ext- [phone] 01/20/2020 06:17 Patient: ABBIE OTT Sex: F : 1955 Age: 64y Neck: Normal inspection. Neck supple. CVS: Normal heart rate and rhythm. Heart sounds normal. Pulses normal. Respiratory: No respiratory distress. Painless inspiration. Breath sounds normal. Chest nontender. Abdomen: No visible injury. Soft and nontender. Bowel sounds normal. No organomegaly. No mass. Obese. Back: Normal inspection. Skin: Skin warm and dry. Normal skin color. No rash. Normal skin turgor. Extremities: Extremities exhibit normal ROM. No lower extremity edema. Neuro: Oriented X 3. No motor deficit. No sensory deficit.PROGRESS AND PROCEDURESCourse of Care: 07:00 Jan 20 2020. Patient is stable. 07:00 Jan 20 2020. Pt. is being worked up for fever / URI symptoms. Influenza swab and COVID swab are being done. All labs pending. Discussed case with physician. Case discussed and ED care transferred. Assumed care (Dr. Naranjo transferring care to Dr. Landin at 07:00 Jan 20 2020).CLINICAL IMPRESSION Acute viral (presumed) rhinitis and laryngitis (Pending Flu / COVID).(Electronically signed by Riley Naranjo, Physician 01/21/2020 21:52) Time Seen: 06:33 01/20/2020. Arrived- By private vehicle. Historian- patient. Disposition decision: 08:39 01/20/2020.HISTORY OF PRESENT ILLNESS Chief Complaint: CHILLS, NASAL CONGESTION, COUGH, NAUSEA and HEADACHE Says she had fever yesterday. This started 3 days ago and is still present. It was abrupt in onset. When seen in the E.D., severity described as . Modifying factors- worsened by movement and cough. No loss of appetite, weight loss, visual disturbance or muscle aches. She has had a headache and fatigue. Denies sleep problem. No decreased urine output. Similar symptoms previously. (for 3 days). Recent medical care: Not recently seen/assessed. 3 Clinical Report - Physicians/Mid Levels [facility] Emergency Department [address] [place] [address] Phone #: ext- [phone] 01/20/2020 06:17 Patient: ABBIE OTT Sex: F : 1955 Age: 64yREVIEW OF SYSTEMSThe patient has had fever (At home 102F?). No sore throat, chest pain, abdominal pain, nausea orvomiting. No diarrhea, black stools, bloody stools, difficulty with urination or abnormal bleeding. No skinrash, back pain, calf pain, headache or blackouts. No double vision. The patient has had mild difficultybreathing, sinus drainage, nasal congestion, a mild cough and chills. No difficulty with ambulation. Allother systems reviewed and are negative.PAST HISTORYPast history not negative. See nurses notes. Hypertension. ObesityHyperlipidemia. Problems: Obesity. Hypercholesterolemia. Additional Surgeries: Hysterectomy. Medications: Losartan Potassium-HCTZ Oral. Atorvastatin Calcium Oral 20 mg, daily. Multivitamin Oral 1 TAB, daily. Allergies: Penicillins. Definite Moderate(hives).SOCIAL HISTORYFormer smoker. No alcohol use or drug use. No recent travel.ADDITIONAL NOTESThe nursing notes have been reviewed with agreement regarding the chief complaint, HPI, ROS, PMH andpatient medications and allergies.PHYSICAL EXAMVital Signs: 01/20/2020 06:21 BP: sitting 122/90. MAP: 100. HR: 107. RR: 20. O2 saturation: 95% onroom air. Temp: 100.1 F. Pain level now: 08/15. Have been reviewed and appear to be correct. Bloodpressure normal. Tachycardic. Respiratory rate normal. Temperature normal. Oxygen saturationnormal.Appearance: Alert. Anxious. Patient in mild distress. In distress.Eyes: Pupils equal, round and reactive to light. Eyes normal inspection.ENT: Ears normal. Nose normal. Pharynx normal.Neck: Normal inspection. Neck supple.CVS: Normal heart rate and rhythm. Heart sounds normal. Pulses normal.Respiratory: No respiratory distress. Painless inspiration. Breath sounds normal. Chest nontender.Abdomen: No visible injury. Soft and nontender. Bowel sounds normal. No organomegaly. No mass. 4 Clinical Report - Physicians/Mid Levels [facility] Emergency Department [address] [place] [address] Phone #: ext- [phone] 01/20/2020 06:17 Patient: ABBIE OTT Sex: F : 1955 Age: 64y Femoral pulses equal. Obese. Back: Normal inspection. Skin: Skin warm and dry. Normal skin color. No rash. Normal skin turgor. Extremities: Extremities exhibit normal ROM. No lower extremity edema. Neuro: Oriented X 3. No motor deficit. No sensory deficit. Reflexes normal.LABS, X-RAYS, AND EKGChest X-ray: No acute disease. Views: PA and lateral. Technique: good. The X-rays were interpretedby the radiologist. Interpretation time: 07:58 01/20/2020.Laboratory Tests: Laboratory tests have been ordered, with results reviewed and considered in themedical decision making process. Chest 2 View: (ADAMARIS: 01/20/2020 07:33) ( MsgRcvd 01/20/2020 08:12) In Progress CHEST 2 VIEWS Reason(s): Cough TRANSPORTATION: IV? O2? Oxygen?(No) Room: ED Exam CHEST [address] [place] [address] PHONE: [phone] FAX: [phone] Name .................. : ZURDO Shetty Acct Number.................. : [id number] ROOM. ................. : -1B MR Number ................... : [id number] Stay type ............. : E/R Discharge Date......... ... : Admit Date ......... : 01/20/20 Admit Phys .................... : WENDYS BR Date of ....... : 1955 Family Phys ................... : FINN GABRIEL Phone .................. : [phone] Age ................................ : 64 Film# .................. .:[id number] Sex ................................. : F Unsigned transcriptions are preliminary reports and do not represent a medical or legal document CHEST 2 VIEWS [id number] COMPLETE:01/20/20 08:07 [place] 145 Reason(s): Cough Fever CHEST TWO VIEW, 01/20/20: INDICATION: Cough. FINDINGS: PA and lateral views of the chest were submitted. Improved inspiratory effort. Improved technique. No infiltrate or effusion. Cardiac silhouette within normal limits. Osseous structures unremarkable. IMPRESSION: No acute cardiopulmonary disease. 5 Clinical Report - Physicians/Mid Levels [facility] Emergency Department [address] [place] [address] Phone #: ext- [phone] 01/20/2020 06:17 Patient: ABBIE OTT Sex: F : 1955 Age: 64y Electronically Reviewed and Signed By DCTNAME , SIGNDATE, LI Transcribe Initials: SSR, Transcribe Date: 01/20/20 08:10, Dictation Date: <<REPDIST>> Page 1of 1CMP: (ADAMARIS: 01/20/2020 07:05) ( MsgRcvd 01/20/2020 08:19) Final results Test Result Flag Units (Reference) COMPREHENSIVE METABOLIC PANEL COMPREHENSIVE METABOLIC PANEL SODIUM 136 mEq/L (134 - 153) POTASSIUM 4.0 mEq/L (3.6 - 5.0) CHLORIDE 99 mEq/L (98 - 107) CO2 28 MEQ/L (22 - 30) GLUCOSE 119 H MG/DL (65 - 110) BUN 12 MG/DL (7 - 21) CREATININE 0.9 MG/DL (0.7 - 1.5) BUN/CREAT 13 (8 - 27) TOTAL PROTEIN 7.0 G/DL (6.3 - 8.2) ALBUMIN 3.8 L G/DL (3.9 - 5.0) GLOBULIN 3.2 GM/DL (2.4 - 3.2) A/G RATIO 1.2 (0.8 - 2.0) CALCIUM 8.9 MG/DL (8.4 - 10.2) TOTAL BILI <0.7 MG/DL (0.2 - 1.3) ALKALINE PHOS 45 U/L (38 - 126) SGOT/AST 78 H U/L (5 - 40) SGPT/ALT 33 U/L (7 - 56) ANION GAP 9.0 mmol/L (8.0 - 16.0) AGE 65 yrs NON- AA GFR >60 mL/min AFR AMER GFR >60 Male GFR Interprentation 20-49 yrs >60 mL/min Vzeoav34-50 yrs >56 mL/min Normal 60-69 yrs >49 mL/min Normal 70-79yrs>42 mL/min Normal 80 and above > 35 mL/min Normal Female GFRInterpretation 20-39 yrs >60 mL/min Normal 40-49 yrs >58 mL/minNormal 50-59 yrs >51 mL/min Normal 60-69 yrs >45 mL/min Zwnvar70-10 yrs >39 mL/min Normal 80 and above >32 mL/min NormalCBC w Diff: (ADAMARIS: 01/20/2020 07:05) ( MsgRcvd 01/20/2020 07:36) Final results Test Result Flag Units (Reference) CBC W/AUTOMATED DIFF COMPLETE BLOOD COUNT WBC 5.8 10/uL (4.2 - 11.0) RBC 4.71 10/uL (4.20 - 5.40) HEMOGLOBIN 14.2 g/dL (12.0 - 16.0) HEMATOCRIT 42.0 % (37.0 - 47.0) MCV 89.2 fL (81.0 - 101) MCH 30.1 pg (27.0 - 34.0) MCHC 33.8 g/dL (31.0 - 36.0) 6 Clinical Report - Physicians/Mid Levels [facility] Department [address] [place] [address] Phone #: ext- [phone] 01/20/2020 06:17 Patient: ABBIE OTT Sex: F : 1955 Age: 64y RDW 13.5 % (11.5 - 14.5) PLATELETS 215 10/uL (150 - 450) MPV 9.2 fL (7.4 - 10.4) NEUT 70.7 % (37.0 - 80.0) LYMPH 17.4 L % (25.0 - 40.0) MONO 10.1 H % (3.0 - 8.0) EOS 0.3 % (0.0 - 7.0) BASO 0.5 % (0.0 - 2.5) %IG 1.0 H % (0.0 - 0.0) %NRBC 0.0 % (0.0 - 0.0) #NEUT 4.07 10/uL (2.00 - 6.90) #LYMPH 1.00 10/uL (0.60 - 3.40) #MONO 0.58 10/uL (0.00 - 0.90) #EOS 0.02 10/uL (0.00 - 0.70) #BASO 0.03 10/uL (0.00 - 0.20) #IG 0.06 10/uL (0.00 - 0.10) #NRBC 0.00 10/uL (0.00 - 0.00) MANUAL DIFF NOT INDICATED RBC MORPH NOT INDICATEDInfluenza Nasal A B: (ADAMARIS: 01/20/2020 07:00) ( [facility] Final results Test Result [place] g Units (Reference) INFLUENZA A NEGATIVE (NORMAL: NEGAT INFLUENZA B NEGATIVE (NORMAL: NEGAT INFLUENZA A REENTER NEGATIVE (NORMAL: NEGAT INFLUENZA B REENTER NEGATIVE (NORMAL: NEGAT PROCEDURAL CONTROL VALID KIT LOT # _[id number] 01/20/2033. . KIT EXP DATE _04.24.20 01/20/2033. .The Influenza A utilizing an isothermal nucleic acid amplification technology for thequalitativedetection of influenza A and B viral RNA.Negative results do not preclude influenza virus infection and shouldnot beused as the sole basis for diagnosis, treatment or other patient managementdecisions.Chest Portable 1 View: (ADAMARIS: 01/20/2020 06:48) ( [facility] 01/20/[facility] 08:09) In ProgressCHEST PORTABLEReason(s): CoughTRANSPORTATION: S IV? O2? Oxygen?(No) Room: ED Exam CHEST PORTABLE [facility] [address] [place] [address] PHONE: [phone] FAX: [phone] Name .................. : ZURDO Shetty Acct Number.................. : [id number] ROOM. ................. : -1B MR Number ................... : [id number] Stay type ............. : E/R Discharge Date......... ... : Admit Date ......... : 01/20/20 Admit Phys .................... : MARCELLA DUBON Date of ....... : 1955 Family Phys ................... : FINN RIOS Phone ........ .......... : [phone] Age ................................ : 64 Film# .................. .:[id number] Sex ................................. : F Unsigned transcriptions are preliminary reports and do not represent a medical or legal document CHEST PORTABLE [id number] COMPLETE:01/20/20 07:06 KJE 142 Reason(s): Cough Fever 7 Clinical Report - Physicians/Mid Levels [facility] Emergency Department [address] [place] [address] Phone #: ext- [phone] 01/20/2020 06:17 Patient: ABBIE OTT Sex: F : 1955 Age: 64y CHEST PORTABLE, 01/20/20: INDICATION: Cough. No prior. FINDINGS: Study is limited due to patient body habitus. Under expansion. Mild cardiomegaly. Aerated lungs noted bilaterally. Evaluation for infiltrates was suboptimal. IMPRESSION: Suboptimal chest x-ray secondary to patient's body habitus. Under expansion of the lungs. Infiltrate is not excluded. Electronically Reviewed and Signed By DCTNAME , SIGNDATE, LI Transcribe Initials: KELLI, Transcribe Date: 01/20/20 08:07, Dictation Date: <<REPDIST>> Page 1 of 1.PROGRESS AND PROCEDURESCourse of Care: 07:43 01/20/20. Hreviewed as above; pt re-examined and has nml exam, waiting forworkup to come in, will do 2 view CXR since portable is poor quality; pt has probable viral URI, bronchitis,r/o Covid 08:11 01/20/20. CBC, rapid flu test and 2 view CXR all nml; pt doing well, will treat for viral bronchitis, URI, r/o Covid; quarantine instructions given; pt understands and agrees. ED care transferred. Case discussed with Dr. Naranjo. Assumed care. Brief hx: as per H. Pending items: lab and xray results. Tentative impression: Bronchitis, URI. Expected disposition: discharge from ED. Patient counseled in person regarding the patient's stable condition, test results, diagnosis and need for follow-up. Patient agrees with plan of care. Disposition: Condition: good and stable. Discharge decision based on the following: patient's condition is stable; patient's condition is improved; patient is ambulatory; patient is active; patient drinking fluids; patient eating; patient's pain is controlled; patient's exam is improved; no abnormal test results; improving condition on multiple repeat evaluations; social support is good; transportation is available; follow-up is available; clinical impression is consistent with outpatient treatment. 8 Clinical Report - Physicians/Mid Levels [facility] Emergency Depa rtment [address] [place] [address] Phone #: ext- [phone] 01/20/2020 06:17 Patient: ABBIE OTT Sex: F : 1955 Age: 64yCLINICAL IMPRESSION Acute viral bronchitis. No viral (influenza) bronchitis. Acute viral rhinitis. Rule out Covid-19.INSTRUCTIONS (PLEASE QUARANTINE AT HOME UNTIL WE CALL YOU WITH A NEGATIVE COVID TEST RESULT). Warnings: Further evaluation is necessary. It is very important to follow up with a healthcare provider. GENERAL WARNINGS: Return or contact your physician immediately if your condition worsens or changes unexpectedly, if not improving as expected, or if other problems arise. Specifically return if pain, vomiting, bleeding, breathing difficulty or fever greater than 102 degrees F and not controlled by acetaminophen or ibuprofen worsens. Your Current Medications: Your current home medications have been reviewed. CONTINUE TAKING THE FOLLOWING MEDICATIONS: Atorvastatin Calcium Oral : 20 mg daily. Losartan Potassium-HCTZ Oral. Multivitamin Oral : 1 TAB daily. Prescription Medications: Tessalon Perles 100 mg capsule Take 1 capsule three times a day for 5 days -- Dispense 15 capsule. Refills: 1. Substitution permitted. Pharmacy - [facility] - [address] [place], [place] [phone]. FaxNumber: [phone]. Follow-up: Return to the emergency department as needed. Follow up with your healthcare provider in seven days even if well. Call for an appointment. Reason for referral: evaluation and treatment. Summary of care provided to patient via paper. Understanding of the discharge instructions verbalized by patient. Expected course of illness, discharge instructions, activity level, diet, prescriptions x1, follow-up appointment and risks and benefits of treatment reviewed with patient and understanding verbalized. Agrees to plan of care.(Electronically signed by Irvin Landin M.D. 01/20/2020 09:14) 9Clinical Report - Physicians/Mid Levels [facility] Emergency Department [address] [place] [address] Phone #: ext- [phone] 01/20/2020 06:17 Patient: ABBIE OTT Sex: F : 1955 Age: 64y Name Value Range Interpretation Code Description Data Makayla rce(s) Supporting Document(s) ID Date Data Source [id number] 01/20/2020 06:17:00 AM [facility] Addenda for ABBIE OTT VisitID: [id number] Date: 16:03Pt blood cultures growing gram positive cocci, no meds given while here, staph species. NKDA. MICHI Hillman aware at 1400, states to prescribe Keflex 250 mg PO QID x10 days. Pt was called at 1450 andleft voicemail. Pt did not call back and pt was called back at 1555 and made aware of all of this, how totake antbx, when to come back, come back with worsening symptoms/any concerns and to f/u with PCPafter Keflex finished to redraw BC and she verbalized understanding. Antbx prescribed to Chris Schmitt per pt request(Electronically signed by Leela Gonzalez R.N. - 01/21/2020 16:03)01/22/2020 8:12covid results positive, pt made aware and results faxed to [facility](Electronically signed by Geovanna Bridges RN - 01/22/2020 8:12) Name Value Range Interpretation Code Description Data Makayla rce(s) Supporting Document(s) ID Date Data Source [id number] 01/20/2020 09:37:00 AM [place] [id number] PHONE: [phone] FAX: [phone] Name .................. : ZURDO Shetty Acct Number.................. : [id number] ROOM. ................. : -1B MR Number ................... : [id number] Stay type ............. : E/R Discharge Date......... ... : Admit Date ......... : 1 03/22/19 Admit Phys .................... : VENERUS BR Date of ....... : 1955 Family Phys ................... : FINN GABRIEL Phone .................. : [phone] Age ................................ : 64 Film# .................. .:[id number] Sex ................................. : F Unsigned transcriptions are preliminary reports and do not represent a medical or legal document CHEST PORTABLE [id number] COMPLETE:01/20/20 07:06 KJE 142 Reason(s): Cough CHEST PORTABLE, 01/20/20: INDICATION: Cough. No prior. FINDINGS: Study is limited due to patient body habitus. Under expansion. Mild cardiomegaly. Aerated lungs noted bilaterally. Evaluation for infiltrates was suboptimal. IMPRESSION: Suboptimal chest x-ray secondary to patient's body habitus. Under expansion of the lungs. Infiltrate is not excluded. Electronically Reviewed and Signed By Gerald Castro MD , 01/20/20 09:37, LI Transcribe Initials: SSR, Transcribe Date: 01/20/20 08:07, Dictation Date: Copy for: 710 MED REC DISCHARGED Page 1 of 1 Name Value Range Interpretation Code Description Data [facility] Supporting Document(s) ID Date Data Source [id number] 01/21/2020 12:56:00 PM [facility] 01/21/20 1253 CALLED TO WENDY Weinberg BY AAYUSH , RESULTS READ BACKThe FilmArray BCID Panel is a qualitative multiplexednucleic acid-based test - PCRNormal results for each test is "Not detected"The BCID panel detects KPC,mecA,Dell/Bresistance,enterococcus,L.monocytogenes,Staphlococcus,S.aureus,St reptococcus,GRP B, GRP A, S.pneumoniae,A.baumanii,Enterobacteriaceae,E.cloacae complex,E.coli,K.oxytoca, K.pneumoniae,Proteus,S.marcescens,H.influenzae,N.meningitidis,P.aeruginosa,C. albicans,C.glabrata ,C.krusei,C.parapsilosis,C.tropicalisTraditional Culture ID and Sensitivities will still beperformed on all positive blood cultures.The FilmArray BCID panel may not distinguish mixed cultureswhen two or more species of the same genus or organism groupare present in a specimen.This test is a qualitative test and does not provide aquantitative value for the organism(s)in the sample.Antimicrobial resistance can occur via multiple mechanisms.A Not detected result for the FilmArray antimicrobialresistance gene assays does not indicate antimicrobialsusceptibility. Subculturing and standard susceptibilitytesting of isolates is requried to determine antimicrobialsusceptibility.Results from this test must be correlated with the clinicalhistory, epidemiological data,and otherdata available to theclinician evaluating the patient.Staphylococcus species Name Value Range Interpretation Code Description Data Makayla rce(s) Supporting Document(s) ID Date Data Source [id number] 01/21/2020 01:06:00 PM [facility] Name Value Range Interpretation Code Description Data [facility] rce(s) Supporting Document(s) CULTURE BLOOD [facility] _CULTURE BLOOD_{ PRELIM POSITIVE AEROBIC BOTTLE GRAM POSITIVE COCCIIN CLUSTERS BCID STAPH SPECIES REPORTTO RAYMOND GONZALEZ IN ER 12.15.20 1305 AEROBIC Growth NORMAL: NEGATIVE [facility] ID Date Data Source [id number] 01/23/2020 07:49:00 AM EST [facility] [address] Name Value Range Interpretation Code Description Data Makayla rce(s) Supporting Document(s) TRIMETHOPRIM/SULFAMETHOXAZOLE <0.5/9.5 [place] sceptible. Indicates for microbiology susceptibilities only. [facility] Amoxicillin+Clavulanate [Susceptibility] by Minimum inhibitory concentration (JEAN) <4/2 Susceptible. Indicates for microbiology s usceptibilities only. [facility] Ampicillin+Sulbactam [Susceptibility] by Minimum inhib itory concentration (JEAN) <8/4 Susceptible. Indicates for microbiology suscepti bilities only. [facility] Cefazolin [Susceptibility] by Minimum inhibitory concentration ( JEAN) <4 Susceptible. Indicates for microbiology susceptibilities only. [facility] Ciprofloxacin [Susceptibility] by Minimum inhibitory concentrati on (JEAN) <1 Susceptible. Indicates for microbiology susceptibilities only. [facility] Clindamycin [Susceptibility] by Minimum inhibitory concentration (JAEN) <0.5 Susceptible. Indicates for microbiology susceptibilities only. [facility] Erythromycin [Susceptibility] by Minimum inhibitory concentratio n (JEAN) <0.5 Susceptible. Indicates for microbiology susceptibilities only. [facility] Gentamicin [Susceptibility] by Minimum inhibitory concentration (JEAN) <4 Susceptible. Indicates for microbiology susceptibilities only. [facility] Oxacillin [Susceptibility] by Minimum inhibitory concentration ( JEAN) <0.25 Susceptible. Indicates for microbiology susceptibilities only. [facility] Tetracycline [Susceptibility] by Minimum inhibitory concentratio n (JEAN) <4 Susceptible. Indicates for microbiology susceptibilities only. [facility] Vancomycin [Susceptibility] by Minimum inhibitory concentration (JEAN) 2 Susceptible. Indicates for microbiology susceptibilities only. [facility] Levofloxacin [Susceptibility] by Minimum inhibitory concentratio n (JEAN) <1 Susceptible. Indicates for microbiology susceptibilities only. [facility] Moxifloxacin [Susceptibility] by Minimum inhibitory concentratio n (JEAN) <0.5 Susceptible. Indicates for microbiology susceptibilities only. [facility] ID Date Data Source [id number] 01/25/2020 06:09:00 PM EST [facility] [address] Name Value Range Interpretation Code Description Data Makayla rce(s) Supporting Document(s) Bacteria identified in Blood by Culture [facility] NO GROWTH AFTER 5 DAYS ID Date Data Source [id number] 01/26/2020 10:41:00 PM [facility] Name Value Range Interpretation Code Description Data Makayla rce(s) Supporting Document(s) CULTURE BLOOD [facility] spital _CULTURE BLOOD_ TEST [place] [address] CLIA# [id number] SEE SCANNED REPORT{ PRELIM ID Date Data Source [id number] 01/20/2020 08:19:00 AM [facility] Name Value Range Interpretation Code Description Data Makayla rce(s) Supporting Document(s) COMPREHENSIVE METABOLIC PANEL [facility] COMPREHENSIVE METABOLIC PANEL Sodium [Moles/volume] in Serum or Plasma 136 mEq/L 134 - 153 [facility] Potassium [Moles/volume] in Serum or Plasma 4.0 mEq/L 3.6 - 5.0 [facility] Chloride [Moles/volume] in Serum or Plasma 99 mEq/L 98 - 107 [facility] Carbon dioxide, total [Moles/volume] in Serum or Plasma 28 MEQ/L 22 - 30 [facility] Glucose [Mass/volume] in Serum or Plasma 119 MG/DL 65 - 110 H [facility] BUN 12 MG/DL 7 - [facility] Creatinine [Mass/volume] in Serum or Plasma 0.9 MG/DL 0.7 - 1.5 [facility] BUN/CREAT 13 8 - 27 [facility] Protein [Mass/volume] in Serum or Plasma 7.0 G/DL 6.3 - 8.2 [facility] Albumin [Mass/volume] in Serum or Plasma 3.8 G/DL 3.9 - 5.0 L [facility] Globulin [Mass/volume] in Serum by calculation 3.2 GM/DL 2.4 - 3.2 [facility] A/G RATIO 1.2 0.8 - 2.0 [facility] Calcium [Mass/volume] in Serum or Plasma 8.9 MG/DL 8.4 - 10.2 [facility] Bilirubin.total [Mass/volume] in Serum or Plasma <0.7 MG/DL 0.2 - 1.3 [facility] Alkaline phosphatase [Enzymatic activity/volume] in Serum or Plasma 45 U/L 38 - 126 [facility] Aspartate aminotransferase [Enzymatic activity/volume] in Serum or Plasma 78 U/L 5 - 40 H [facility] Alanine aminotransferase [Enzymatic activity/volume] in Seru m or Plasma 33 U/L 7 - 56 [facility] Anion gap 3 in Serum or Plasma 9.0 mmol/L 8.0 - 16.0 [facility]GE 64 yrs [facility] GFR >60 mL/min [facility] AFR AMER GFR >60 [facility] Male GFR In terprentation 20-49 yrs >60 mL/min Normal 50-59 yrs >56 mL/min Normal 60-69 yrs >49 mL/min Normal 70-79yrs >42 mL/min Normal 80 and above >35 mL/min Normal Female GFR Interpretation 20-39 yrs >60 mL/min Normal 40-49 yrs >58 mL/min Normal 50-59 yrs >51 mL/min Normal 60-69 yrs >45 mL/min Normal 70-79 yrs >39 mL/min Normal 80 and above >32 mL/min Normal ID Date Data Source [id number] 01/20/2020 07:36:00 AM EST [facility] Name Value Range Interpretation Code Description Data Makayla rce(s) Supporting Document(s) CBC W/AUTOMATED DIFF [facility] COMPLETE BLOOD COUNT Leukocytes [#/volume] in Blood by Automated count 5.8 10^3/uL 4.2 - 1 1.0 [facility] Erythrocytes [#/volume] in Blood by Automated count 4.71 10^6/uL 4. 20 - 5.40 [facility] Hemoglobin [Mass/volume] in Blood 14.2 g/dL 12.0 - 16.0 [facility] Hematocrit [Volume Fraction] of Blood by Automated count 42.0 % 3 7.0 - 47.0 [facility] Erythrocyte mean corpuscular volume [Entitic volume] by Auto mated count 89.2 fL 81.0 - 101 [facility] Erythrocyte mean corpuscular hemoglobin [Entitic mass] by Automated count 30.1 pg 27.0 - 34.0 [facility] Erythrocyte mean corpuscular hemoglobin concentration [Mass/volume] by Automated count 33.8 g/dL 31.0 - 36.0 [facility] Erythrocyte distribution width [Ratio] by Automated count 13.5 % 11.5 - 14.5 [facility] Platelets [#/volume] in Blood by Automated count 215 10^3/uL 150 - 45 0 [facility] Platelet mean volume [Entitic volume] in Blood by Automated count 9.2 fL 7.4 - 10.4 [facility] Neutrophils/100 leukocytes in Blood by Automated count 70.7 % 37. 0 - 80.0 [facility] Lymphocytes/100 leukocytes in Blood by Manual count 17.4 % 25.0 - 40.0 L [facility] Monocytes/100 leukocytes in Blood by Automated count 10.1 % 3.0 - 8.0 H [facility] Eosinophils/100 leukocytes in Blood by Automated count 0.3 % 0.0 - 7.0 [facility] Basophils/100 leukocytes in Blood by Automated count 0.5 % 0.0 - 2.5 [facility] %IG 1.0 % 0.0 - 0.0 H [facility] al %NRBC 0.0 % 0.0 - 0.0 [facility] al Neutrophils [#/volume] in Blood by Automated count 4.07 10^3/uL 2.00 - 6.90 [facility] Lymphocytes [#/volume] in Blood by Automated count 1.00 10^3/uL 0.60 - 3.40 [facility] Monocytes [#/volume] in Blood by Automated count 0.58 10^3/uL 0.00 - 0.90 [facility] Eosinophils [#/volume] in Blood by Automated count 0.02 10^3/uL 0.00 - 0.70 [facility] Basophils [#/volume] in Blood by Automated count 0.03 10^3/uL 0.00 - 0.20 [facility] #IG 0.06 10^3/uL 0.00 - 0.10 [facility] #NRBC 0.00 10^3/uL 0.00 - 0.00 [facility] MANUAL DIFF NOT INDICATED [facility] RBC MORPH NOT INDICATED [facility] ID Date Data Source [id number] 01/20/2020 07:00:00 AM EST [facility] Name Value Range Interpretation Code Description Data Makayla rce(s) Supporting Document(s) SARS coronavirus 2 RNA [facility] This lab was ordered by [facility] and reported by [facility]. ID Date Data Source [id number] 01/21/2020 09:24:00 PM EST [facility] Name Value Range Interpretation Code Description Data Makayla rce(s) Supporting Document(s) SARS-CoV-2, ALEJANDRA Detected Not Detected [facility] This nucleic acid amplification test was developed and its performancecharacteristics determined by [facility]. Nucleic acidamplification tests include PCR and TMA. This test has not been FDAcleared or approved. This test has been authorized by FDA under anEmergency Use Authorization (EUA). This test is only authorized forthe duration of time the declaration that circumstances existjustifying the authorization of the emergency use of in vitrodiagnostic tests for detection of SARS-CoV-2 virus and/or diagnosisof COVID-19 infection under section 564(b)(1) of the Act, 21 U.S.C.360bbb-3(b) (1), unless the authorization is terminated or revokedsooner.When diagnostic testing is negative, the possibility of a falsenegative result should be considered in the context of a patient'srecent exposures and the presence of clinical signs and symptomsconsistent with COVID- 19. An individual without symptoms of COVID-19and who is not shedding SARS-CoV-2 virus would expect to have anegative (not detected) result in this assay. ID Date Data Source [id number] 01/20/2020 07:33:00 AM EST [facility] Name Value Range Interpretation Code Description Data Makayla rce(s) Supporting Document(s) Influenza virus A Ag [Presence] in Nasopharynx by Immunoassa y NEGATIVE NORMAL: NEGATIVE [facility] Influenza virus B Ag [Presence] in Nasopharynx by Immunoassa y NEGATIVE NORMAL: NEGATIVE [facility] NEGATIVENEGATIVE PROCEDURAL CO NTROL VALID KIT LOT # _[id number] 01/20/20. . KIT EXP DATE _04.24.20 01/20/20. .The Influenza A & B assay is a rapid molecular in vitro diagnostic testutilizing an isothermal nucleic acid amplification technology for thequalitative detection of influenza A and B viral RNA.Negative results do not preclude influenza virus infection and should not beused as the sole basis for diagnosis, treatment or other patient managementdecisions. Procedure Social History Code Duration Value Status Description Data Source(s ) Smoking 10/26/2020 12:00:00 AM EDT Patient has never smoked co mpleted Patient has never smoked [facility] ([facility]) Smoking 09/23/2020 12:00:00 AM EDT Former Smoker completed Former Smoker eCW1 ([facility]) Smoking 09/23/2020 12:00:00 AM EDT Former Smoker completed Former Smoker eCW1 ([facility]) Smoking 09/23/2020 12:00:00 AM EDT Former Smoker completed Former Smoker eCW1 ([facility]) Smoking 09/23/2020 12:00:00 AM EDT Former Smoker completed Former Smoker eCW1 ([facility]) Smoking 09/23/2020 12:00:00 AM EDT Former Smoker completed Former Smoker eCW1 ([facility]) Smoking 06/08/2020 12:00:00 AM EDT Former Smoker completed Former Smoker eCW1 ([facility]) Smoking 06/08/2020 12:00:00 AM EDT Former Smoker completed Former Smoker eCW1 ([facility]) Smoking 06/08/2020 12:00:00 AM EDT Former Smoker completed Former Smoker eCW1 ([facility]) Smoking 03/09/2020 12:00:00 AM EST Former Smoker completed Former Smoker eCW1 ([facility]) Smoking 02/11/2020 12:00:00 AM EST Former Smoker completed Former Smoker eCW1 ([facility]) Smoking 02/11/2020 12:00:00 AM EST Former Smoker completed Former Smoker eCW1 ([facility]) Smoking 02/11/2020 12:00:00 AM EST Former Smoker completed Former Smoker eCW1 ([facility]) Smoking 01/23/2020 12:00:00 AM EST Former Smoker completed Former Smoker eCW1 ([facility]) Smoking 01/23/2020 12:00:00 AM EST Former Smoker completed Former Smoker eCW1 ([facility]) Smoking 01/23/2020 12:00:00 AM EST Former Smoker completed Former Smoker eCW1 ([facility]) Smoking 01/23/2020 12:00:00 AM EST Former Smoker completed Former Smoker eCW1 ([facility]) Smoking 01/23/2020 12:00:00 AM EST Former Smoker completed Former Smoker eCW1 ([facility]) Smoking 01/23/2020 12:00:00 AM EST Former Smoker completed Former Smoker eCW1 ([facility]) Vital Signs ID Date Data Source UNK Name Value Range Interpretation Code Description Data Source(s) Systolic blood pressure 138 mm[Hg] 138 mm[Hg] M [facility] ([facility]) Diastolic blood pressure 81 mm[Hg] 81 mm[Hg] [facility] ([facility]) Heart rate 87 /min 87 /min [facility] ([facility]) Body temperature 98.4 [degF] 98.4 [degF] [facility] ([facility]) Body height 63 [in_i] 63 [in_i] [facility] ([facility]) 5'3" Body weight 251.00 [lb_av] 251.00 [lb_av] [facility] Body mass index (BMI) [Ratio] 44.5 kg/m2 44.5 k g/m2 [facility] ([facility]) [place] body weight 115 [lb_av] 115 [lb_av] [facility] ([facility]) Body weight 113.854 kg 113.854 kg [facility] ([facility], ) Body surface area Derived from formula 2.13 m2 2.13 m2 [facility] ([facility], ) Body weight 258 [lb_av] 258 [lb_av] eCW1 ([facility]) Body height 64 [in_i] 64 [in_i] eCW1 ([facility]) Body mass index (BMI) [Ratio] 44.28 kg/m2 44.28 kg/m2 eCW1 ([facility]) Heart rate 83 /min 83 /min eCW1 ([facility]) Respiratory rate 18 /min 18 /min eCW1 ([facility]) Body temperature 98.3 [degF] 98.3 [degF] eCW1 ( [facility]) Systolic blood pressure 132 mm[Hg] 132 mm[Hg] e CW1 ([facility]) Diastolic blood pressure 75 mm[Hg] 75 mm[Hg] eCW1 ([facility]) Body temperature 98.6 [degF] 98.6 [degF] [facility] ([facility]) Respiratory rate 18 /min 18 /min [facility] ( [facility]) Oxygen saturation in Arterial blood by Pulse oximetry 96 % 96 % [facility] ([facility]) Body weight 255.00 [lb_av] 255.00 [lb_av] [facility] T ([facility]) Body weight 115.668 kg 115.668 kg [facility] ([facility]) Body height 63 [in_i] 63 [in_i] [facility] ([facility]) 5'3" Body mass index (BMI) [Ratio] 45.2 kg/m2 45.2 k g/m2 [facility] ([facility]) Body surface area Derived from formula 2.14 m2 2.14 m2 [facility] [facility] Systolic blood pressure 115 mm[Hg] 115 mm[Hg] [facility] ([facility]) Diastolic blood pressure 78 mm[Hg] 78 mm[Hg] [facility] ([facility]) Heart rate 111 /min 111 /min [facility] ([facility]) Systolic blood pressure 132 mm[Hg] 132 mm[Hg] [facility] ([facility]) Diastolic blood pressure 83 mm[Hg] 83 mm[Hg] [facility] ([facility]) Heart rate 90 /min 90 /min [facility] ([facility]) Body height 63 [in_i] 63 [in_i] [facility] ([facility]) 5'3" Body mass index (BMI) [Ratio] 46.6 kg/m2 46.6 k g/m2 [facility] ([facility]) Body surface area Derived from formula 2.17 m2 2.17 m2 [facility] ([facility]) Body temperature 98.2 [degF] 98.2 [degF] [facility] ([facility]) Respiratory rate 18 /min 18 /min [facility] Oxygen saturation in Arterial blood by Pulse oximetry 97 % 97 % [facility] ([facility]) Body weight 263.00 [lb_av] 263.00 [lb_av] MEDEN T ([facility]) Body weight 119.297 kg 119.297 kg [facility] ([facility]) Body weight 255 [lb_av] 255 [lb_av] eCW1 ([facility]) Body height 64 [in_i] 64 [in_i] eCW1 ([facility]) Body mass index (BMI) [Ratio] 43.77 kg/m2 43.77 kg/m2 eCW1 ([facility]) Heart rate 88 /min 88 /min eCW1 ([facility]) Respiratory rate 18 /min 18 /min eCW1 ([facility]) Body temperature 97.2 [degF] 97.2 [degF] eCW1 ( [facility]) Systolic blood pressure 107 mm[Hg] 107 mm[Hg] e CW1 ([facility]) Diastolic blood pressure 67 mm[Hg] 67 mm[Hg] eCW1 ([facility]) Body weight 260 [lb_av] 260 [lb_av] eCW1 ([facility]) Systolic blood pressure 111 mm[Hg] 111 mm[Hg] e CW1 ([facility]) Diastolic blood pressure 75 mm[Hg] 75 mm[Hg] eCW1 ([facility]) Body height 64 [in_i] 64 [in_i] eCW1 ([facility]) Body mass index (BMI) [Ratio] 44.62 kg/m2 44.62 kg/m2 eCW1 ([facility]) Heart rate 79 /min 79 /min eCW1 ([facility]) Respiratory rate 18 /min 18 /min eCW1 ([facility]) Body temperature 98.4 [degF] 98.4 [degF] eCW1 ( [facility]) Body weight 258 [lb_av] 258 [lb_av] eCW1 ([facility]) Body height 64 [in_i] 64 [in_i] eCW1 ([facility]) Body mass index (BMI) [Ratio] 44.28 kg/m2 44.28 kg/m2 eCW1 ([facility]) Heart rate 75 /min 75 /min eCW1 ([facility]) Respiratory rate 18 /min 18 /min eCW1 ([facility]) Body temperature 97.4 [degF] 97.4 [degF] eCW1 ( [facility]) Systolic blood pressure 128 mm[Hg] 128 mm[Hg] e CW1 ([facility]) Diastolic blood pressure 75 mm[Hg] 75 mm[Hg] eCW1 ([facility]) ID Date Data Source [id number] 2020 12:19:58 PM EST [facility] Name Value Range Interpretation Code Description Data Source(s) WEIGHT RECORDED 263.40 pounds 263.40 pounds [facility] Height 64 Inches 064 Inches [facility] WEIGHT RECORDED 156.56 pounds 156.56 pounds [facility] Height 64 Inches 064 Inches [facility] Patient Treatment Plan of Care Planned Activity Planned Date Details Description Data Source (s) Amitriptyline Hydrochloride 25 MG Oral Tablet 06/08/2020 12:00:00 A M EDT eCW1 ([facility]) Amitriptyline Hydrochloride 25 MG Oral Tablet 06/08/2020 12:00:00 A M EDT eCW1 ([facility]) Amitriptyline Hydrochloride 25 MG Oral Tablet 06/08/2020 12:00:00 A M EDT eCW1 ([facility])
--- NOTE | 2021-01-07 09:15 | ROOR ---
Patient Name: Ava Ott Procedure Date: 01/07/2021 8:53 AM Date of : 1955 Age: 65 Room: [facility] Gender: Female Note Status: Finalized Procedure: Colonoscopy Indications: Screening in patient at increased risk: Family history of 1st-degree relative with colorectal cancer before age 60 years Providers: Agapito Swartz Jr, MD Referring MD: Chapito Santana DO [place] Provider: Medicines: Propofol per Anesthesia Complications: No immediate complications. Procedure: Pre-Anesthesia Assessment: - Prior to the procedure, a History and Physical was performed, and patient medications and allergies were reviewed. The patient is competent. The risks and benefits of the procedure and the sedation options and risks were discussed with the patient. All questions were answered and informed consent was obtained. Patient identification and proposed procedure were verified by the physician and the nurse in the pre-procedure area and in the procedure room. Mental Status Examination: alert and oriented. Airway Examination: normal oropharyngeal airway and neck mobility. Respiratory Examination: clear to auscultation. CV Examination: normal. ASA Grade Assessment: II - A patient with mild systemic disease. After reviewing the risks and benefits, the patient was deemed in satisfactory condition to undergo the procedure. The anesthesia plan was to use moderate sedation / analgesia (conscious sedation). Immediately prior to administration of medications, the patient was re-assessed for adequacy to receive sedatives. The heart rate, respiratory rate, oxygen saturations, blood pressure, adequacy of pulmonary ventilation, and response to care were monitored throughout the procedure. The physical status of the patient was re-assessed after the procedure. The Colonoscope was introduced through the anus and advanced to the cecum, identified by appendiceal orifice and ileocecal valve. The colonoscopy was performed without difficulty. The patient tolerated the procedure well. The quality of the bowel preparation was adequate. Findings: The recto-sigmoid colon, descending colon, transverse colon, ascending colon, cecum, appendiceal orifice and ileocecal valve appeared normal. Two polyps were found in the rectum and sigmoid colon. The polyps were small in size. These polyps were removed with a cold snare. Resection and retrieval were complete. Impression: - The recto-sigmoid colon, descending colon, transverse colon, ascending colon, cecum, appendiceal orifice and ileocecal valve are normal. - Two small polyps in the rectum and in the sigmoid colon, removed with a cold snare. Resected and retrieved. Recommendation: - Discharge patient to home (ambulatory). - Repeat colonoscopy in 5 years for surveillance. Procedure Code(s): --- Professional --- 46501, Colonoscopy, flexible; with removal of tumor(s), polyp(s), or other lesion(s) by snare technique Diagnosis Code(s): --- Professional --- Z80.0, Family history of malignant neoplasm of digestive organs K62.1, Rectal polyp K63.5, Polyp of colon CPT copyright 2019 [employer] [employer]. All rights reserved. The codes documented in this report are preliminary and upon rural health consultant review may be revised to meet current compliance requirements. Agapito Swartz MD Agapito Swartz Jr, MD 01/07/2021 9:15:22 AM Electronically signed by Agapito Swartz Jr, MD Number of Addenda: 0 Note Initiated On: 01/07/2021 8:53 AM Estimated Blood Loss: Estimated blood loss: none.
[2021-01-07 09:39] VITALS: BP 137/87
== END 2021-01-07 09:42 | disposition home or self-care (01) ==
LOC: M OPP 07:45
PROVIDERS: ATTEND Surgery
DX: Z12.11 Encounter for screening for malignant neoplasm of colon (principal); Z80.0 Family history of malignant neoplasm of digestive organs; D12.6 Benign neoplasm of colon, unspecified; K62.1 Rectal polyp; Z79.899 Other long term (current) drug therapy; Z88.0 Allergy status to penicillin; Z88.5 Allergy status to narcotic agent

== ENCOUNTER → 2021-09-01 | Outpatient (CLI) | payer MEDICARE, BC, OTHER ==
[~2021-09-01] MED LIST changes: +ISOVUE-300 61% 50ML VIAL As Ordered ONE; +LIDOCAINE 1% MDV 20ML VIAL As Ordered ONE; -LIDOCAINE 2% 100MG/5ML SDV (FOR ANES.) As Ordered ONE; +LOSA50TA28 PO; -LOSA50TA88 PO; -NS 1,000 ML IV ONE; +methylPREDNISolone SUSP 40MG/ML 1ML VIAL (DEPO MEDROL) As Ordered ONE; -propofoL 200 MG/20 ML VIAL As Ordered ONE
== END ==
LOC: M RADPRO 10:31
PROVIDERS: ATTEND Physician Assistant
DX: M19.011 Primary osteoarthritis, right shoulder (principal); N39.0 Urinary tract infection, site not specified
CPT/HCPCS: 20610; 76000; 87088; 87186; J1030; Q9967

== ENCOUNTER → 2021-09-01 | Outpatient (REF) | payer MEDICARE, OTHER, BC ==
[~2021-09-01] MED LIST changes: -ISOVUE-300 61% 50ML VIAL As Ordered ONE; -LIDOCAINE 1% MDV 20ML VIAL As Ordered ONE; -methylPREDNISolone SUSP 40MG/ML 1ML VIAL (DEPO MEDROL) As Ordered ONE
== END ==
LOC: M LAB REF 15:57
PROVIDERS: ATTEND Student in an Organized Health Care Education/Training Program
DX: R30.0 Dysuria (principal)

== ENCOUNTER → 2021-09-09 | Outpatient (CLI) | payer MEDICARE, OTHER, BC ==
[2021-09-09 13:38] LABS: BLOOD UREA NITROGEN 14 MG/DL (7-18); CALCIUM LEVEL 8.9 MG/DL (8.8-10.2); CARBON DIOXIDE LEVEL 30 MEQ/L (21-32); CHLORIDE LEVEL 102 MEQ/L (98-107); CHOLESTEROL LEVEL 126 MG/DL (<200); CREATININE FOR GFR 0.79 MG/DL (0.55-1.30); GLOMERULAR FILTRATION RATE > 60.0 (>45); GLUCOSE, FASTING 91 MG/DL (70-100); HDL CHOLESTEROL 55 MG/DL (>40); LDL CHOLESTEROL 54 MG/DL (<100); NON-HDL-C 71 MG/DL; POTASSIUM SERUM 4.3 MEQ/L (3.5-5.1); SODIUM LEVEL 138 MEQ/L (136-145); TRIGLYCERIDES LEVEL 83 MG/DL (<150)
[2021-09-10 00:48] LABS: HEMOGLOBIN A1c 5.5 %
== END ==
LOC: M WUC 08:46
PROVIDERS: ATTEND Family Medicine
DX: R73.03 Prediabetes (principal); E78.2 Mixed hyperlipidemia

== ENCOUNTER → 2021-09-09 | Outpatient (REF) | payer MEDICARE, OTHER, BC | LOC: M WUC 09:28 | PROVIDERS: ATTEND Physician Assistant | DX: N39.0 Urinary tract infection, site not specified (principal) ==

== ENCOUNTER → 2022-09-17 | Outpatient (CLI) | payer MEDICARE, BC, OTHER ==
[~2022-09-17] MED LIST changes: -AMIT25TA17 PO; +AMIT25TA19 PO
[2022-09-17 11:11] LABS: ALBUMIN 3.4 G/DL (3.2-5.2); ALKALINE PHOSPHATASE 56 U/L (46-116); ALT/SGPT 37 U/L (7.0-40); AST/SGOT 67 U/L (<34); BILIRUBIN,TOTAL 0.5 MG/DL (0.3-1.2); BLOOD UREA NITROGEN 13 MG/DL (9-23); CALCIUM LEVEL 8.9 MG/DL (8.3-10.6); CARBON DIOXIDE LEVEL 29 MMOL/L (20-31); CHLORIDE LEVEL 104 MMOL/L (98-107); CHOLESTEROL LEVEL 128 MG/DL (<200); CHOLESTEROL RISK RATIO 3.17 (<5); CREATININE FOR GFR 0.72 MG/DL (0.55-1.30); GLOMERULAR FILTRATION RATE > 60.0 (>45); GLUCOSE, FASTING 109 MG/DL (74-106); HDL CHOLESTEROL 40.3 MG/DL (>40); LDL CHOLESTEROL 67.3 MG/DL (<100); NON-HDL-C 87.7 MG/DL; POTASSIUM SERUM 4.7 MMOL/L (3.5-5.1); SODIUM LEVEL 140 MMOL/L (136-145); TOTAL PROTEIN 6.7 G/DL (5.7-8.2); TRIGLYCERIDES LEVEL 102 MG/DL (<150)
== END ==
LOC: M LAB 10:23
PROVIDERS: ATTEND Family Medicine
DX: E78.2 Mixed hyperlipidemia (principal); R73.03 Prediabetes

== ENCOUNTER → 2023-09-05 | Outpatient (CLI) | payer MEDICARE, BC, OTHER ==
[2023-09-05 12:26] LABS: ALBUMIN 3.5 G/DL (3.2-5.2); ALKALINE PHOSPHATASE 46 U/L (46-116); ALT/SGPT 26 U/L (7.0-40); AST/SGOT 38 U/L (<34); BILIRUBIN,TOTAL 0.9 MG/DL (0.3-1.2); BLOOD UREA NITROGEN 13 MG/DL (9-23); CALCIUM LEVEL 9.1 MG/DL (8.3-10.6); CARBON DIOXIDE LEVEL 29 MMOL/L (20-31); CHLORIDE LEVEL 105 MMOL/L (98-107); CHOLESTEROL LEVEL 132 MG/DL (<200); CHOLESTEROL RISK RATIO 3.78 (<5); CREATININE FOR GFR 0.73 MG/DL (0.55-1.30); GLOMERULAR FILTRATION RATE > 60.0 (>45); GLUCOSE, FASTING 92 MG/DL (74-106); HDL CHOLESTEROL 34.9 MG/DL (>40); LDL CHOLESTEROL 69.9 MG/DL (<100); NON-HDL-C 97.1 MG/DL; POTASSIUM SERUM 4.1 MMOL/L (3.5-5.1); SODIUM LEVEL 140 MMOL/L (136-145); TOTAL PROTEIN 6.3 G/DL (5.7-8.2); TRIGLYCERIDES LEVEL 136 MG/DL (<150)
[2023-09-05 12:42] LABS: HEMOGLOBIN A1c 5.5 % (4.0-6.0)
== END ==
LOC: M LAB 11:09
PROVIDERS: ATTEND Family Medicine
DX: R73.03 Prediabetes (principal); E78.2 Mixed hyperlipidemia

== ENCOUNTER → 2024-10-02 | Outpatient (CLI) | payer MEDICARE, BC ==
[2024-10-02 10:26] LABS: BASO # 0.1 10^3/uL (0.0-0.2); BASO % 1.0 % (0.0-1.0); EOS # 0.5 10^3/uL (0.0-0.5); EOS % 5.2 % (0.0-3.0); LYMPH # 2.9 10^3/uL (1.5-5.0); LYMPH % 33.7 % (24.0-44.0); MONO # 0.6 10^3/uL (0.0-0.8); MONO % 6.5 % (2.0-8.0); NEUTROPHILS # 4.6 10^3/uL (1.5-8.5); NEUTROPHILS % 52.9 % (36.0-66.0); PLATELET COUNT, AUTOMATED 212 10^3/uL (150-450)
[2024-10-02 10:46] LABS: ALT/SGPT 32.0 U/L (7.0-40); AST/SGOT 51.0 U/L (<34); CALCIUM LEVEL 9.6 MG/DL (8.3-10.6); CARBON DIOXIDE LEVEL 29.0 MMOL/L (20-31); CHLORIDE LEVEL 103.0 MMOL/L (98-107); CHOLESTEROL LEVEL 133.0 MG/DL (<200); CHOLESTEROL RISK RATIO 3.1 (<5); CREATININE FOR GFR 0.78 MG/DL (0.55-1.30); GLOMERULAR FILTRATION RATE 81.7 (>39); LDL CHOLESTEROL 65.1 MG/DL (<100); NON-HDL-C 90.1 MG/DL; POTASSIUM SERUM 4.3 MMOL/L (3.5-5.1); SODIUM LEVEL 142.0 MMOL/L (136-145); TRIGLYCERIDES LEVEL 125.0 MG/DL (<150)
[2024-10-02 10:47] LABS: ESTIMATED AVERAGE GLUCOSE 117.0 MG/DL (60-110)
[2024-10-02 10:50] LABS: TOTAL 25(OH) VITAMIN D 38.8 NG/ML (20.0-100.0)
== END ==
LOC: M RAD 09:21
PROVIDERS: ATTEND Family Medicine
DX: Z00.00 Encounter for general adult medical examination without abnormal findings (principal); M79.641 Pain in right hand; M19.041 Primary osteoarthritis, right hand; E78.2 Mixed hyperlipidemia; R73.02 Impaired glucose tolerance (oral); E55.9 Vitamin D deficiency, unspecified